=== PATIENT | male | born 1940 | race Caucasian/White ===

== ENCOUNTER 2017-02-18 09:12 | Inpatient (IN) | payer MEDICARE ==
[2017-02-18 10:00] LABS: #Basophils 0.1 thou/uL (0.0-0.2); #Eosinphils 0.1 thou/uL (0.0-0.7); #Lymphocytes 1.9 thou/uL (1.20-3.40); #Monocytes 0.7 thou/uL (0.11-0.59); #Neutrophils 6.1 thou/uL (1.40-6.50); %Eosinophils 1.6 % (0.0-10.0); %Lymphocytes 21.7 % (21.0-51.0); Hematocrit 37.9 % (42.0-52.0); Red Blood Cell (RBC) Count 3.95 mill/uL (4.70-6.10); White Blood Cell (WBC) Count 8.9 thou/uL (4.8-10.8)
[2017-02-18 10:16] LABS: Troponin I 0.012 ng/mL (< 0.028)
[2017-02-18 10:20] LABS: ALT (SGPT) 11 U/L (8-55); AST (SGOT) 19 U/L (5-34); Alkaline Phosphatase 63 U/L (40-150); Anion Gap 12 mmol/L (10-20); BUN (Urea Nitrogen) 23 mg/dL (8.4-25.7); CK (CPK) 96 U/L (30-200); Calc. Creatinine Clearance 0 mL/min (70-130); Calcium 10.1 mg/dL (7.8-10.44); Carbon Dioxide 26 mmol/L (23-31); Chloride 103 mmol/L (98-107); Estimated GFR-MDRD 43; Globulin 3.2 g/dL (2.4-3.5); Lipase 11 U/L (8-78)
[2017-02-18 10:22] LABS: Lactic Acid - Sepsis 4.9 mmol/L (0.5-2.2)
--- NOTE | 2017-02-18 10:44 | RAD ---
CHEST 1 VIEW: HISTORY: Chest pain. COMPARISON: 11/22/14. FINDINGS: Cardiac silhouette is magnified by projection. Pulmonary vasculature is unremarkable. Mediastinum is midline with aortic calcification, postoperative changes, and a multilead left subclavian cardiac electronic device. Subtle opaque disk projects over the left upper chest at the entry site of the electronic device wire lead and is favored to represent extrinsic artifact. There is mild parenchymal scarring at the lung bases. air sampling and monitoring leads overlie the chest. IMPRESSION: Chronic-type findings, as detailed above. POS: [facility]
[2017-02-18 11:07] LABS: Prothrombin Time 15.7 SEC (12.0-14.7)
--- NOTE | 2017-02-18 11:14 | PDOC.EVN ---
Event Note - Event Note Event Note: pt seen and exmained . h & p dictated #[id number]
[2017-02-18] MEDS ORDERED: Ondansetron HCl/PF 4 MG/2 ML Vial IVP PRN (12:54)
[2017-02-18] MEDS ORDERED: Ondansetron ODT 4 MG TAB SL PRN (12:54)
[2017-02-18] MEDS ORDERED: Sodium Chloride 0.9% 1,000 ML IV SCH (12:54)
[2017-02-18] MEDS ORDERED: Aspirin 325 MG TAB PO SCH (13:00)
[2017-02-18 13:34] LABS: Troponin I Less than 0.010 ng/mL (< 0.028)
--- NOTE | 2017-02-18 14:43 | HP ---
DATE OF ADMISSION: 02/18/2017 CHIEF COMPLAINT: Low blood pressure and chest pain. HISTORY OF PRESENT ILLNESS: The patient is a 77-year-old male with past medical history significant for coronary artery disease, status post CABG x3; CA; hypertension; type 2 diabetes mellitus; dysli pidemia; and status post AICD placement. Patient woke up this morning and became dizzy and lighthea ded. He also had substernal chest pain, radiating to his back. He checked his blood pressure and i t was on the lower side, so he called the EMS. His blood pressure was at that time noted to be 103/ 52, earlier it was 80. The patient denies any vomiting. He had no fever; however, he came to the E [facility] to be checked out. Over here, his blood pressure is noted to be normal. Patient says his cardiol ogist has been cutting down on his blood pressure medication because his blood pressure has been gallo pping. Patient has some dizzy spells and he attributes it to low blood pressure. Last time, he saw his styrene dehydration reactor operator, this was about 8 months ago. Currently, he is feeling better. Chest pain has re solved. PAST MEDICAL HISTORY: 1. Coronary artery disease. 2. Status post coronary artery bypass surgery. 3. Hypertension. 4. Type 2 diabetes mellitus. 5. History of asbestosis. 6. Ischemic cardiomyopathy. 7. Status post AICD placement. 8. Hyperlipidemia. PAST SURGICAL HISTORY: He has had bypass surgery and appendectomy. ALLERGIES: No known drug allergies. MEDICATIONS: Patient is currently on Coreg 3.125 mg p.o. b.i.d., this dose was recently adjusted be cause of low blood pressure by his styrene dehydration reactor operator. The patient is also taking atorvastatin, aspirin, and metformin. FAMILY HISTORY: Strongly positive for heart disease. SOCIAL HISTORY: The patient is retired. He lives with his family. He has a remote history of smok ing, currently denies any tobacco abuse. No history of alcohol or substance abuse. REVIEW OF SYSTEMS: Constitutional: No history of fever, weight loss, weight gain, night sweats, ch sina in appetite. HEENT: No visual disturbances, hearing problems, or headache. He has dizziness as mentioned above. Cardiac: As per history of present illness. Respiratory: No history of cough , wheezing, asthma, or hemoptysis. Gastrointestinal: Transient nausea as mentioned in the HPI. No abdominal pain, constipation, diarrhea, black stools, or blood in stools. Genitourinary: No de león e in urinary frequency, dysuria, or hematuria. Hematological: No easy bruising or bleeding. No hi story of cancer. Neurological: No history of tingling, numbness, paresthesias, or gait problems. PHYSICAL EXAMINATION: GENERAL: This is an elderly male, in no apparent distress. VITAL SIGNS: His blood pressure currently in the emergency room is 140/75, pulse rate 68, respirati ons 16, temperature 97.5. HEENT: Atraumatic, normocephalic. Pupils are reactive to light and accommodation. No pallor or ic terus. Oral cavity shows tongue is central. No central cyanosis or pallor. NECK: Supple. No thyromegaly, no JVD, no bruit. CHEST: On inspection, there is a midline sternotomy scar. AICD is in place in the left subclavian site. Chest is otherwise clear to auscultation. No rhonchi, no wheezing, no pleural rub. No inter costal retraction. The patient is not tachypneic. CARDIOVASCULAR: S1, S2 normal. No S3, S4, or murmur. ABDOMEN: Soft, nontender. Bowel sounds active. No guarding or rebound. No free fluid. No masses . EXTREMITIES: No clubbing or cyanosis. There is trace pitting pedal edema. Peripheral pulses are 2 + and equal. NEUROLOGIC: He is awake, alert, and oriented x3. No focal neurological deficit is noted. LABORATORY AND DIAGNOSTIC DATA: His white count is 8.9, hemoglobin 13, hematocrit 37.9, platelets o f 127. His sodium is 136, potassium 4.8, chloride 130, CO2 of 26, anion gap 12, BUN 23, creatinine 1.55, glucose 140. Lactic acid is 4.9, calcium 10.1, total bilirubin 1, AST 19, ALT 11, alkaline ph osphatase is 63, CK 96, troponin 0.012. BNP 276, total protein 7, albumin 3.8, globulin 3.2, lipase is 11. Chest x-ray is within normal limits. ASSESSMENT AND PLAN: 1. Transient hypertension, now resolved, likely secondary to medications. 2. Chest pain, doubt acute coronary syndrome, likely secondary to hypotension. 3. Resolved nausea secondary to hypotension. 4. Lactic acidosis likely secondary to metformin. No evidence of sepsis. 5. Coronary artery disease. 6. Ischemic cardiomyopathy. 7. Status post coronary artery bypass graft. 8. Type 2 diabetes mellitus. 9. Hypertension, controlled. 10. Hyperlipidemia. 11. Thrombocytopenia secondary to aspirin. 12. End-stage renal disease, chronic kidney disease, overall stable. 13. History of automatic implantable cardioverter defibrillator placement. DISCUSSION: At this time, the patient is medically stable. We will follow up on serial cardiac iso enzymes. We will hold the Coreg. We will get cardiology consultation. We will continue with other medications. We will put him on SCD for DVT prophylaxis. We will monitor the platelet count. We will add Protonix for stress ulcer prophylaxis. We will put him on sliding scale insulin coverage. Hold metformin due to the lactic acidosis and monitor sugars. Monitor creatinine. Further recomme ndations will be made depending on course of clinical events.
[2017-02-18 15:38] LABS: Troponin I 0.018 ng/mL (< 0.028)
[2017-02-18 16:39] VITALS: BMI 24.0
[2017-02-18] MEDS ORDERED: FLU VACC TS2017-18 (>65YR) 0.5 ML SYRINGE IM ONE (17:15)
[2017-02-18] MEDS: Atorvastatin Calcium 40 MG TAB PO SCH (21:12)
--- NOTE | 2017-02-18 23:06 | ULT ---
BILATERAL CAROTID DUPLEX ULTRASOUND: 02/18/17 HISTORY: Bilateral carotid bruit. TECHNIQUE: An scale ultrasound with color flow and spectral doppler imaging of the extracranial carotid arter y system is performed bilaterally. FINDINGS: There is plaque formation on both sides. The peak systolic velocity in the right ICA measures 70 cm/ s with an end diastolic velocity of 22 cm/s and systolic ratio of 0.97. The peak systolic velocity in the left ICA measures 127 cm/s with an end diastolic velocity of 33 cm /s and systolic ratio of 1.84. Flow in both vertebral arteries remains antegrade. IMPRESSION: Moderate (50-69%) stenosis involving the left ICA. POS: [facility]
--- NOTE | 2017-02-18 23:51 | CON ---
DATE OF CONSULTATION: 02/18/2017 INDICATION FOR CONSULTATION: This is a 77-year-old patient with a history of coronary artery diseas e, cardiomyopathy, and dizziness as well as lightheaded and hypertension. HISTORY OF PRESENT ILLNESS: This unfortunate 77-year-old gentleman has a significant past medical h istory, which includes coronary artery disease, myocardial infarction, bypass surgery in 2006 with a DURAN to the left anterior descending, reverse saphenous vein graft to the first and second obtuse m arginal branches of the left circumflex and a totally occluded RCA. At the time of the cardiac cath eterization, he was noted to have a distal disease in the obtuse marginal branch of about 30%, and t he saphenous vein graft to the second obtuse marginal branch was occluded. The DURAN was still paten t, but he did have some disease noted in the distal left anterior descending artery. Ejection fract ion at that time, I believe, was 25% to 30% when his cardiac catheterization, which was performed, I believe, in 2010. His bypass surgery was in 2006. He also has a history of type 2 diabetes, hyper tension in addition to ischemic cardiomyopathy. He has undergone an AICD implant due to history of ventricular tachycardia. He does have occasional atrial pacing noted when he has been seen by the e lectrophysiologist. He has been having some issues at home with being lightheaded and has occasiona l falls. He has had an episode today where he got up around 5:00 to 5:30 this morning, which is not unusual for him. He takes medications and shortly within the hour after that he became dizzy and l ightheaded. He took his blood pressure, it was found to be low. He then called his son, who came i n and also had difficulties in taking his blood pressure. They went [facility]. A repeat blood pressure was still in the 100s, and he presented here to the emergen cy room. By the time he is now here, his blood pressures in the 160s, it is quite possible his bloo d pressure was decreased due to taking the medications. They have been decreasing his medications r ecently due to hypotension and episodes of lightheadedness, but he also can tell the symptoms if blo od pressure is elevated and then he developed headaches. At this time, he appears to be stable. He denied any chest pain. He has had no episodes of syncope. He was uncertain as to whether or not clarisa carr may received the shock from the AICD a couple weeks ago. He said he woke up at night and felt lik e he had something made him jerk upwards, but he was uncertain whether or not he had been shocked. He has not had any calls from the paint roller winder. He does have a bedside monitor, making him t hink that perhaps he just had a dream, it was not necessarily shocked by the defibrillator. He did have a history of ventricular tachycardia in the past, for which he underwent the AICD implant as we ll as due to his cardiomyopathy. At this time, he denies any chest pain. He is feeling better, and dizziness also has improved. He at this time does have some mild headache, however. His cardiac e nzymes are unremarkable. His EKG is unremarkable for any acute episodes or any acute ischemic de león es. He has atrial pacing and ventricular sensing, and he has had no arrhythmias since being on the monitor on the telemetry floor, and his BNP is only 270. His laboratory data will be discussed late r, but there are no significant acute changes, and cardiac enzymes are negative. PAST MEDICAL HISTORY: Significant for the coronary artery disease as noted above with myocardial in farction and bypass surgery. He has hypertension, type 2 diabetes, history of ischemic cardiomyopat hy. He has AICD implanted due to history of ventricular tachycardia, hyperlipidemia, he also had a history of asbestosis. He has also had an appendectomy. ALLERGIES: None. MEDICATIONS PRIOR TO ADMISSION: Included Coreg, atorvastatin, aspirin, and metformin. FAMILY HISTORY: Positive for coronary artery disease. SOCIAL HISTORY: He is a . He denies any smoking at this time. He has no significant alcoho l use. He continues to live with his family. REVIEW OF SYSTEMS: He has dyspnea on exertion. He had occasional chest discomfort this morning; ho wever, it radiated to the back area and then resolved. He has not had any events since his bypass s urgery. He has some history of occasional nausea with headaches. He has had some right eye visual problems. 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 He has had so me lower extremity edema. Otherwise, 12-point review of systems is unremarkable except what was not ed in the history of present illness. PHYSICAL EXAMINATION: GENERAL: Reveals an elderly gentleman, who is in no acute distress at this time. VITAL SIGNS: The blood pressure elevated at 160/77, heart rate 61 and regular. He has atrial pacin g and ventricular sensing. Respiratory rate is 18. He is afebrile. HEENT: Shows head to be normocephalic and atraumatic. Carotid pulses are present. He does have bi lateral carotid bruits. CHEST: Clear to auscultation without rales, rhonchi, or wheezing. CARDIOVASCULAR: Exam reveals a regular rate and rhythm. He does have a very soft systolic murmur n oted at the apex and also at the upper sternal border, but otherwise no significant abnormalities we re noted. He has a well-healed surgical incision underneath the left infraclavicular area due to th e AICD implant. ABDOMEN: Soft, nontender, without any palpable masses. EXTREMITIES: Showed no clubbing or cyanosis. He had very mild trace edema noticed in the lower leg s and the ankle area. Pedal pulses are present. NEUROLOGIC: He appears to be intact with normal strength and tone for someone of his age. SKIN: Warm and dry at this time. RADIOGRAPHIC DATA: His EKG shows atrial pacing with ventricular sensing and no acute changes otherw ise, and no arrhythmias noted. LABORATORY DATA: Shows a creatinine of 1.55 with a BUN of 23. Hemoglobin is 13. BNP was 270. Car diac enzymes are unremarkable. They are negative for myocardial infarction. His INR is 1.2. IMPRESSION: 1. Episode of dizziness in a 77-year-old gentleman with hypotension; however, here the blood pressu re has been elevated. This may have been due to taking his medications this morning. We will sandy nue to adjust the medications. He is on a very low dose of medications at this time. 2. Bilateral carotid bruits. We will need to obtain a carotid Doppler to determine the severity of his severe carotid artery stenosis. This may be causing some of his dizziness and lightheadedness. 3. Type 2 diabetes, which will be dealt with by the primary service. 4. History of ischemic cardiomyopathy. This appears to be relatively stable, but we will need to d etermine whether or not he has been having some ventricular tachycardia again as this may also be ca using some hypotension, but he did not realize any shocks except for one possible episode a couple w eeks ago. We will determine this by evaluation of the automatic implantable cardioverter defibrilla tor. 5. Hyperlipidemia. We will continue his medications. At this time, he appears to be stable, and i f necessary, we may need to resume some of his home medications. At this time, these are being held due to his hypotension, and we will continue to follow him very carefully.
[2017-02-19] MEDS ORDERED: ISOVUE-370 76%-LOCM 1 ML ONE (04:08)
[2017-02-19] MEDS: Aspirin 325 mg Enteric Coated Tablet PO SCH (09:24)
[2017-02-19] MEDS ORDERED: Insulin Regular 300 UNITS/3 ML VIAL SC PRN (09:40)
[2017-02-19] MEDS ORDERED: Dextrose 50% Abboject 50 ML SYRINGE SLOW IVP PRN (09:40)
[2017-02-19] MEDS ORDERED: Dextrose 5% in Water 1,000 ML IV PRN (09:40)
--- NOTE | 2017-02-19 10:58 | PDOC.PN ---
- Subjective Encounter Start Date: 02/19/17 Encounter Start Time: 11:20 Subjective: Pt still with occasional dizziness. no CP. BP on higher side -: cardio input appreciated. pt had possible shocks at home -: for AICD interrogation. carotid doppler results noted - Objective Vital Signs & Weight: Vital Signs (12 hours) Temp Pulse Resp BP BP BP BP 02/19/17 07:40 97.5 F L 60 18 156/72 H 02/19/17 04:00 97.6 F 72 16 135/75 117/55 L 181/79 H 02/19/17 00:00 97.6 F 78 16 152/70 H Pulse Ox 02/19/17 07:40 99 02/19/17 04:00 99 02/19/17 00:00 97 Weight Weight 175 lb 14.4 oz I&O: 02/18/17 02/19/17 02/20/17 06:59 06:59 06:59 Intake Total 560 Output Total 1445 Balance -885 Result Diagrams: 02/18/17 09:33 02/18/17 09:33 Additional Labs: Accuchecks 02/19/17 02/18/17 06:00 21:04 POC Glucose 111 H 114 H Phys Exam - Physical Examination HEENT: PERRLA, moist MMs Neck: no nodes, no JVD Respiratory: no wheezing, no rales, no rhonchi, clear to auscultation bilateral Cardiovascular: RRR, no significant murmur Gastrointestinal: soft, non-tender, no distention Neurological: non-focal Psychiatric: A&O x 3 Skin: no rash Dx/Plan (1) Low BP Status: Acute (2) Chest pain Code(s): R07.9 - CHEST PAIN, UNSPECIFIED Status: Acute (3) CAD (coronary artery disease) Code(s): I25.10 - ATHSCL HEART DISEASE OF [place] CORONARY ARTERY W/O ANG PCTRS Status: Acute (4) Hx of CABG Status: Acute (5) Ischemic cardiomyopathy Code(s): I25.5 - ISCHEMIC CARDIOMYOPATHY Status: Acute (6) AICD (automatic cardioverter/defibrillator) present Code(s): Z95.810 - PRESENCE OF AUTOMATIC (IMPLANTABLE) CARDIAC DEFIBRILLATOR Status: Acute - Plan will cont current care . f/u on AICD interrogation results -: ? resume BP meds at night. pt has nocturia d/t BPH. ? doxazosin -: SSIC * .
--- NOTE | 2017-02-19 16:51 | PDOC.CTH ---
Cardiology Progress Note - Subjective Pt. seen and evaluated. No new complaints. No events overnight. Pacing. AICD interrogated. No events found. No indication the he received a shock. Normal function of the device.carotid eval. by doppler indicates 50-69% left internal carotid stenosis. This may be contributing to his balance problems but not necessarily. - Objective Vital Signs Temp Pulse Resp BP Pulse Ox 02/19/17 11:05 97.6 F 65 20 158/78 H 100 02/19/17 08:00 97.5 F L 60 18 99 02/19/17 07:40 97.5 F L 60 18 156/72 H 99 Weight 175 lb 14.4 oz 02/18/17 02/19/17 02/20/17 06:59 06:59 06:59 Intake Total 560 Output Total 1445 Balance -885 - Physical Examination General/Neuro: alert & oriented x3 Neck: other: (left carotid bruit) Lungs: CTA Heart: RRR Abdomen: no HSM - Telemetry Telemetry Rhythm: pacing - Labs Result Diagrams: 02/18/17 09:33 02/18/17 09:33 Troponin/CKMB CK-MB (CK-2) 3.2 ng/mL (0-6.6) 02/18/17 09:33 Troponin I 0.018 ng/mL (< 0.028) 02/18/17 15:04 - Assessment/Plan 1. CMY- stable. AICD checked. No events noted. 2. CAD - stable 3. left carotid artery stenosis. Plan for CTA. Review of Systems - Review of Systems Constitutional: denies: no symptoms reported, see HPI, chills, diaphoresis, fever, malaise, weakness, other Respiratory: denies: no symptoms reported, see HPI, cough, orthopnea, shortness of breath, SOB with excertion, SOB at rest, stridor, wheezing, other Cardiac (ROS): denies: no symptoms reported, see HPI, chest pain, edema, irregular heart rate, lightheadedness, palpitations, syncope, other ABD/GI: denies: no symptoms reported, see HPI, abdomen distended, abdominal pain , blood streaked bowels, constipated, diarrhea, difficulty swallowing, nausea, poor appetite, poor fluid intake, rectal bleeding, vomiting, other Musculoskeletal: denies: no symptoms reported, see HPI, back pain, gout, joint pain, joint swelling, muscle pain, muscle stiffness, neck pain, other Neurological: reports: other (unsteady gait and balance )
--- NOTE | 2017-02-19 21:03 | CT ---
CTA NECK WITH 3D VOLUME RENDERING: Clinical history: Carotid stenosis. Comparison: Carotid ultrasound, previous day. FINDINGS: 3D volume rendering performed of the carotid arteries. Calcified and ulcerative plaque is seen within the imaged aortic arch. The great vessel origins whic h emanate from the aortic arch reveal no high grade focal stenosis or occlusion. There is mild regio nal calcification. There is multifocal mild calcification of the right subclavian artery without hig h grade focal stenosis. The left subclavian artery is patent. Evaluation of each common carotid artery reveals mild scattered vascular calcification without high grade focal stenosis. There is eccentrically located prominent plaque at the right carotic bulb with out high grade focal stenosis of the right ICA. Moderate focal stenosis is present at the origin of the cervical left ICA related to calcified and noncalcified plaque. Calcification seen at each visua lized distal, intracranial carotid artery. Relatively co-dominant bilateral vertebral arteries are p resent with scattered vascular calcification although no high grade focal stenosis of the visualized vertebral arteries. Prominent narrowing of the left external carotid artery origin is present. IMPRESSION: Scattered atherosclerotic vascular disease. This does result in moderate focal stenosis at the origi n of the cervical left ICA. POS: [facility]
[2017-02-19] MEDS: Atorvastatin Calcium 40 MG TAB PO SCH (21:45)
[2017-02-20] MEDS: Aspirin 325 mg Enteric Coated Tablet PO SCH (08:56)
--- NOTE | 2017-02-20 11:27 | PDOC.PN ---
- Subjective Encounter Start Date: 02/20/17 Encounter Start Time: 11:25 Patient seen at bedside. Still feeling dizzy, was orthostatic this morning. - Objective Vital Signs & Weight: Vital Signs (12 hours) Temp Pulse Resp BP BP BP BP 02/20/17 08:00 97.8 F 69 18 02/20/17 07:24 97.8 F 69 18 165/80 H 02/20/17 05:23 97.9 F 67 18 102/59 L 83/52 L 147/71 H Pulse Ox 02/20/17 08:00 97 02/20/17 07:24 97 02/20/17 05:23 97 Weight Weight 173 lb I&O: 02/19/17 02/20/17 02/21/17 06:59 06:59 06:59 Intake Total 560 940 Output Total 1445 1450 Balance -885 -510 Result Diagrams: 02/18/17 09:33 02/18/17 09:33 Additional Labs: Accuchecks 02/20/17 02/19/17 02/19/17 06:22 20:50 17:17 POC Glucose 115 H 125 H 90 02/19/17 13:11 POC Glucose 114 H Phys Exam - Physical Examination HEENT: moist MMs Neck: no JVD Respiratory: no wheezing, clear to auscultation bilateral Cardiovascular: RRR Gastrointestinal: soft Musculoskeletal: pulses present Neurological: moves all 4 limbs Psychiatric: normal affect, A&O x 3 Dx/Plan (1) Dizziness Code(s): R42 - DIZZINESS AND GIDDINESS Status: Acute (2) AICD (automatic cardioverter/defibrillator) present Code(s): Z95.810 - PRESENCE OF AUTOMATIC (IMPLANTABLE) CARDIAC DEFIBRILLATOR Status: Chronic (3) CAD (coronary artery disease) Code(s): I25.10 - ATHSCL HEART DISEASE OF [place] CORONARY ARTERY W/O ANG PCTRS Status: Chronic (4) Chest pain Code(s): R07.9 - CHEST PAIN, UNSPECIFIED Status: Resolved - Plan cont current plan of care, plan discussed w/ family, PT/OT, social sciences professor, DVT proph w/SCDs * All BP Meds held. * Check random cortisol * Appreciate Cardiology input. The patient has noted carotid artery stenosis. It is unclear if this is the cause of his dizziness vs a cardiac issue. * Possible catherization if renal function improves or stabilizes * Will follow up further cardiac recommendations.
[2017-02-20 12:27] LABS: Anion Gap 9 mmol/L (10-20); BUN (Urea Nitrogen) 18 mg/dL (8.4-25.7); Calc. Creatinine Clearance 56 mL/min (70-130); Calcium 9.5 mg/dL (7.8-10.44); Carbon Dioxide 27 mmol/L (23-31); Chloride 103 mmol/L (98-107); Estimated GFR-MDRD 60
[2017-02-20] MEDS ORDERED: Communication Order-Pharmacy FS SCH (13:30)
[2017-02-20] MEDS: Atorvastatin Calcium 40 MG TAB PO SCH (21:59)
[2017-02-21] MEDS: Aspirin 325 mg Enteric Coated Tablet PO SCH (05:05)
--- NOTE | 2017-02-21 06:41 | EKG ---
Test Reason : CHESTPAIN Blood Pressure : / mmHG Vent. Rate : 063 BPM Atrial Rate : 062 BPM P-R Int : 000 ms QRS Dur : 090 ms QT Int : 412 ms P-R-T Axes : 000 022 -30 degrees QTc Int : 421 ms Electronic atrial pacemaker Possible Inferior infarct , age undetermined Abnormal ECG Confirmed by BRADY ABRAHAM, FRANCES ([id number]), movie editor CHRISTIE MANUEL ([id number]) on 02/21/2017 6:41:08 AM Referred By: Confirmed By:FRANCES ABREU MD
[2017-02-21] MEDS ORDERED: Sodium Chloride 0.65% Nasal 44 ML BOT EA NARE PRN (07:57)
[2017-02-21] MEDS ORDERED: Ondansetron ODT 4 MG TAB PO PRN (07:57)
[2017-02-21] MEDS ORDERED: HYDROcodone/Acetaminophen 5/325 mg Tablet PO PRN (07:57)
[2017-02-21] MEDS ORDERED: Acetaminophen 325 MG TAB PO PRN (07:57)
[2017-02-21] MEDS ORDERED: Nitroglycerin 0.4 MG TAB (25 Tab Bottle) SL PRN ×2 (07:57→08:38)
[2017-02-21] MEDS ORDERED: Zolpidem Tartrate 5 MG TAB PO PRN (07:57)
[2017-02-21] MEDS ORDERED: Eucerin (Mineral Oil/Petrolatum,White) 30 gm Jar TOP PRN (07:57)
[2017-02-21] MEDS ORDERED: Milk Of Magnesia 30 ML UDCUP PO PRN (07:57)
[2017-02-21] MEDS ORDERED: Loratadine 10 MG TAB PO PRN (07:57)
[2017-02-21] MEDS ORDERED: Senokot 8.6 MG TAB PO PRN (07:57)
[2017-02-21] MEDS ORDERED: Mag-Al 1200 mg/1200 mg/30 ML UDCUP PO PRN (07:57)
[2017-02-21] MEDS ORDERED: Diabetic Tussin 200 MG/10 ML UDCUP PO PRN (07:57)
[2017-02-21] MEDS ORDERED: Loperamide HCl 2 MG CAP PO PRN (07:57)
[2017-02-21] MEDS ORDERED: Artificial Tears 18 DROP/0.9 ML EA EYE PRN (07:57)
[2017-02-21] MEDS ORDERED: Ondansetron HCl/PF 4 MG/2 ML Vial IVP PRN (07:57)
[2017-02-21] MEDS ORDERED: Acetaminophen/Codeine 30-300mg Tablet PO PRN ×2 (08:38)
[2017-02-21] MEDS ORDERED: traMADol HCl 50 MG TAB PO PRN (08:38)
[2017-02-21] MEDS ORDERED: Sodium Chloride 0.9% 200 ML IV SCH (08:45)
[2017-02-21] MEDS: Famotidine 20 MG TAB PO SCH ×2 (09:30→21:11)
--- NOTE | 2017-02-21 10:10 | PDOC.PN ---
- Subjective Encounter Start Date: 02/21/17 Encounter Start Time: 09:00 -: old records requested/rev Patient seen and examined. No new complaints. No overnight events, s/p cardiac cath - Objective MAR Reviewed: Yes Vital Signs & Weight: Vital Signs (12 hours) Temp Pulse Resp BP Pulse Ox 02/21/17 04:00 97.2 F L 70 18 169/78 H 97 Weight Weight 169 lb 6 oz I&O: 02/20/17 02/21/17 02/22/17 06:59 06:59 06:59 Intake Total 940 75 Output Total 1450 975 Balance -510 -900 Result Diagrams: 02/18/17 09:33 02/20/17 11:59 Additional Labs: Accuchecks 02/21/17 02/20/17 02/20/17 06:32 21:34 17:21 POC Glucose 105 115 H 149 H 02/20/17 11:47 POC Glucose 145 H Radiology Reviewed by me: Yes EKG Reviewed by me: Yes Phys Exam - Physical Examination Constitutional: NAD HEENT: PERRLA, moist MMs, sclera anicteric Neck: no JVD, supple Respiratory: no wheezing, no rales, no rhonchi Cardiovascular: RRR, no significant murmur, no rub Gastrointestinal: soft, non-tender, no distention, positive bowel sounds Musculoskeletal: no edema, pulses present Neurological: non-focal, normal sensation, moves all 4 limbs Psychiatric: normal affect, A&O x 3 Skin: no rash, normal turgor Dx/Plan (1) Acute kidney failure Status: Resolved (2) Dizziness Code(s): R42 - DIZZINESS AND GIDDINESS Status: Acute (3) Lactic acidosis Code(s): E87.2 - ACIDOSIS Status: Resolved (4) Low BP Status: Resolved (5) AICD (automatic cardioverter/defibrillator) present Code(s): Z95.810 - PRESENCE OF AUTOMATIC (IMPLANTABLE) CARDIAC DEFIBRILLATOR Status: Chronic (6) CAD (coronary artery disease) Code(s): I25.10 - ATHSCL HEART DISEASE OF [place] CORONARY ARTERY W/O ANG PCTRS Status: Chronic (7) Carotid stenosis, left Code(s): I65.22 - OCCLUSION AND STENOSIS OF LEFT CAROTID ARTERY Status: Chronic (8) Hx of CABG Status: Chronic (9) Ischemic cardiomyopathy Code(s): I25.5 - ISCHEMIC CARDIOMYOPATHY Status: Chronic (10) Chest pain Code(s): R07.9 - CHEST PAIN, UNSPECIFIED Status: Resolved - Plan cont current plan of care * s/p cardiac cath, showed diffuse disease * spoke with cardiology, will add ranexa * cardiovascular consulted for carotid stenosis * will monitor today * medication reviewed as below * symptomatic treatment. Review of Systems - Review of Systems ENT: negative: Ear Pain, Ear Discharge, Nose Pain, Nose Discharge, Nose Congestion, Mouth Pain, Mouth Swelling, Throat Pain, Throat Swelling, Other Respiratory: negative: Cough, Dry, Shortness of Breath, Hemoptysis, SOB with Excertion, Pleuritic Pain, Sputum, Wheezing Cardiovascular: negative: Chest Pain, Palpitations, Orthopnea, Paroxysmal Noc. Dyspnea, Edema, Light Headedness, Other Gastrointestinal: negative: Nausea, Vomiting, Abdominal Pain, Diarrhea, Constipation, Melena, Hematochezia, Other Genitourinary: negative: Dysuria, Frequency, Incontinence, Hematuria, Retention , Other Musculoskeletal: negative: Neck Pain, Shoulder Pain, Arm Pain, Back Pain, Hand Pain, Leg Pain, Foot Pain, Other - Medications/Allergies Allergies/Adverse Reactions: Allergies Allergy/AdvReac Type Severity Reaction Status Date / Time No Known Drug Allergies Allergy Verified 11/22/14 18:53 Medications: Current Medications Acetaminophen (Tylenol) 650 mg PO Q4H PRN PRN Reason: Headache/Fever or Mild Pain Acetaminophen/Codeine Phosphate (Tylenol #3) 1 tab PO Q4H PRN PRN Reason: Mild Pain (1-3) Acetaminophen/Codeine Phosphate (Tylenol #3) 2 tab PO Q4H PRN PRN Reason: Moderate Pain (4-6) Hydrocodone Bitart/Acetaminophen ([place] 5/325) 1 tab PO Q4H PRN PRN Reason: Moderate Pain (4-6) Al Hydroxide/Mg Hydroxide (Maalox) 15 ml PO Q4H PRN PRN Reason: Heartburn or Indigestion Artificial Tears (Tears Naturale) 0 drop EA EYE PRN PRN PRN Reason: Dry Eyes Aspirin (Ecotrin) 325 mg PO DAILY [facility] Last Admin: 02/21/17 05:05 Dose: 325 mg Atorvastatin Calcium (Lipitor) 80 mg PO HS [facility] Last Admin: 02/20/17 21:59 Dose: 80 mg Dextrose/Water (Dextrose 50%) 25 gm SLOW IVP PRN PRN PRN Reason: Hypoglycemia Famotidine (Pepcid) 20 mg PO BID DEISI Glucagon (Glucagon) 1 mg IM PRN PRN PRN Reason: Hypoglycemia Guaifenesin (Robitussin Sf) 200 mg PO Q4H PRN PRN Reason: Cough Hydralazine HCl (Apresoline) 10 mg SLOW IVP Q4H PRN PRN Reason: Systolic BP > 180 Dextrose/Water (D5w) 1,000 mls @ 0 mls/hr IV .Q0M PRN; As Directed PRN Reason: Hypoglycemia Insulin Human Regular (Humulin R) 0 units SC .MILD SLIDING SCALE PRN PRN Reason: Mild Correctional Scale Loperamide HCl (Imodium) 2 mg PO PRN PRN PRN Reason: Diarrhea/Loose Stools Loratadine (Claritin) 10 mg PO DAILYPRN PRN PRN Reason: Sinus Symptoms Magnesium Hydroxide (Milk Of Magnesium) 30 ml PO DAILYPRN PRN PRN Reason: Constipation Mineral Oil/White Petrolatum (Eucerin Cream) 0 gm TOP BIDPRN PRN PRN Reason: Dry Skin Nitroglycerin (Nitrostat) 0.4 mg SL Q5MIN PRN PRN Reason: Chest Pain Nitroglycerin (Nitrostat) 0.4 mg SL Q5MIN PRN PRN Reason: Chest Pain Ondansetron HCl (Zofran Odt) 4 mg PO Q6H PRN PRN Reason: Nausea/Vomiting Ondansetron HCl (Zofran) 4 mg IVP Q6H PRN PRN Reason: Nausea/Vomiting Ranolazine (Ranexa) 500 mg PO BID DEISI Senna (Senokot) 2 tab PO HSPRN PRN PRN Reason: Constipation Sodium Chloride (Flush - Normal Saline) 10 ml IVF PRN PRN PRN Reason: Saline Flush Sodium Chloride ([place] Nasal Hasty 0.65%) 0 ml EA NARE QIDPRN PRN PRN Reason: Nasal Congestion Tramadol HCl (Ultram) 50 mg PO Q6H PRN PRN Reason: Moderate Pain (4-6) Zolpidem Tartrate (Ambien) 5 mg PO HSPRN PRN PRN Reason: Insomnia
[2017-02-21] MEDS ORDERED: Iopamidol 370 76% 50 ML VIAL FS ONE (12:35)
[2017-02-21] MEDS ORDERED: Iopamidol 370 76% 100 ML VIAL ONE (12:35)
--- NOTE | 2017-02-21 13:32 | CON ---
DATE OF CONSULTATION: 02/21/2017 HISTORY OF PRESENT ILLNESS: Mr. Beebe is a 77-year-old gentleman, who was admitted with hypoten julio, dizziness, and lightheadedness. He has a history of coronary artery disease, status post dominga nary bypass grafting x3. He also has a defibrillator. He has undergone cardiac catheterization, wh ich shows diffuse non-bypassable disease. While he has been here, he has had a carotid ultrasound performed, which shows on the left internal carotid artery peak systolic velocity of 127. The ratio is 1.84. On the right, the peak systolic v elocity is 70 with a ratio of 0.97. This was followed up with a CT angiogram, which shows a moderat e degree of stenosis in his left internal carotid artery origin. The patient has had no other neurologic symptoms that can be attributed to his cerebral circulation. PAST MEDICAL HISTORY: 1. Coronary artery disease. 2. Left carotid stenosis. 3. Hypertension. 4. Diabetes mellitus. 5. History of asbestosis. 6. Ischemic cardiomyopathy, status post ICD placement. 7. Hyperlipidemia. PAST SURGICAL HISTORY: 1. Coronary artery bypass grafting x3. 2. Appendectomy. CURRENT MEDICATIONS: Noted. ALLERGIES: None. SOCIAL HISTORY: He is retired and lives at home. He does not use tobacco, alcohol or other substan rajendra. REVIEW OF SYSTEMS: Ten point review of systems is performed and is negative except as above. PHYSICAL EXAMINATION: GENERAL: Well-developed, well-nourished man in no acute distress. VITAL SIGNS: Height is 6 feet, weight 169 pounds, BSA is 1.98. Temperature is 97.4, pulse is 63 an d regular, blood pressure 169/78. NECK: Supple. He has no carotid bruits. LUNGS: Chest is clear bilaterally. HEART: Rhythm is regular. Sternum has healed nicely. ABDOMEN: Soft and nontender. EXTREMITIES: No edema. VASCULAR: He has equal motor function bilaterally. He has no facial droop. Vision has had no srivastava ges. ASSESSMENT AND PLAN: Asymptomatic left carotid stenosis of less than 70%. I will see him back in 6 months and repeat his ultrasound and follow him on a chronic basis. The patient is already on a st atin and aspirin. Thank you for consult.
[2017-02-21] MEDS: Atorvastatin Calcium 40 MG TAB PO SCH (21:10)
[2017-02-22] MEDS: Aspirin 325 mg Enteric Coated Tablet PO SCH (09:46)
[2017-02-22] MEDS: Famotidine 20 MG TAB PO SCH (09:47)
--- NOTE | 2017-02-22 10:43 | DIS ---
PRIMARY CARE PHYSICIAN: Dr. Karl Feliciano DATE OF ADMISSION: 02/18/2017 DATE OF DISCHARGE: 02/22/2017 DISCHARGE DISPOSITION: Home. PRIMARY DISCHARGE DIAGNOSES: 1. Acute kidney failure, improved. 2. Lactic acidosis, resolved. 3. Hypotension, resolved. 4. Chest pain, ruled out acute coronary syndrome. 5. Dizziness, likely due to hypotension, resolved. 6. Status post cardiac catheterization. 7. Left carotid stenosis. SECONDARY DISCHARGE DIAGNOSES: Ischemic cardiomyopathy with AICD, coronary artery disease, history of coronary artery bypass grafting. PRIMARY PROCEDURE/OPERATION: Cardiac catheterization was performed by Dr. Ochoa and the patient was not a surgical candidate. RADIOLOGICAL INVESTIGATION: Chest x-ray was normal. Carotid Doppler showed carotid stenosis on the left side. CT angiography showed carotid stenosis on the left side. SIGNIFICANT LABS: WBC 8.9, hemoglobin 13.0, platelets 127, INR 1.0, D-dimer 0.35, sodium 135, creatinine 1.18, calcium 9.5. Cortisol 6.50. LFTs normal. Cardiac enzymes negative x3. Lactic acid improved to 1.5. BNP 270, blood culture negative. DISCHARGE MEDICATIONS: Aspirin 325 mg p.o. daily, Lipitor 80 mg p.o. at bedtime , Coreg 3.125 mg p.o. b.i.d., Pepcid 20 mg p.o. b.i.d., Ranexa 500 mg p.o. b.i.d., metformin 500 mg p.o. daily. CONTRAINDICATIONS: None. CODE STATUS: FULL CODE. INPATIENT CONSULTANTS: Dr. Ochoa and Dr. Montejo was consulted while in hospital. Dr. Librado Mueller was consulted while in hospital. TEST RESULTS PENDING ON DISCHARGE: None. ALLERGIES: No known drug allergy. DISCHARGE PLAN: Post hospital, the patient will follow up with Dr. Karl Feliciano in 1 week. The patient is advised to make appointment with Dr. Librado Muellre and Dr. Ochoa as directed. HOSPITAL COURSE: A 77-year-old male with above mentioned medical problems who was admitted by Dr. Garcia on 02/18/2017. On admission, the patient was having low blood pressure, had dizziness and chest pain. Routine blood tests showed elevated creatinine and the patient was found with acute kidney failure. The patient was given IV fluid and after that his renal function improved. His dizziness resolved and we did serial cardiac enzymes to rule out acute coronary syndrome and that was also negative. The patient had acute kidney failure and that is why metformin was kept on hold. His lactic acidosis improved with hydration. We did a carotid ultrasound that also showed some carotid stenosis. After that we did a CT angiography which also showed carotid stenosis on the left side. Dr. Librado Mueller was consulted and he recommended to follow up with him on an outpatient basis. While in hospital, Dr. Forrest Ochoa and Dr. Montejo was following and they did a cardiac catheterization and the patient was found with diffuse disease and that is why they started on Ranexa therapy. At this point, the patient is hemodynamically stable. He is back to his normal. He wants to go home. Cardiology cleared him for discharge. The patient is seen and examined at bedside today. VITAL SIGNS: Currently, temperature 97.6, pulse 69, respiratory rate 16, saturation 98%, blood pressure 139/69, weight 170 pounds. GENERAL: The patient is currently alert, awake, no acute distress. HEAD: Normocephalic, atraumatic. EYES: Pupils round, reactive to light. Extraocular muscles intact. ENT: Oropharynx within normal limits. LUNGS: Clear to auscultation without any rhonchi or rales. CARDIAC: S1, S2 regular without any murmur. ABDOMEN: Soft and benign. EXTREMITIES: No edema. NEUROLOGIC: Nonfocal examination. The patient is medically stable for discharge today. All new medication prescriptions given to him. Total time spent on discharge day more than 30 minutes MTDD
[2017-02-22 19:50] VITALS: TEMP 97.4
[2017-02-22 20:05] VITALS: BP 112/54
== END 2017-02-22 13:15 | disposition home or self-care (01) | DRG 683 ==
LOC: ERS 09:12 → 2NO 12:20
PROVIDERS: ADMIT Internal Medicine; ATTEND Internal Medicine
PROC: B2181ZZ Fluoroscopy of Left Internal Mammary Bypass Graft using Low Osmolar Contrast (ICD-10-PCS; principal; 2017-02-18)
PROC: 4A023N7 Measurement of Cardiac Sampling and Pressure, Left Heart, Percutaneous Approach (ICD-10-PCS; 2017-02-18)
PROC: B2131ZZ Fluoroscopy of Multiple Coronary Artery Bypass Grafts using Low Osmolar Contrast (ICD-10-PCS; 2017-02-18)
PROC: B2111ZZ Fluoroscopy of Multiple Coronary Arteries using Low Osmolar Contrast (ICD-10-PCS; 2017-02-18)
PROC: B2151ZZ Fluoroscopy of Left Heart using Low Osmolar Contrast (ICD-10-PCS; 2017-02-18)
DX: N17.9 Acute kidney failure, unspecified (principal); E87.2 Acidosis; I12.0 Hypertensive chronic kidney disease with stage 5 chronic kidney disease or end stage renal disease; E11.22 Type 2 diabetes mellitus with diabetic chronic kidney disease; D69.59 Other secondary thrombocytopenia; I95.9 Hypotension, unspecified; I65.22 Occlusion and stenosis of left carotid artery; I25.10 Atherosclerotic heart disease of native coronary artery without angina pectoris; Z95.1 Presence of aortocoronary bypass graft; I25.2 Old myocardial infarction; I25.5 Ischemic cardiomyopathy; Z95.810 Presence of automatic (implantable) cardiac defibrillator; E78.5 Hyperlipidemia, unspecified; N18.6 End stage renal disease; Z79.84 Long term (current) use of oral hypoglycemic drugs; Z87.891 Personal history of nicotine dependence; T39.015A Adverse effect of aspirin, initial encounter; Z79.82 Long term (current) use of aspirin; R07.9 Chest pain, unspecified
CPT/HCPCS: 36415; 36416; 70498; 71010; 80048; 80053; 82533; 82553; 83605; 83690; 83880; 84484; 85025; 85379; 85610; 85730; 87040; 90471; 90682; 93005; 93455; 93880; 96360; 96361; C1769; G0008; J1644; Q2036

== ENCOUNTER 2017-04-28 16:02 | Emergency (ER) | payer MEDICARE ==
[2017-04-28 16:42] LABS: #Eosinphils 0.2 thou/uL (0.0-0.7); #Lymphocytes 1.8 thou/uL (1.20-3.40); #Monocytes 0.7 thou/uL (0.11-0.59); #Neutrophils 5.9 thou/uL (1.40-6.50); %Basophils 0.3 % (0.0-1.0); %Eosinophils 2.1 % (0.0-10.0); %Lymphocytes 21.1 % (21.0-51.0); %Monocytes 7.8 % (0.0-10.0); Hematocrit 31.9 % (42.0-52.0); Mean Platelet Volume 7.9 fL (7.4-10.4); White Blood Cell (WBC) Count 8.6 thou/uL (4.8-10.8)
[2017-04-28 17:03] LABS: ALT (SGPT) 13 U/L (8-55); AST (SGOT) 22 U/L (5-34); Alkaline Phosphatase 61 U/L (40-150); Anion Gap 9 mmol/L (10-20); BUN (Urea Nitrogen) 22 mg/dL (8.4-25.7); Bilirubin, Total 0.8 mg/dL (0.2-1.2); Calc. Creatinine Clearance 0 mL/min (70-130); Carbon Dioxide 26 mmol/L (23-31); Chloride 106 mmol/L (98-107); Estimated GFR-MDRD 56; Globulin 2.9 g/dL (2.4-3.5); Protein, Total 6.3 g/dL (5.8-8.1)
== END 2017-04-28 19:45 | disposition home or self-care (01) ==
LOC: ERS 16:02
DX: K40.90 Unilateral inguinal hernia, without obstruction or gangrene, not specified as recurrent (principal); I25.10 Atherosclerotic heart disease of native coronary artery without angina pectoris; I25.2 Old myocardial infarction; E11.9 Type 2 diabetes mellitus without complications; E78.5 Hyperlipidemia, unspecified; I10 Essential (primary) hypertension; Z87.891 Personal history of nicotine dependence; Z79.84 Long term (current) use of oral hypoglycemic drugs; Z79.82 Long term (current) use of aspirin; Z79.899 Other long term (current) drug therapy
CPT/HCPCS: 36415; 80053; 85025; 93005

== ENCOUNTER 2017-05-01 15:23 | Outpatient (CLI) | payer MEDICARE | END 2017-05-01 15:24 | disposition home or self-care (01) | LOC: SDC 15:23 | PROVIDERS: ATTEND Specialist | DX: Z01.818 Encounter for other preprocedural examination (principal); K40.90 Unilateral inguinal hernia, without obstruction or gangrene, not specified as recurrent ==

== ENCOUNTER 2017-05-02 09:59 | Day surgery (SDC) | payer MEDICARE ==
[2017-05-01 15:38] VITALS: BMI 23.7
--- NOTE | 2017-05-01 19:13 | HP ---
HISTORY OF PRESENT ILLNESS: Antonio Beebe is a 77-year-old male patient who presents with left ing uinal hernia. He is followed by Dr. Karl Feliciano. I saw Mr. Beebe in November last year for left i nguinal hernia and wishes to repair that with mesh. The patient saw Dr. Ochoa. The patient was c leared for surgery after negative cardiac stress test as he was asymptomatic. He has a defibrillator . He has had previous coronary artery bypass grafting, but he is asymptomatic. Today, I talked to Isabel Ochoa again and Dr. Ochoa states the patient is cleared for surgery as the patient is not bush ving any angina. The patient had an echocardiogram in 2014, 50% EF. Cardiac stress test 11/10/2015, large inferior scar, no evidence of ischemia. The patient was felt to be appropriate risk without f urther intervention. He has automatic implantable defibrillator present. The plan is left inguinal hernia repair with mesh. Risk of infection, bleeding, reoperation, recurrence of hernia explained an d he consents. MEDICATIONS: Carvedilol 3.125 mg a day, metformin daily, atorvastatin once a day, Ellen aspirin 325 mg a day. PAST MEDICAL HISTORY: Diabetes mellitus, coronary artery disease, stable and hypertension. PAST SURGICAL HISTORY: Appendectomy as a child, coronary artery bypass grafting in 2006, cardiac str ess test 2015, defibrillator 2010. TOBACCO: None. ALCOHOL: None. ALLERGIES: None. REVIEW OF SYSTEMS: Ten point, noncontributory. PHYSICAL EXAMINATION: VITAL SIGNS: 125/70, 72, 99 degrees, 177 pounds, 6 foot tall, 24 BMI. HEAD, EYES, EARS, NOSE, AND THROAT: Unremarkable. LUNGS: Clear to auscultation. CARDIAC: Regular rate and rhythm without murmur or gallop. Left chest defibrillator in place. ABDOMEN: Soft, nontender. Testicles are normal. Right groin without hernia on standing. Left groi n inguinal hernia, enlarges on Valsalva. ASSESSMENT AND PLAN: 1. Left inguinal hernia. Plan, repair using mesh. He understands the risks of infection, bleeding, reoperation, recurrence of hernia and consents. He has been in the emergency room on two different occasions in the last week, one in , and one in [facility]. He wants this repaired . 2. The patient has BPH symptoms, nocturia, frequency, decreased force of stream, has started on Flom ax 0.4 mg a day. He is at risk for urinary retention. We will make an appointment to see the urolog ist.
[2017-05-02] MEDS ORDERED: Lidocaine 2% w/Epinephrine 1:200K 20 ML VIAL ONE (11:07)
[2017-05-02] MEDS ORDERED: Bupivacaine 0.25% HCL 30 ML VIAL ONE (11:07)
[2017-05-02] MEDS ORDERED: CEFAZOLIN/Water 2 GM/20 ML SYRINGE ONE (11:08)
[2017-05-02] MEDS ORDERED: Ketorolac Tromethamine 30 MG/ML VIAL ONE (11:08)
[2017-05-02] MEDS ORDERED: Lidocaine 1% PF 5 ML VIAL ONE (11:10)
[2017-05-02] MEDS ORDERED: Propofol 200 MG/20 ML VIAL ONE (11:10)
[2017-05-02] MEDS ORDERED: PHENYLEPHRINE-NS 100 MCG/ML 10 ML SYRINGE ONE (11:10)
[2017-05-02] MEDS ORDERED: Ondansetron HCl/PF 4 MG/2 ML Vial ONE (11:10)
[2017-05-02] MEDS ORDERED: Dextrose 50% Abboject 50 ML SYRINGE ONE (11:49)
[2017-05-02] MEDS ORDERED: Fentanyl 100 MCG/2 ML VIAL ONE ×2 (13:09→15:05)
[2017-05-02] MEDS ORDERED: Lidocaine 2% PF 5 ML VIAL ONE (13:18)
[2017-05-02] MEDS ORDERED: Bupivacaine/Epinephrine 0.25% 30 ML VIAL ONE (13:18)
[2017-05-02 14:42] LABS: Bilirubin Negative (Negative); Blood, Urine Moderate (Negative); Glucose, Urine (Dipstick) Negative (Negative); Ketone, Urine Negative (Negative); Nitrite Negative (Negative); Protein, Urine (Dipstick) Negative (Neg-Trace)
[2017-05-02 14:50] LABS: Bacteria/HPF None Seen HPF (None Seen); Hyaline Casts/LPF 0-3 HYALINE CAST LPF (0-3 Hyaline); RBC/HPF GREATER THAN 50-TNTC HPF (0-3); Squamous Epithelial None Seen HPF (0-3); WBC/HPF None Seen HPF (0-3)
--- NOTE | 2017-05-02 19:03 | OP ---
DATE OF PROCEDURE: 05/02/2017 PREOPERATIVE DIAGNOSES: Bilateral inguinal hernias, left symptomatic, right asymptomatic, nocturia e very hour frequency, every hour decreased forces of stream, benign prostatic hypertrophy symptoms. POSTOPERATIVE DIAGNOSES: Bilateral inguinal hernias, left symptomatic, right asymptomatic, nocturia every hour frequency, every hour decreased forces of stream, benign prostatic hypertrophy symptoms. PROCEDURE PERFORMED: Left inguinal hernia repair with PHS mesh, indirect hernia. Storm catheter jose yana given the procedure and left in place. Urinalysis culture sent. Patient was started on Flomax. Urology appointment in 48 hours. SURGEON: Dr. Meyers. ANESTHESIA: General. Local 0.25% Marcaine with epinephrine mixed with 1% Xylocaine with epinephrine , 30 mL each total mixture used. Note, patient has appointment with urologist in 48 hours. PROCEDURE IN DETAIL: The patient was taken to the operating room where under general LMA anesthesia, abdomen was clipped of hair, prepared with chloraprep, draped in routine fashion. After Storm ke ter was placed in sterile technique and urine culture submitted, abdomen was prepared and incision wa s made in the left groin and carried down through the skin and subcutaneous tissue after ilioinguinal nerve block and local anesthetic infiltrated into skin and subcutaneous tissue about the operative s ite. External oblique identified and opened to the external ring and cord structures dissected free and surrounded with a Basil drain. Cremasteric fibers taken down with the cautery. Hernia sac jayde ntified, opened under direct visualization, highly ligated with a pursestring suture of 0 Nurolon. H igh excision of hernia sac was performed, to the stump of the hernia sac, PHS mesh underlay portion w as secured with 0 Nurolon, placed in the preperitoneal space. An onlay portion placed in the floor o f canal. A slit was made in the mesh laterally connecting the ring and mesh, brought around the cord structures creating a synthetic internal ring. The mesh was reapproximated laterally to Poupart's l igament. Inferiorly, the mesh secured to Leopoldo's ligament, both with 0 Nurolon. The extended porti on placed high in the inguinal canal beneath the external oblique. Good hemostasis noted. The exter nal oblique was closed with continuous suture of 3-0 Monocryl, Camper's fascia with continuous suture of 3-0 Monocryl, skin with continuous subcuticular suture of 4-0 Monocryl with local anesthetic mixt ure infiltrated in the inguinal canal and space above and below Camper's fascia and the skin and subc utaneous tissue with needle. The patient tolerated the procedure well. Dermabond applied.
== END 2017-05-02 16:45 | disposition home or self-care (01) ==
LOC: SDC 09:59
PROVIDERS: ATTEND Specialist
PROC: 0YU60JZ Supplement Left Inguinal Region with Synthetic Substitute, Open Approach (ICD-10-PCS; principal; 2017-05-02)
PROC: 0T9B30Z Drainage of Bladder with Drainage Device, Percutaneous Approach (ICD-10-PCS; 2017-05-02)
DX: K40.20 Bilateral inguinal hernia, without obstruction or gangrene, not specified as recurrent (principal); R35.1 Nocturia; E11.9 Type 2 diabetes mellitus without complications; I10 Essential (primary) hypertension; I25.10 Atherosclerotic heart disease of native coronary artery without angina pectoris; Z79.84 Long term (current) use of oral hypoglycemic drugs; Z79.82 Long term (current) use of aspirin; Z79.899 Other long term (current) drug therapy; Z95.810 Presence of automatic (implantable) cardiac defibrillator; Z95.1 Presence of aortocoronary bypass graft; Z90.49 Acquired absence of other specified parts of digestive tract; Z98.890 Other specified postprocedural states
CPT/HCPCS: 49505; 51701; 81001; 82962; 87086; C1781; 36416; J0131; J1885; J2001; J2405; J2704; J3010; S0020

== ENCOUNTER → 2018-04-16 | Day surgery (SDC) | payer MEDICARE ==
[2018-04-13 11:05] VITALS: BMI 24.0
[~2018-04-16] MED LIST: CEFAZOLIN 1 GM VIAL ONE; CEFAZOLIN 2 GM/50 ML BAG ONE; Fentanyl 100 MCG/2 ML VIAL ONE; Midazolam HCl 2 mg/2 ml Vial ONE; PROPOFOL 200 MG/20 ML VIAL ONE; PROPOFOL 40 ML ONE
[2018-04-16 11:39] LABS: #Eosinphils 0.1 thou/uL (0.0-0.7); #Lymphocytes 1.5 thou/uL (1.20-3.40); #Monocytes 0.5 thou/uL (0.11-0.59); #Neutrophils 3.9 thou/uL (1.40-6.50); %Basophils 0.3 % (0.0-1.0); %Eosinophils 2.4 % (0.0-10.0); %Lymphocytes 24.5 % (21.0-51.0); %Monocytes 8.2 % (0.0-10.0); %Neutrophils 64.7 % (42.0-75.0); Hemoglobin 11.6 g/dL (14.0-18.0); Mean Corpuscular Volume 94.1 fL (78.0-98.0); Mean Platelet Volume 8.4 fL (7.4-10.4); Platelet Count 125 thou/uL (130-400); RBC Distribution Width 12.2 % (11.5-14.5); Red Blood Cell (RBC) Count 3.74 mill/uL (4.70-6.10); White Blood Cell (WBC) Count 6.1 thou/uL (4.8-10.8)
[2018-04-16 11:41] LABS: INR-International Normal Ratio 1.2; Prothrombin Time 15.4 SEC (12.0-14.7)
[2018-04-16 11:43] LABS: Anion Gap 9 mmol/L (10-20); BUN (Urea Nitrogen) 19 mg/dL (8.4-25.7); Calc. Creatinine Clearance 61 mL/min (70-130); Calcium 9.5 mg/dL (7.8-10.44); Carbon Dioxide 27 mmol/L (23-31); Chloride 107 mmol/L (98-107); Estimated GFR-MDRD 65; Glucose 116 mg/dL (83-110); Potassium 4.1 mmol/L (3.5-5.1); Sodium 139 mmol/L (136-145)
--- NOTE | 2018-04-18 21:45 | EKG ---
Test Reason : PREOP Blood Pressure : / mmHG Vent. Rate : 065 BPM Atrial Rate : 065 BPM P-R Int : 238 ms QRS Dur : 098 ms QT Int : 418 ms P-R-T Axes : 057 019 -24 degrees QTc Int : 434 ms Sinus rhythm with 1st degree A-V block T wave abnormality, consider inferior ischemia Abnormal ECG When compared with ECG of 28-APR-2017 19:40, Sinus rhythm has replaced Junctional rhythm ST no longer elevated in Inferior leads T wave inversion no longer evident in Anterior leads Confirmed by Aden ALEX ([id number]) on 04/18/2018 9:44:50 PM Referred By: [facility] Confirmed By:Aden ALEX
== END ==
LOC: CCL 10:01
PROVIDERS: ATTEND Internal Medicine Cardiovascular Disease
PROC: 0JPT0PZ Removal of Cardiac Rhythm Related Device from Trunk Subcutaneous Tissue and Fascia, Open Approach (ICD-10-PCS; principal; 2018-04-16)
PROC: 0JH608Z Insertion of Defibrillator Generator into Chest Subcutaneous Tissue and Fascia, Open Approach (ICD-10-PCS; 2018-04-16)
DX: Z45.02 Encounter for adjustment and management of automatic implantable cardiac defibrillator (principal); I50.22 Chronic systolic (congestive) heart failure; I25.5 Ischemic cardiomyopathy; I25.2 Old myocardial infarction; E11.9 Type 2 diabetes mellitus without complications; I25.10 Atherosclerotic heart disease of native coronary artery without angina pectoris; Z79.82 Long term (current) use of aspirin; Z79.84 Long term (current) use of oral hypoglycemic drugs; Z79.899 Other long term (current) drug therapy
CPT/HCPCS: 33263; 80048; 85025; 85610; 85730; 93005; 93010; 93641; C1721; J0690; J2250; J2704; J3010; J3490

== ENCOUNTER 2019-03-25 17:26 | Observation (INO) | payer MEDICARE ==
[2019-03-25 18:46] LABS: Troponin I 0.012 ng/mL (< 0.028)
[2019-03-25] MEDS ORDERED: Ondansetron ODT 4 MG TAB PO PRN (19:58)
[2019-03-25] MEDS ORDERED: Ondansetron PF 4 MG/2 ML Vial IVP PRN (19:58)
[2019-03-25] MEDS ORDERED: HumaLOG 300 UNITS/3 ML VIAL SC PRN ×2 (20:05)
[2019-03-25] MEDS ORDERED: Dextrose 5% in Water 1,000 ML IV PRN (20:05)
[2019-03-25] MEDS ORDERED: Dextrose 50% Abboject 50 ML SYRINGE SLOW IVP PRN (20:05)
--- NOTE | 2019-03-25 21:29 | ULT ---
ULTRASOUND DOPPLER DUPLEX VENOUS BILATERAL LOWER EXTREMITIES: DATE: 03/25/2019 HISTORY: Bilateral lower extremity edema in 79-year-old male TECHNIQUE: Grayscale, color-flow, and spectral analysis, of major veins of bilateral lower extremities. FINDINGS: There is demonstration of blood flow with normal compressibility, of the bilateral common femoral, pr ofunda femoral, greater saphenous, femoral, popliteal, and posterior tibial, veins. IMPRESSION: Negative. No deep venous thrombosis of bilateral lower extremities.
--- NOTE | 2019-03-25 21:50 | HP ---
PRIMARY CARE PHYSICIAN: Dr. Feliciano. CHIEF COMPLAINT: Chest pain. HISTORY OF PRESENT ILLNESS: Mr. Beebe is an 79-year-old gentleman who presents with complaints of left-sided chest pain that started shortly after he woke up this morning. He states he was still in bed when it happened. He states it started on the left lower side of his abdomen extending upward into the left side of his chest, to his shoulder and down his left arm. He states they remained intermittent until he arrived to the emergency department. It would last 4-5 minutes at a time. He was initially seen at [place] [facility] and then when transferred from there to our emergency department here, he was given morphine by EMS and that is when his pain fully resolved. He states it was stabbing in nature, approximately 8/10 in severity. Denies any associated shortness of breath, though he does report being short of breath with exertion at baseline. Denies having any changes with his chronic cough which is usually dry. Denies any sputum or hemoptysis. Has not had any fevers, chills, or sweats. Reports having a fall on Monday when he woke up in the middle of the night to use the restroom. The patient states he did not have his flashlight with him and he lost a step, but did not sustain any major injuries. He did not sustain any head injury. He was able to get up and go back to bed. He normally walks with a cane, motorized scooter, or walker. The patient reports having chronic swelling of the lower extremities with the more swelling in the right than the left. REVIEW OF SYSTEMS: The patient reports having a good appetite. No issues with nausea or vomiting. No abdominal pain or cramping. Reports having normal bowel movements. Denies having any urinary symptoms. All other review of systems negative. The patient is known to have a history of coronary artery disease. He has an AICD in place and has undergone CABG in the past. He underwent cardiac catheterization by Dr. Ochoa in February 2017 and was deemed to be a poor candidate for surgery, though he was found to have diffuse disease and started on Ranexa. The patient was cleared for discharge and recommended conservative medical management at that time. In the emergency department, he underwent an EKG which showed first-degree AV block, heart rate of 64. He was treated with nitroglycerin, and had also been given aspirin at [place]. He underwent laboratory studies including troponin which was normal. PAST MEDICAL HISTORY: 1. Coronary artery disease. 2. Myocardial infarction x1. 3. Type 2 diabetes mellitus. 4. Hyperlipidemia. 5. Hypertension. 6. History of pulmonary disease, asbestosis. PAST SURGICAL HISTORY: 1. Appendectomy. 2. CABG x3 in 2006. 3. Automatic internal cardiac defibrillator placed. SOCIAL HISTORY: The patient lives with his . He is a former smoker and quit in the 1960s. Denies any alcohol consumption. Mobilizes with the use of a walker or a motorized scooter. ALLERGIES: NO KNOWN DRUG ALLERGIES. CURRENT MEDICATIONS: 1. Aspirin 81 mg p.o. daily. 2. Metformin 500 mg p.o. t.i.d. 3. Atorvastatin 80 mg p.o. daily. 4. Carvedilol 3.125 mg p.o. b.i.d. 5. Nitrostat sublingual 0.4 mg q.15 minutes x3 doses for chest pain as needed. PHYSICAL EXAMINATION: GENERAL: The patient appears thin, well developed, and in no acute distress. He is lying comfortably on the stretcher. VITAL SIGNS: Temperature 97.7, pulse is 63, blood pressure 141/86, respirations 18, O2 saturation 100% on room air. HEENT: Normocephalic and atraumatic. Pupils are equal, round, and reactive to light. Sclerae without icterus. Oropharynx is clear. NECK: Supple without lymphadenopathy. LUNGS: Clear to auscultation bilaterally without any wheezes, rales, or rhonchi. CARDIAC: Regular rate and rhythm. AICD in place on the left side of his chest with no swelling, erythema, or tenderness. The patient without any reproducible chest pain on palpation of his chest wall. No deformities. No bruising. No swelling or skin changes. ABDOMEN: Soft, nontender, nondistended. Normoactive bowel sounds present. No guarding or rigidity. No renal angle tenderness. EXTREMITIES: Notable for trace edema in the left lower extremity and +1 pitting edema in the right lower extremity. He reports having this at baseline and the increased swelling on the right side he states is attributed to having a "bad knee." NEUROLOGIC: Alert and oriented x3. No neuro deficits on exam. SKIN: Warm and dry. LABORATORY DATA: White blood count 7.7, hemoglobin 10.9, platelets 113, neutrophils 70%. Sodium 136, potassium 4.3, BUN 27, creatinine 1.50, GFR 45 (appears to be at his baseline). Calcium 8.8. LFTs unremarkable. Troponin negative x2. BNP 225.3. IMAGING DATA: Chest x-ray showed stable atherosclerotic calcification of the aortic arch with mild diffuse, increased linear and interstitial density with pulmonary hyperinflation which appear stable when compared to prior chest x-ray done in February 2017. IMPRESSION AND PLAN: Mr. Beebe is a pleasant 79-year-old gentleman who presents with left-sided chest pain who is being referred for management of the following. 1. Acute coronary syndrome rule out. The patient states the pain has fully resolved since he was given morphine by EMS en route to our ED from [facility]. Given the extensive cardiac history, we will place consultation with Cardiology. Continue to trend troponins. Of note, EKG done in the emergency department showed normal sinus rhythm with no ST changes or T-wave abnormalities. The patient remains asymptomatic at present. We will check lipid panel with morning labs. 2. Hypertension. Monitor blood pressure and resume home medications once verified. 3. Diabetes mellitus. We will hold metformin and cover with insulin sliding scale. Monitor blood glucose. 4. Hyperlipidemia. Resume home medications once verified. 5. Gastrointestinal prophylaxis. Famotidine 20 mg b.i.d. IV. 6. Deep venous thrombosis prophylaxis. We will hold on mechanical SCDs. The patient does have lower extremity swelling. Therefore, we will obtain venous Dopplers. This seems to be chronic per patient. 7. Recurrent mechanical falls. We will place consultation with PT, OT. The patient denies having any associated lightheadedness or dizziness. He states this has happened when he got out of bed and tried to get to the bathroom without a flashlight. We will, however, go ahead and add orthostatic blood pressures, routine vital signs. 8. Code status. The patient states EMS discussed DNAR status and he thought he may have signed a DNAR. We will place a consultation to Palliative Care for further discussion regarding advanced directives. Surrogate decision maker, he states are his daughter, Dr. Zhuothy Rubi and his son, Antonio Beebe, Shay. The patient's case was discussed with Dr. Hi, who agrees upon the care as described above. Job ID: [id number] [facility]
[2019-03-25 21:59] LABS: Troponin I 0.019 ng/mL (< 0.028)
[2019-03-26 00:50] LABS: Troponin I 0.015 ng/mL (< 0.028)
[2019-03-26 03:29] LABS: Hemoglobin 11.5 g/dL (14.0-18.0); Mean Corpuscular HGB CONC 34.1 g/dL (32.0-36.0); Mean Corpuscular Hemoglobin 32.1 pg (27.0-31.0); Mean Corpuscular Volume 94.2 fL (78.0-98.0); Mean Platelet Volume 8.1 fL (7.4-10.4); Platelet Count 103 thou/uL (130-400); Red Blood Cell (RBC) Count 3.58 mill/uL (4.70-6.10); White Blood Cell (WBC) Count 7.8 thou/uL (4.8-10.8)
[2019-03-26 03:45] LABS: #Eosinphils 0.1 thou/uL (0.0-0.7); #Lymphocytes 1.2 thou/uL (1.20-3.40); #Monocytes 0.6 thou/uL (0.11-0.59); #Neutrophils 5.8 thou/uL (1.40-6.50); %Basophils 0.5 % (0.0-1.0); %Eosinophils 0.9 % (0.0-10.0); %Lymphocytes 15.5 % (21.0-51.0); %Monocytes 8.3 % (0.0-10.0); %Neutrophils 74.8 % (42.0-75.0); MDiff Complete? YES; Platelet Morphology Comment Appears Decreased
[2019-03-26 03:56] LABS: Anion Gap 11 mmol/L (10-20); BUN (Urea Nitrogen) 21 mg/dL (8.4-25.7); Calc. Creatinine Clearance 0 mL/min (70-130); Carbon Dioxide 23 mmol/L (23-31); Cardiac Risk 2.8 (Less than 4.5); Chloride 105 mmol/L (98-107); Cholesterol 87 mg/dl (< 200 Desired); Estimated GFR-MDRD 59; Glucose 93 mg/dL (83-110); HDL Cholesterol 31 mg/dL (>60 Neg Risk); LDL Cholesterol, Calculated 46 mg/dL; Potassium 4.2 mmol/L (3.5-5.1); Sodium 135 mmol/L (136-145); Triglycerides 50 mg/dL (Less than 150)
[2019-03-26 05:16] VITALS: BMI 23.3
[2019-03-26] MEDS: Famotidine/PF 20 mg/2ml Vial SLOW IVP SCH ×3 (05:18→19:41)
[2019-03-26] MEDS ORDERED: Midodrine HCl 5 MG TAB PO SCH (09:15)
[2019-03-26] MEDS ORDERED: Ketorolac Tromethamine 30 MG/ML VIAL IVP SCH (10:45)
[2019-03-26] MEDS ORDERED: Aspirin 81 mg Enteric Coated Tablet PO SCH (10:45)
--- NOTE | 2019-03-26 11:31 | CON ---
DATE OF CONSULTATION: HISTORY OF PRESENT ILLNESS: The patient is an 79-year-old gentleman with a history of ischemic cardiomyopathy, who presented after having a fall and developed left-sided chest discomfort. The patient has a long history of ischemic cardiomyopathy. In 2006, he underwent cardiac catheterization and found to have a severe decrease in left ventricular systolic function. He was found to have severe coronary artery disease. He subsequently underwent coronary artery bypass surgery, with a DURAN placed to LAD, saphenous vein graft to first and second obtuse marginal branch. The patient has continued on medical therapy. He has had placement of automatic implantable cardiac defibrillator. The patient underwent a repeat catheterization in 2018. He was found to have a small atretic left internal mammary artery graft, a patent OM graft, and 1 occluded graft. The patient has been on medical therapy. He was in his usual state of health when he had a fall, he tripped. He did not lose consciousness. The patient subsequently developed left-sided abdominal pain that radiated into his chest. This has been intermittent for the past several days. He states it has clearly made worse with movement and taking a deep breathe. PAST MEDICAL HISTORY: 1. Coronary artery disease. 2. History of cardiomyopathy. 3. Hypertension. 4. Dyslipidemia. 5. Diabetes mellitus. PAST SURGICAL HISTORY: 1. Appendectomy. 2. Hernia surgery. 3. Coronary artery bypass graft surgery. SOCIAL HISTORY: Nonsmoker. FAMILY HISTORY: Positive family history of coronary artery disease. ALLERGIES: NO KNOWN DRUG ALLERGIES. MEDICATIONS: On admission include; 1. Lipitor 80 at bedtime. 2. Aspirin 81 daily. 3. Coreg 3.125 b.i.d. REVIEW OF SYSTEMS: Ten-point system otherwise unremarkable. PHYSICAL EXAMINATION: GENERAL: Well-developed gentleman, in no acute distress with a blood pressure of 170/79. NECK: No jugular venous distention. LUNGS: Clear to auscultation. HEART: Regular rate and rhythm. Normal S1, S2 with a 1/6 systolic murmur. ABDOMEN: Distended. EXTREMITIES: Showed no edema. VASCULAR: Radial pulses are 2+. LABORATORY RESULTS: Sodium 135, potassium 4.2, chloride 105, bicarbonate 23, BUN 21, creatinine 1.1, glucose 59. White blood cell count 7.8, hemoglobin 11.5, hematocrit 33.7, platelets 103. His EKG revealed normal sinus rhythm, nonspecific T-wave abnormality. IMPRESSION AND PLAN: 1. Musculoskeletal discomfort. 2. Status post fall. 3. History of coronary artery bypass graft surgery. 4. History of ischemic cardiomyopathy. 5. History of AICD placement. This gentleman presents after a fall. He has probable musculoskeletal discomfort. We would recommend treating the patient with Toradol. From a cardiac standpoint, II will also add Motrin. We will follow this patient with you throughout his hospitalization. Job ID: [id number] [facility]
--- NOTE | 2019-03-26 12:51 | PDOC.HOSPP ---
- Subjective Encounter Date: 03/26/19 Encounter Time: 08:47 Subjective: 79 y/o male with CAD s/p CABG, DM, HTN, and others admitted with left sided chest pain. patient reported a recent fall which he attributed to missing his steps in the dark though he admitted to orthostatic dizziness and recurrent falls. Had an episode of orthostatic dizziness associated with diaphoresis earlier. Orthostatic vitals very positive with bp dropping from 160 lying down to 90 on standing. - Objective Vital Signs & Weight: Vital Signs (12 hours) Temp Pulse Pulse Pulse Pulse Pulse Resp 03/26/19 11:24 03/26/19 10:50 03/26/19 08:49 65 70 70 80 03/26/19 07:47 97.5 F L 86 16 03/26/19 05:34 71 03/26/19 04:58 97.6 F 63 18 BP BP BP BP BP BP BP 03/26/19 11:24 121/58 L 90/53 L 03/26/19 10:50 128/65 100/59 L 03/26/19 08:49 164/77 H 134/65 95/54 L 167/78 H 03/26/19 07:47 137/70 03/26/19 05:34 118/59 L 128/60 03/26/19 04:58 BP Pulse Ox 03/26/19 11:24 169/74 H 03/26/19 10:50 142/86 H 03/26/19 08:49 03/26/19 07:47 96 03/26/19 05:34 165/74 H 03/26/19 04:58 170/79 H 100 Weight Weight 172 lb 1.6 oz Result Diagrams: 03/26/19 03:12 03/26/19 03:12 Additional Labs: Accuchecks 03/26/19 03/26/19 10:41 05:06 POC Glucose 84 89 Hospitalist ROS - Medication Medications: Active Medications Generic Name Dose Route Start Last Admin Trade Name Freq PRN Reason Stop Dose Admin Famotidine 20 mg 03/25/19 21:00 03/26/19 08:17 Pepcid SLOW IVP 20 mg Q12HR DEISI Administration - Exam General Appearance: awake alert Eye: anicteric sclera ENT: normocephalic atraumatic Neck: supple, no JVD Heart: RRR Respiratory: no wheezes, no ronchi, normal chest expansion, no tachypnea Respiratory - other findings: Mild bilateral anterior chest tenderness. Gastrointestinal: soft, non-tender, non-distended, normal bowel sounds Extremities: 1+ LE edema Neurological: cranial nerve grossly intact Psychiatric: A&O x 3 Hosp A/P (1) Atypical chest pain Code(s): R07.89 - OTHER CHEST PAIN Status: Acute (2) AICD (automatic cardioverter/defibrillator) present Code(s): Z95.810 - PRESENCE OF AUTOMATIC (IMPLANTABLE) CARDIAC DEFIBRILLATOR Status: Chronic (3) Ischemic cardiomyopathy Code(s): I25.5 - ISCHEMIC CARDIOMYOPATHY Status: Chronic (4) Acute kidney failure Status: Resolved (5) Orthostatic hypotension Code(s): I95.1 - ORTHOSTATIC HYPOTENSION Status: Acute (6) Recurrent falls Code(s): R29.6 - REPEATED FALLS Status: Acute - Plan Start midodrine 5 mg tid. Analgesic as needed. Hold antihypertensives Pt/Ot eval and treat. monitor orthostatic vitals. slinding scale insulin.
[2019-03-26] MEDS ORDERED: Nitroglycerin 0.4 MG TAB (25 Tab Bottle) SL PRN (12:59)
[2019-03-26] MEDS ORDERED: Acetaminophen 325 MG TAB PO PRN (13:02)
[2019-03-26] MEDS: Midodrine HCl 5 MG TAB PO SCH ×2 (14:28→19:41)
[2019-03-26] MEDS: Ibuprofen 600 MG TAB PO SCH ×2 (14:28→19:41)
[2019-03-26] MEDS ORDERED: Carvedilol 3.125 MG TAB PO SCH (21:00)
[2019-03-26] MEDS ORDERED: Atorvastatin Calcium 40 MG TAB PO SCH ×2 (21:00)
[2019-03-27 05:44] LABS: Anion Gap 9 mmol/L (10-20); BUN (Urea Nitrogen) 24 mg/dL (8.4-25.7); Calc. Creatinine Clearance 56 mL/min (70-130); Calcium 8.9 mg/dL (7.8-10.44); Carbon Dioxide 25 mmol/L (23-31); Chloride 104 mmol/L (98-107); Estimated GFR-MDRD 62; Glucose 107 mg/dL (83-110); Sodium 134 mmol/L (136-145)
[2019-03-27 08:26] VITALS: BP 124/62
[2019-03-27 08:27] VITALS: TEMP 97.5
[2019-03-27] MEDS ORDERED: Aspirin 81 mg Enteric Coated Tablet PO SCH ×3 (09:00)
[2019-03-27] MEDS ORDERED: Midodrine HCl 5 MG TAB PO SCH (09:00)
[2019-03-27] MEDS: Ibuprofen 600 MG TAB PO SCH (09:10)
[2019-03-27] MEDS: Midodrine HCl 5 MG TAB PO SCH (09:10)
[2019-03-27] MEDS: Famotidine/PF 20 mg/2ml Vial SLOW IVP SCH (09:10)
--- NOTE | 2019-03-27 13:35 | DIS ---
DATE OF ADMISSION: 03/25/2019 DATE OF DISCHARGE: 03/27/2019 PRIMARY CARE PHYSICIAN: Karl Feliciano MD DISCHARGE DIAGNOSES: 1. Atypical chest pain. 2. Musculoskeletal chest pain. 3. Ischemic cardiomyopathy. 4. Acute kidney injury. 5. Orthostatic hypotension. 6. Recurrent falls. 7. History of hypertension. CONSULTS: Cardiology. HOSPITAL COURSE: An 79-year-old male patient with known history of coronary artery disease, status post CABG; diabetes; hypertension; and others; admitted with left-sided chest pain. The patient reportedly had a recent fall which he attributed to missing his steps in the deck, though he admitted orthostatic dizziness and recurrent falls. While in the hospital, the patient had an episode of orthostatic dizziness associated with diaphoresis. Orthostatic vitals were positive with blood pressure dropping from 160 systolic on lying down to 90 on standing. The patient was started on midodrine, while antihypertensive carvedilol was discontinued and midodrine was optimized to 10 mg p.o. t.i.d. at discharge. Cardiology saw the patient and given reproducible tenderness on the left side associated with a history of pain, he was felt to have musculoskeletal chest pain. However, acute myocardial infarction was ruled out with serial troponin. The patient was treated with physical therapy and analgesic with improvement and was subsequently discharged home. Of note, the patient, on presentation, had elevated creatinine of 1.5 and following treatment with IV fluid, it trended down to 1.1 on discharge. PHYSICAL EXAMINATION: VITAL SIGNS: Temperature 97.5, pulse 75, respiratory rate 14, SpO2 of 98% on room air, blood pressure 112 sitting, 93/50 standing, and 124/62 lying down. Of note, there was no orthostatic dizziness. GENERAL: Elderly male, in no distress. Afebrile. Anicteric. Acyanotic. HEENT: Normocephalic, atraumatic. Oral mucosa is moist. CARDIOVASCULAR: Regular rhythm and rate with normal heart sounds 1 and 2. RESPIRATORY: Fair air entry bilaterally with no obvious crackle, rhonchi, or use of accessory muscles. Mild left-sided chest tenderness noted. GI: Full, soft, nontender, nondistended with normal bowel sounds. EXTREMITIES: Trace bilateral leg edema noted. NEUROLOGIC: Conscious, alert, oriented x3 with appropriate mental status. DISCHARGE DISPOSITION: Home. DISCHARGE CONDITION: Improved. DISCHARGE MEDICATIONS: 1. Sublingual nitroglycerin 0.4 mg p.r.n. for chest pain. 2. Aspirin 81 mg p.o. daily. 3. Lipitor 80 mg p.o. daily at bedtime. 4. Metformin 500 mg p.o. daily. 5. Acetaminophen 650 mg q.6 p.r.n. for pain. 6. Midodrine 10 mg p.o. t.i.d. DISCHARGE FOLLOWUP: 1. With PCP in [address] Ochoa in 3 to 4 weeks. Job ID: [id number]
[2019-03-27] MEDS ORDERED: Atorvastatin Calcium 40 MG TAB PO SCH (21:00)
== END 2019-03-27 11:10 | disposition home or self-care (01) ==
LOC: ERS 17:26 → 2SW 18:39
PROVIDERS: ADMIT Internal Medicine; ATTEND Internal Medicine
DX: R07.89 Other chest pain (principal); I25.5 Ischemic cardiomyopathy; N17.9 Acute kidney failure, unspecified; I95.1 Orthostatic hypotension; R29.6 Repeated falls; I10 Essential (primary) hypertension; I25.10 Atherosclerotic heart disease of native coronary artery without angina pectoris; I25.2 Old myocardial infarction; E78.5 Hyperlipidemia, unspecified; E11.9 Type 2 diabetes mellitus without complications; M79.89 Other specified soft tissue disorders; Z66 Do not resuscitate; Z79.82 Long term (current) use of aspirin; Z79.84 Long term (current) use of oral hypoglycemic drugs; Z79.899 Other long term (current) drug therapy; Z95.1 Presence of aortocoronary bypass graft; Z95.810 Presence of automatic (implantable) cardiac defibrillator
CPT/HCPCS: 80048 ×2; 80061; 82962; 83735; 84443; 84484 ×2; 85025; 93005; 93970; 96374; 96375; 96376 ×2; 97139 ×3; 97530; 99285; 99406; G0378 ×4; 36415; 36416; J1885; S0028

== ENCOUNTER 2019-07-08 23:52 | Emergency (ER) | payer MEDICARE | END 2019-07-09 01:49 | disposition home or self-care (01) | LOC: ERS 23:52 | DX: R07.9 Chest pain, unspecified (principal); G89.29 Other chronic pain; R04.0 Epistaxis; I25.10 Atherosclerotic heart disease of native coronary artery without angina pectoris; I25.2 Old myocardial infarction; E11.9 Type 2 diabetes mellitus without complications; E78.5 Hyperlipidemia, unspecified; E78.00 Pure hypercholesterolemia, unspecified; Z87.891 Personal history of nicotine dependence; Z79.84 Long term (current) use of oral hypoglycemic drugs; Z79.82 Long term (current) use of aspirin; Z79.899 Other long term (current) drug therapy | CPT/HCPCS: 36415; 84484; 93005 ==

== ENCOUNTER 2019-11-05 20:41 | Emergency (ER) | payer MEDICARE ==
[2019-11-05] MEDS ORDERED: traMADol HCl 50 MG TAB ONE (21:47)
[2019-11-05] MEDS ORDERED: Ondansetron ODT 4 MG TAB ONE (21:47)
--- NOTE | 2019-11-06 07:03 | ULT ---
RIGHT LOWER EXTREMITY VENOUS DUPLEX EXAM: HISTORY: Right leg pain and swelling. FINDINGS: Real-time color Doppler evaluation of the right lower extremity was performed from groin to calf. Th is includes evaluation of common femoral, superficial and profunda femoral, saphenous, popliteal, and posterior tibial veins. This shows a patent deep venous system. There is normal compressibility an d augmentation. There is no evidence of DVT. There is considerable edema change seen within the edgar f and ankle region. There is a complex cystic collection adjacent to the medial side of the knee whi ch may represent a Raymundo's cyst. The exact location of this is difficult to determine. IMPRESSION: No evidence of deep vein thrombosis of the right lower extremity. POS: [facility]
== END 2019-11-06 00:54 | disposition home or self-care (01) ==
LOC: ERS 20:41
DX: R60.0 Localized edema (principal); I25.10 Atherosclerotic heart disease of native coronary artery without angina pectoris; I25.2 Old myocardial infarction; E11.9 Type 2 diabetes mellitus without complications; E78.5 Hyperlipidemia, unspecified; I10 Essential (primary) hypertension; Z87.891 Personal history of nicotine dependence; Z79.82 Long term (current) use of aspirin; Z79.84 Long term (current) use of oral hypoglycemic drugs; Z79.899 Other long term (current) drug therapy
CPT/HCPCS: Q0162

== ENCOUNTER 2019-11-09 07:32 | Emergency (ER) | payer MEDICARE ==
[2019-11-09 08:31] LABS: Hemoglobin 13.6 g/dL (14.0-18.0); Mean Corpuscular HGB CONC 34.5 g/dL (32.0-36.0); Mean Corpuscular Hemoglobin 32.7 pg (27.0-31.0); Mean Corpuscular Volume 94.9 fL (78.0-98.0); Mean Platelet Volume 9.3 fL (7.4-10.4); Platelet Count 105 thou/uL (130-400); RBC Distribution Width 12.3 % (11.5-14.5); Red Blood Cell (RBC) Count 4.17 mill/uL (4.70-6.10); White Blood Cell (WBC) Count 6.9 thou/uL (4.8-10.8)
[2019-11-09 08:37] LABS: ALT (SGPT) 15 U/L (8-55); AST (SGOT) 22 U/L (5-34); Alkaline Phosphatase 88 U/L (40-110); Anion Gap 12 mmol/L (10-20); BUN (Urea Nitrogen) 14 mg/dL (8.4-25.7); Bilirubin, Total 1.1 mg/dL (0.2-1.2); Calc. Creatinine Clearance 0 mL/min (70-130); Calcium 9.8 mg/dL (7.8-10.44); Carbon Dioxide 26 mmol/L (23-31); Chloride 104 mmol/L (98-107); Estimated GFR-MDRD 57; Globulin 3.4 g/dL (2.4-3.5); Glucose 103 mg/dL (83-110); Protein, Total 7.4 g/dL (5.8-8.1); Sodium 138 mmol/L (136-145)
[2019-11-09 08:38] LABS: #Basophils 0.1 thou/uL (0.0-0.2); #Eosinphils 0.1 thou/uL (0.0-0.7); #Lymphocytes 1.4 thou/uL (1.20-3.40); #Monocytes 0.6 thou/uL (0.11-0.59); #Neutrophils 4.9 thou/uL (1.40-6.50); %Basophils 0.8 % (0.0-1.0); %Eosinophils 1.2 % (0.0-10.0); %Lymphocytes 19.9 % (21.0-51.0); %Neutrophils 70.1 % (42.0-75.0); Burr Cells SLIGHT = 2-5 cells (100X) (0-1/hpf); MDiff Complete? YES; Platelet Morphology Comment Appears Decreased
[2019-11-09] MEDS ORDERED: Ketorolac Tromethamine 30 MG/ML VIAL ONE (08:39)
[2019-11-09] MEDS ORDERED: Diazepam 10 MG/2 ML SYRINGE ONE (08:41)
[2019-11-09] MEDS ORDERED: Fentanyl 100 MCG/2 ML VIAL ONE (08:41)
[2019-11-09 08:56] LABS: Bilirubin Negative (Negative); Blood, Urine Negative (Negative); Clarity Clear (Clear); Glucose, Urine (Dipstick) Normal (Negative); Leukocyte Negative Leu/uL (Negative); Nitrite Negative (Negative); Protein, Urine (Dipstick) Negative (Neg-Trace); Urobilinogen Normal mg/dL (Less than 2)
--- NOTE | 2019-11-09 09:46 | CT ---
CT ABDOMEN AND PELVIS WITHOUT IV CONTRAST CT LOWER THORACIC AND LUMBAR SPINE WITH REFORMATS: INDICATION: Abdominal pain. Back pain with difficulty walking. COMPARISON: Comparison is made to a prior CT of the abdomen and pelvis from 2016. FINDINGS: Images through the lung bases show hazy atelectasis in the lung bases. There is evidence of mild vas cular congestion and cardiomegaly. There is bilateral calcified plaquing over both diaphragms and po sterior lung bases. This would suggest prior asbestos exposure. Images through the upper abdomen show a distended gallbladder. No significant pericholecystic edema. No evidence of biliary duct dilatation. Gallbladder may not be apparent on CT. The liver, spleen, and pancreas appear unremarkable. Stomach unremarkable. Adrenal gland is normal. Kidneys show mild perinephric stranding which his similar to 2016. There i s no hydronephrosis. There are tiny nonobstructing calculi in the upper collecting structures of bot h kidneys. Ureters are normal. Small bowel loops are normal caliber. Appendix is not identified; however, there is no evidence of a ppendicitis. The colon is unremarkable. Aorta is calcified without evidence of aneurysm. Atherosclerotic calcifications involve both proxima l renal arteries and this may produce renal artery stenosis. Images through the pelvis show prostatic hypertrophy which impinges on the floor of the bladder. The urinary bladder is mildly distended and appears unremarkable. IMPRESSION: 1. Distended gallbladder without biliary duct dilatation. Recommend gallbladder ultrasound. 2. Tiny nonobstructing calculi in the upper collecting structures of both kidneys. 3. Prostatic hypertrophy. 4. No acute intraabdominal process. CT LOWER THORACIC AND LUMBAR SPINE WITH SAGITTAL AND CORONAL RECONSTRUCTION: The visualized thoracic and lumbar vertebrae maintain normal height and alignment. Degenerative disk changes are seen at multiple levels. Vacuum phenomenon noted at the L1-2 and L2-3 levels. Mild dis k bulge at L1-2 and L2-3 is seen resulting in mild central canal stenosis. Disk bulge at L3-4 result s in mild to moderate central canal stenosis. Disk bulge at L4-5 with facet hypertrophy results in moderate central canal stenosis. No significant central canal stenosis at L5-S1. IMPRESSION: Degenerative disk changes. Disk bulges at all levels of the lumbar spine resulting in moderate centr al canal stenosis as described. POS: [facility]
--- NOTE | 2019-11-09 11:11 | ULT ---
GALLBLADDER ULTRASOUND: INDICATION: Exam performed as followup to CT which revealed a distended gallbladder. There is abdominal pain. FINDINGS: The gallbladder is distended and the gallbladder wall is upper normal thickness. There is no evidenc e of gallstones identified. The common bile duct is normal caliber. The visualized liver and right kidney appear unremarkable. The pancreas is obscured. The technologist describes a mildly positive Anne's sign. IMPRESSION: Distended gallbladder with gallbladder wall upper normal thickness. No evidence of gallstones. Acal culus cholecystitis is a consideration. An elective hepatobiliary scan could be performed to assess gallbladder function. POS: [facility]
--- NOTE | 2019-11-10 10:34 | EKG ---
Test Reason : Blood Pressure : / mmHG Vent. Rate : 072 BPM Atrial Rate : 072 BPM P-R Int : 212 ms QRS Dur : 090 ms QT Int : 388 ms P-R-T Axes : 012 020 263 degrees QTc Int : 424 ms Sinus rhythm with sinus arrhythmia with 1st degree A-V block Abnormal ECG Similar to 07/09/2019 Confirmed by KIANA GUERRA DO ([id number]), television news video editor CHRISTIE MANUEL ([id number]) on 11/10/2019 10:34:04 AM Referred By: Confirmed By:KIANA GUERRA DO
== END 2019-11-09 11:40 | disposition home or self-care (01) ==
LOC: ERS 07:32
DX: M54.16 Radiculopathy, lumbar region (principal); M79.89 Other specified soft tissue disorders; R60.0 Localized edema; E11.9 Type 2 diabetes mellitus without complications; I25.10 Atherosclerotic heart disease of native coronary artery without angina pectoris; I25.2 Old myocardial infarction; E78.00 Pure hypercholesterolemia, unspecified; E78.5 Hyperlipidemia, unspecified; I10 Essential (primary) hypertension; Z87.891 Personal history of nicotine dependence; Z79.82 Long term (current) use of aspirin; Z79.84 Long term (current) use of oral hypoglycemic drugs; Z79.899 Other long term (current) drug therapy
CPT/HCPCS: 74176; 76705; 80053; 81003; 85025; 93005; 96374; 96375; J1885; J3010; J3360

== ENCOUNTER 2019-11-10 23:15 | Emergency (ER) | payer MEDICARE ==
[2019-11-10] MEDS ORDERED: Diazepam 10 MG/2 ML SYRINGE ONE (23:55)
[2019-11-10] MEDS ORDERED: Ketorolac Tromethamine 30 MG/ML VIAL ONE (23:55)
[2019-11-10] MEDS ORDERED: Fentanyl 100 MCG/2 ML VIAL ONE (23:55)
== END 2019-11-11 01:07 | disposition home or self-care (01) ==
LOC: ERS 23:15
DX: G62.9 Polyneuropathy, unspecified (principal); I25.2 Old myocardial infarction; E11.9 Type 2 diabetes mellitus without complications; E78.5 Hyperlipidemia, unspecified; Z87.891 Personal history of nicotine dependence; Z79.899 Other long term (current) drug therapy; Z79.84 Long term (current) use of oral hypoglycemic drugs
CPT/HCPCS: 96372; 99283; J1885; J3010; J3360

== ENCOUNTER 2019-11-20 05:15 | Observation (INO) | payer MEDICARE ==
[2019-11-20] MEDS ORDERED: Fentanyl 100 MCG/2 ML VIAL ONE (05:55)
[2019-11-20 06:42] LABS: #Eosinphils 0.2 thou/uL (0.0-0.7); #Lymphocytes 1.3 thou/uL (1.20-3.40); #Monocytes 0.8 thou/uL (0.11-0.59); #Neutrophils 6.9 thou/uL (1.40-6.50); %Basophils 0.2 % (0.0-1.0); %Eosinophils 2.3 % (0.0-10.0); %Lymphocytes 14.1 % (21.0-51.0); %Neutrophils 74.5 % (42.0-75.0); Hemoglobin 14.5 g/dL (14.0-18.0); Mean Corpuscular HGB CONC 34.1 g/dL (32.0-36.0); Mean Corpuscular Hemoglobin 32.8 pg (27.0-31.0); Mean Platelet Volume 9.5 fL (7.4-10.4); Platelet Count 88 thou/uL (130-400); RBC Distribution Width 12.4 % (11.5-14.5); Red Blood Cell (RBC) Count 4.42 mill/uL (4.70-6.10); White Blood Cell (WBC) Count 9.2 thou/uL (4.8-10.8)
[2019-11-20] MEDS ORDERED: Aspirin Chewable 81 MG TAB ONE (06:54)
[2019-11-20] MEDS ORDERED: Aspirin 325 MG TAB ONE (06:56)
--- NOTE | 2019-11-20 07:40 | CT ---
Exam: CTA chest with 3-D rendering: CTA abdomen with 3-D rendering: HISTORY: Coronary disease. Chest pain. COMPARISON: None TECHNIQUE: CT angiogram of the thoracic and abdominal aorta performed in the axial plane. Three-dimen sional reformatted images are submitted for interpretation. FINDINGS: Chest CT: Mediastinum: No mass, lymphadenopathy or hematoma Heart: Normal heart size. No significant pericardial fluid. Coronary arteries: There is atherosclerosis Trachea and central bronchi: Patent Pleural spaces: No pleural effusion. Calcified plaques along the pleural margin. Correlate for previo us asbestos exposure Right lung: Chronic changes due to scar and atelectasis in the right lower lobe. No masses or consoli dation. 0.4 cm right subpleural lymph node along the major fissure Left lung: Chronic changes suggesting scar and atelectasis in the left lower lobe. No masses or conso lidation. Pneumothorax: None Abdomen CT: Gallbladder: Mild wall enhancement. Portal vein: Patent Solid organs: Appropriate arterial phase enhancement of the liver, spleen, pancreas and adrenal gland s Kidneys: Symmetric enhancement. No obstructive uropathy. Nonobstructing calculus in the right renal p denys. Mesentery: No mass, lymphadenopathy, free air or free fluid Alimentary canal: Limited evaluation by the lack of oral contrast. No evidence of a bowel obstruction . Normal ileocecal junction. Osseous structures: No lytic or blastic lesions. There is diffuse bone demineralization. CT ANGIOGRAM: Aorta: The root of the aorta, ascending thoracic aorta, aortic arch, descending thoracic aorta and ab dominal aorta do not demonstrate any aneurysm or dissection. There is scattered calcified and noncalcified plaque. Celiac artery: Appropriate enhancement and luminal diameter Superior mesenteric artery: Appropriate enhancement and luminal diameter Renal arteries: Solitary left and right renal arteries with appropriate enhancement and luminal diame ter Inferior mesenteric artery: Appropriate enhancement and luminal diameter Aortic bifurcation: Appropriate enhancement and luminal diameter. Iliac arteries have appropriate enh ancement and luminal diameter Central pulmonary arteries: Appropriate enhancement and luminal diameter. IMPRESSION: 1. No CT evidence of aortic aneurysm or dissection 2. Mild enhancement of the gallbladder wall. Patient did have recent gallbladder ultrasound which dem onstrated gallbladder wall thickening. If there is concern for acalculous cholecystitis, consider HIDA scan. 3. Calcification of the pleural margin. Correlate for previous asbestos exposure.
[2019-11-20 07:44] LABS: ALT (SGPT) 21 U/L (8-55); AST (SGOT) 24 U/L (5-34); Albumin 3.3 g/dL (3.4-4.8); Alkaline Phosphatase 80 U/L (40-110); Anion Gap 15 mmol/L (10-20); BUN (Urea Nitrogen) 18 mg/dL (8.4-25.7); Bilirubin, Total 0.8 mg/dL (0.2-1.2); Calc. Creatinine Clearance 0 mL/min (70-130); Calcium 9.1 mg/dL (7.8-10.44); Carbon Dioxide 19 mmol/L (23-31); Chloride 107 mmol/L (98-107); Estimated GFR-MDRD 78; Globulin 3.3 g/dL (2.4-3.5); Glucose 152 mg/dL (83-110); Potassium 5.8 mmol/L (3.5-5.1); Protein, Total 6.6 g/dL (5.8-8.1); Sodium 135 mmol/L (136-145)
--- NOTE | 2019-11-20 08:12 | RAD ---
Exam: Chest one view HISTORY:Chest pain Comparison: 07/08/2019 FINDINGS: Pacing device: Stable left-sided defibrillator. Cardiac silhouette:Normal cardiac silhouette. Stable sternotomy wires. Aorta: Atherosclerosis Pulmonary vessels: Normal Costophrenic angles: Clear LUNGS: No masses or consolidation. Pneumothorax: None Osseous abnormalities: None IMPRESSION: No acute cardiopulmonary process.
[2019-11-20] MEDS ORDERED: Iopamidol 370 76% 100 ML VIAL ONE (09:42)
[2019-11-20] MEDS ORDERED: Acetaminophen 325 MG TAB PO PRN (10:10)
[2019-11-20] MEDS ORDERED: Ondansetron PF 4 MG/2 ML Vial IVP PRN ×2 (10:10→11:52)
[2019-11-20] MEDS ORDERED: Ondansetron ODT 4 MG TAB PO PRN ×2 (10:10→11:52)
[2019-11-20 10:42] VITALS: BMI 23.6
[2019-11-20 10:55] LABS: Troponin I 0.014 ng/mL (< 0.028)
[2019-11-20] MEDS ORDERED: Dextrose 50% Abboject 50 ML SYRINGE SLOW IVP PRN (11:52)
[2019-11-20] MEDS ORDERED: hydrALAZINE 20 MG/ML VIAL SLOW IVP PRN (11:52)
[2019-11-20] MEDS ORDERED: HumaLOG 300 UNITS/3 ML VIAL SC PRN ×2 (11:52)
[2019-11-20] MEDS ORDERED: Nitroglycerin 0.4 MG TAB (25 Tab Bottle) PO PRN (11:52)
[2019-11-20] MEDS ORDERED: Dextrose 5% in Water 1,000 ML IV PRN (11:52)
[2019-11-20] MEDS: Gabapentin 100 MG CAP PO SCH ×2 (13:24→20:02)
[2019-11-20] MEDS: Acetaminophen 500 MG TAB PO PRN (13:24)
[2019-11-20 14:32] LABS: Troponin I 0.021 ng/mL (< 0.028)
[2019-11-20 14:40] LABS: Anion Gap 15 mmol/L (10-20); BUN (Urea Nitrogen) 17 mg/dL (8.4-25.7); Calc. Creatinine Clearance 75 mL/min (70-130); Calcium 9.1 mg/dL (7.8-10.44); Carbon Dioxide 21 mmol/L (23-31); Chloride 102 mmol/L (98-107); Estimated GFR-MDRD 85; Glucose 159 mg/dL (83-110); Potassium 4.7 mmol/L (3.5-5.1); Sodium 133 mmol/L (136-145)
--- NOTE | 2019-11-20 14:58 | HP ---
PRIMARY CARE PROVIDER: Karl Feliciano MD PRIMARY TEMPER MILL ROLLER: Chuck Ochoa MD CHIEF COMPLAINT: Left-sided chest pain. HISTORY OF PRESENT ILLNESS: This is an 79-year-old male, who presents to [facility] Emergency Department complaining of left upper chest pain, which began after waking up in the morning. The patient states the pain lasted approximately 45 minutes with sharp in nature just under his pacemaker device. The patient denied any associated shortness of breath, nausea, vomiting, or diarrhea. The patient does admit that he fell within the last 3 to 4 days in his bedroom, striking his left wrist in attempts to reach his dog. The patient denied any fever, chills, or recent travel history. The patient states positional changes had mild improvement in his symptoms and he denies taking any home nitroglycerin even though he does have a prescription for the medication. The patient does admit to history of coronary artery disease, status post coronary artery bypass grafting in 2017. The patient states he has been compliant with his chronic medication regimen, but is unclear of the last time he had any type of stress testing or echocardiogram. The patient states he underwent cardiac catheterization in 2017 and was initiated on Ranexa after this procedure. The patient also complains of right lower extremity pain of his entire lower extremity. The patient does admit to associated lower back pain with some radiation of the pain to his foot. The patient denied any discoloration or deformity of the foot or leg. The patient states he has been given a referral to the outpatient [facility] for further evaluation. The patient states he also underwent CT imaging of his lumbar spine showing diffuse degenerative changes as well as moderate disk bulges in addition to moderate central canal stenosis. In the emergency room, the patient underwent general evaluation including cardiac biomarkers, which were negative x2. The patient received aspirin 325 mg in addition to fentanyl 50 mcg IV push x1. PAST MEDICAL HISTORY: 1. Coronary artery disease. 2. Ischemic cardiomyopathy, status post AICD placement. 3. History of ventricular tachycardia. 4. Myocardial infarction. 5. Diabetes mellitus type 2. 6. Hyperlipidemia. 7. Hypertension. 8. History of asbestos exposure. 9. Degenerative joint disease with myelopathy. PAST SURGICAL HISTORY: 1. Status post appendectomy. 2. Status post coronary artery bypass grafting x3 vessels in 2006. 3. Status post automatic internal cardioverter-defibrillator placement with generator change in 2018. 4. Status post cardiac catheterization. CURRENT MEDICATIONS: 1. Enteric-coated aspirin 81 mg p.o. daily. 2. Lipitor 80 mg p.o. at bedtime. 3. Gabapentin 200 mg p.o. t.i.d. 4. Metformin 500 mg p.o. daily. 5. Nitroglycerin 0.4 mg sublingually q.5 minutes p.r.n. chest pain. ALLERGIES: TO MORPHINE SULFATE. FAMILY HISTORY: Positive for coronary artery disease. SOCIAL HISTORY: History of remote tobacco use and quitting in the 1960s. No current alcohol or illicit drug use. Uses a rolling walker or motorized scooter for ambulation and mobilization. REVIEW OF SYSTEMS: CONSTITUTIONAL: Negative for weight loss or gain, ability to conduct usual activities. SKIN: Negative for rash, itching. EYES: Negative for double vision, pain. ENT/MOUTH: Negative for nose bleeding, neck stiffness, pain, tenderness. CARDIOVASCULAR: Negative for palpitations, dyspnea on exertion, orthopnea. RESPIRATORY: Negative for shortness of breath, wheezing, cough, hemoptysis, fever or night sweats. GASTROINTESTINAL: Negative for poor appetite, abdominal pain, heartburn, nausea, vomiting, constipation, or diarrhea. GENITOURINARY: Negative for urgency, frequency, dysuria, nocturia. MUSCULOSKELETAL: Negative for pain, swelling. NEUROLOGIC/PSYCHIATRIC: Negative for anxiety, depression. ALLERGY/IMMUNOLOGIC: Negative for skin rash, bleeding tendency. Otherwise, negative except as stated per HPI. PHYSICAL EXAMINATION: VITAL SIGNS: Blood pressure 186/86, pulse 82, respiratory rate 18, temperature 97.9 degrees Fahrenheit, O2 saturation 100% on room air. GENERAL APPEARANCE: This is an 79-year-old male, alert and oriented x3, pleasant, responsive, in no acute distress. HEENT: Pupils are equal, round, reactive to light and accommodation. Extraocular muscles are intact. No scleral icterus. No conjunctival injection. Nares patent. OP is clear. Teeth in fair repair. NECK: Supple. No cervical adenopathy. No thyromegaly. No carotid bruits. No JVD appreciated. Cervical spine with full active and passive range of motion. No meningeal signs noted. CHEST: Lungs are clear to auscultation bilaterally. CARDIOVASCULAR: S1 and S2 without noted murmur, rub, or gallop. Left upper chest wall with AICD/pacemaker device in place with tenderness to palpation in the intercostal spaces of the left upper chest wall. ABDOMEN: Flat, soft, nontender, nondistended. Bowel sounds are positive in all 4 quadrants. There is no hepatosplenomegaly. No abdominal bruits. No rebound or guarding appreciated. EXTREMITIES: Warm and dry with fair turgor. Pulses are palpable distally at the dorsalis pedis, posterior tibial, and popliteal arteries bilaterally. Capillary refill less than 2 seconds. NEUROLOGIC: Cranial nerves 2 through 12 are grossly intact. Straight leg raise positive at approximately 30 degrees. Diminished range of motion in the right hip in internal and external rotation. Not observed ambulatory during this exam. PERTINENT LABORATORY AND X-RAY FINDINGS: Sodium 135, potassium 5.8, chloride 107, CO2 of 19, BUN 18, creatinine 0.93, estimated GFR 78, glucose 152, calcium 9.1. LFTs within normal limits. Troponin I negative x2. CBC showed a white blood cell count of 9.2, hemoglobin 14.5, hematocrit 42 platelet count 88,000 with 75% neutrophils. Portable chest x-ray dated 11/20/2019, showed no acute cardiopulmonary process. CT of the chest with aortic dissection protocol dated 11/20/2019, showed no evidence for aortic aneurysm or dissection. EKG dated 11/20/2019 by my interpretation shows sinus mechanism with heart rates in the 60s to 70s. Normal R wave progression noted in the precordial leads. Normal axis. First-degree AV block noted. Intermittent atrial pacing. ASSESSMENT AND PLAN: 1. Chest pain. The patient will be observed on the telemetry unit. We will continue serial cardiac biomarkers x3. Check 2D transthoracic echocardiogram. Cardiolite stress testing to further rule out underlying ischemia. Consult Cardiology Service for any further recommendations. Continue aspirin. 2. Hyperkalemia. Suspect potential lab error. Repeat potassium level and monitor serial potassium. 3. Ischemic cardiomyopathy. Status post automatic implantable cardioverter-defibrillator with pacemaker placement. Repeat 2D transthoracic echocardiogram for accurate assessment of ejection fraction. 4. Degenerative joint disease with myelopathy. Supportive and symptomatic management. Outpatient followup with Pain Management Clinic. Pain control as clinically indicated. 5. Hypertension. Resume home blood pressure regimen and monitor clinical response. 6. Diabetes mellitus type 2. Insulin sliding scale for reflexive coverage. ADA diet. Serial Accu-Cheks before meals and at bedtime. 7. Prophylaxis. SCDs while in bed. Pepcid 20 mg p.o. b.i.d. 8. Code status is full. Surrogate medical decision maker is the patient's son. Job ID: [id number]
--- NOTE | 2019-11-20 18:08 | CON ---
DATE OF CONSULTATION: 11/20/2019 REASON FOR CONSULTATION: Chest pain. PRIMARY JOINT TERMINAL ATTACK CONTROLLER: Dr. Chuck Ochoa. HISTORY OF PRESENT ILLNESS: Mr. Beebe is a pleasant 79-year-old white gentleman who comes to the hospital for chest pain. He states it happened this morning after he had a walk. It lasted about 45 minutes on his pacemaker device. He denied any fever or chills. On my evaluation, he tells me that the main reason he was here was because of leg pain. His right leg is hurting. He thinks he has some problem with his lower back. He is already being evaluated for pain management and will probably be having some pain shot soon. Mr. Beebe does have a significant history of coronary artery disease. He has had bypass in the past. The last time he had a heart catheterization was in late 2017. He had a patent DURAN to the LAD, but the LAD was diffusely diseased, had a vein graft to an OM, which was patent and the RCA was occluded with collaterals from the LAD. Medical treatment was opted at that time. He has actually had angina since then and he tells me that his chronic stable angina is actually a little bit more controlled than what it usually is. PAST MEDICAL HISTORY: 1. Coronary artery disease. 2. Ischemic cardiomyopathy. 3. AICD placement. 4. History of VT in the past. 5. Type 2 diabetes. 6. Hyperlipidemia. 7. Hypertension. 8. Asbestos exposure. 9. Degenerative joint disease with myelopathy. SURGICAL HISTORY: 1. Appendectomy. 2. CABG x3 in 2006. 3. AICD in 2018. 4. Cardiac catheterization last in 02/2017. OUTPATIENT MEDICATIONS: 1. Aspirin 81 a day. 2. Lipitor 80 mg nightly. 3. Gabapentin 200 mg t.i.d. 4. Metformin 500 mg a day. 5. Nitroglycerin sublingual p.r.n. ALLERGIES: MORPHINE. FAMILY HISTORY: Early coronary artery disease. SOCIAL HISTORY: Remote tobacco use, quit in the 60s. No alcohol or drug use. REVIEW OF SYSTEMS: A 12-point review of systems was done and was found to be negative other than stated in the history of present illness. PHYSICAL EXAMINATION: VITAL SIGNS: Temperature 97.9, pulse 72, respiratory rate 18, saturating 99% on room air, and blood pressure 176/84. GENERAL: Awake, alert, and oriented x3, in no distress. HEENT: Normocephalic and atraumatic. NECK: Supple. LUNGS: Clear. CARDIOVASCULAR: S1 and S2. No S3 or S4. No murmurs. ABDOMEN: Soft. Positive bowel sounds. EXTREMITIES: No edema. SKIN: Warm and dry. LABORATORY DATA: Laboratory work was reviewed. White count of 9, hemoglobin of 14, hematocrit 42, and platelet count of 88. Chemistries were unremarkable except for potassium of 5.8, it is better now at 4.7. BUN and creatinine are normal. GFR was 85. Troponin is completely normal x3 at 0.02, 0.01, and 0.02. Albumin of 3.3. ASSESSMENT AND PLAN: 1. Chronic stable angina. 2. Coronary artery disease. No acute coronary syndrome. 3. 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 Per primary team. PLAN: 1. Agree with repeat echocardiogram. 2. I would not do a stress test at this point as we know that his coronary anatomy looks like there is diffuse disease distally and this is a good source of his angina. We would treat angina with medications first unless his troponins are positive. I would not repeat a heart catheterization at this time. His troponin is being completely normal. More than likely, it suggests chronic stable angina. 3. We will add Imdur 30 mg a day to his regimen. His blood pressure is not well controlled and this will probably also help. We will place on a very low-dose beta-gregg as well. 4. Further recommendations per results of echocardiogram. 5. Dr. Ochoa will follow up in the morning. Thank you for letting us to participate in the care of this patient. Job ID: [id number]
[2019-11-20] MEDS: Atorvastatin Calcium 40 MG TAB PO SCH (20:02)
[2019-11-21] MEDS ORDERED: Ketorolac Tromethamine 30 MG/ML VIAL IVP SCH (03:45)
[2019-11-21 05:29] LABS: Anion Gap 11 mmol/L (10-20); BUN (Urea Nitrogen) 17 mg/dL (8.4-25.7); Calc. Creatinine Clearance 72 mL/min (70-130); Calcium 9.2 mg/dL (7.8-10.44); Carbon Dioxide 23 mmol/L (23-31); Cardiac Risk 2.8 (Less than 4.5); Chloride 103 mmol/L (98-107); Cholesterol 111 mg/dl (< 200 Desired); Estimated GFR-MDRD 81; Glucose 146 mg/dL (83-110); HDL Cholesterol 39 mg/dL (>60 Neg Risk); Potassium 4.2 mmol/L (3.5-5.1); Sodium 133 mmol/L (136-145)
[2019-11-21 05:40] LABS: LDL Cholesterol, Calculated 54 mg/dL
[2019-11-21 05:59] LABS: Band 10 % (5-11); Eosinophils 2 % (0-10); Hemoglobin 13.9 g/dL (14.0-18.0); Lymphocytes 26 % (21-51); MDiff Complete? YES; Mean Corpuscular HGB CONC 32.6 g/dL (32.0-36.0); Mean Corpuscular Hemoglobin 30.7 pg (27.0-31.0); Mean Corpuscular Volume 94.2 fL (78.0-98.0); Mean Platelet Volume 9.4 fL (7.4-10.4); Monocytes 5 % (0-10); Neutrophil 56 % (42-75); Platelet Count 131 thou/uL (130-400); RBC Distribution Width 12.5 % (11.5-14.5); Red Blood Cell (RBC) Count 4.53 mill/uL (4.70-6.10); White Blood Cell (WBC) Count 8.8 thou/uL (4.8-10.8)
[2019-11-21 06:14] LABS: Triglycerides 71 mg/dL (Less than 150)
[2019-11-21] MEDS: Aspirin 81 mg Enteric Coated Tablet PO SCH (10:10)
[2019-11-21] MEDS: Gabapentin 100 MG CAP PO SCH ×3 (10:10→20:08)
[2019-11-21] MEDS: Carvedilol 3.125 MG TAB PO SCH ×2 (10:11→17:16)
[2019-11-21] MEDS: Acetaminophen 500 MG TAB PO PRN ×2 (12:42→20:46)
--- NOTE | 2019-11-21 19:15 | PDOC.HOSPP ---
- Subjective Encounter Date: 11/21/19 Encounter Time: 10:10 Subjective: f/u for CP likely muskuloskeletal and RLE pain likely sciatica. No new complaints but states he RLE feels a little better overall. - Objective Vital Signs & Weight: Vital Signs (12 hours) Temp Pulse Resp BP Pulse Ox 11/21/19 16:00 98.6 F 60 16 110/63 96 11/21/19 12:00 97.6 F 61 16 100/63 96 11/21/19 08:00 97.8 F 62 18 169/87 H 96 Weight Weight 174 lb I&O: 11/20/19 11/21/19 11/22/19 06:59 06:59 06:59 Intake Total 720 600 Output Total 1000 Balance -280 600 Result Diagrams: 11/21/19 03:28 11/21/19 03:28 Additional Labs: Accuchecks 11/21/19 11/21/19 11/21/19 17:05 11:09 06:29 POC Glucose 134 H 165 H 186 H Laboratory Tests 11/22/14 02/18/17 03/25/19 16:38 09:33 13:48 Plt Count Potassium B-Natriuretic Peptide 128.9 H 270.1 H 225.3 H Triglycerides Cholesterol LDL Cholesterol, Calc HDL Cholesterol 11/20/19 11/20/19 11/21/19 06:33 07:18 03:28 Plt Count 88 L Potassium 5.8 H B-Natriuretic Peptide Triglycerides 71 Cholesterol 111 LDL Cholesterol, Calc 54 HDL Cholesterol 39 11/21/19 03:28 Plt Count Potassium B-Natriuretic Peptide 125.2 H Triglycerides Cholesterol LDL Cholesterol, Calc HDL Cholesterol Radiology Reviewed by me: Yes (2D echo - EF 45-50%, inf wall hypokinesis) EKG Reviewed by me: Yes (Tele - Paced) Hospitalist ROS - Medication Medications: Active Medications Generic Name Dose Route Start Last Admin Trade Name Freq PRN Reason Stop Dose Admin Acetaminophen 1,000 mg 11/20/19 11:52 11/21/19 12:42 Tylenol PO 1,000 mg Q6H PRN Administration Mild Pain (1-3) Aspirin 81 mg 11/21/19 09:00 11/21/19 10:10 Ecotrin PO 81 mg DAILY DEISI Administration Atorvastatin Calcium 80 mg 11/20/19 21:00 11/20/19 20:02 Lipitor PO 80 mg HS DEISI Administration Carvedilol 3.125 mg 11/21/19 08:00 11/21/19 17:16 Coreg PO 3.125 mg BID-WM DEISI Administration Gabapentin 200 mg 11/20/19 15:00 11/21/19 17:16 Neurontin PO 200 mg TID DEISI Administration Insulin Human Lispro 0 units 11/20/19 11:52 11/21/19 12:41 Humalog SC 2 unit .MODERATE SLIDING SC PRN Administration Moderate Correctional Scale Isosorbide Mononitrate 30 mg 11/21/19 09:00 11/21/19 10:12 Imdur Er PO 30 mg DAILY DEISI Administration Pantoprazole Sodium 40 mg 11/21/19 09:00 11/21/19 10:11 Protonix PO 40 mg DAILY DEISI Administration - Exam General Appearance: NAD, awake alert Eye: PERRL, anicteric sclera ENT: normocephalic atraumatic, no oropharyngeal lesions Neck: supple, symmetric, no JVD, no thyromegaly, no lymphadenopathy Heart: RRR, no gallops, no rubs, normal peripheral pulses Heart - other findings: S1, S2 Respiratory: CTAB, no wheezes, no rales, no ronchi, normal chest expansion Gastrointestinal: soft, non-tender, non-distended, normal bowel sounds, no palpable masses Extremities: no cyanosis, no clubbing, no edema Skin: normal turgor Neurological: cranial nerve grossly intact, no new deficit Musculoskeletal: normal tone, generalized weakness Psychiatric: oriented to person, oriented to place Hosp A/P (1) Hyperkalemia Code(s): E87.5 - HYPERKALEMIA Status: Acute Plan: Repeat K+ normal, likely lab error, serial K+ (2) Atypical chest pain Code(s): R07.89 - OTHER CHEST PAIN Status: Acute Plan: Likely not cardiac, supportive mgmt (3) DJD (degenerative joint disease), lumbar Code(s): M47.816 - SPONDYLOSIS W/O MYELOPATHY OR RADICULOPATHY, LUMBAR REGION Status: Chronic Qualifiers: Spinal osteoarthritis complication: with radiculopathy Qualified Code(s): M47.26 - Other spondylosis with radiculopathy, lumbar region Plan: Consult Neurosurgery for any further recs, likely outpt follow up for monitoring (4) Ischemic cardiomyopathy Code(s): I25.5 - ISCHEMIC CARDIOMYOPATHY Status: Chronic Plan: Continue med mgmt, EF preserved and improving, continue ASA/Lipitor/Coreg/Imdur - Plan PT/OT, social media intern, speech therapy, respiratory therapy, out of bed/ambulate , DVT proph w/SCDs Stable currently Await Neurosurgery evaluation Pain control with Toradol Appreciate Cardiology assistance Likely home in am
[2019-11-21] MEDS: Atorvastatin Calcium 40 MG TAB PO SCH (20:08)
[2019-11-21] MEDS ORDERED: Sodium Chloride 0.9% 250 ML IV SCH (20:45)
[2019-11-22 04:48] LABS: Anion Gap 11 mmol/L (10-20); BUN (Urea Nitrogen) 33 mg/dL (8.4-25.7); Calc. Creatinine Clearance 57 mL/min (70-130); Calcium 8.6 mg/dL (7.8-10.44); Carbon Dioxide 22 mmol/L (23-31); Chloride 104 mmol/L (98-107); Estimated GFR-MDRD 62; Glucose 118 mg/dL (83-110); Potassium 3.7 mmol/L (3.5-5.1); Sodium 133 mmol/L (136-145)
[2019-11-22] MEDS: Gabapentin 100 MG CAP PO SCH ×2 (08:34→15:56)
[2019-11-22] MEDS: Carvedilol 3.125 MG TAB PO SCH ×2 (08:35→15:57)
[2019-11-22] MEDS: Aspirin 81 mg Enteric Coated Tablet PO SCH (08:35)
[2019-11-22] MEDS: Acetaminophen 500 MG TAB PO PRN (08:38)
[2019-11-22] MEDS ORDERED: predniSONE 20 MG TAB PO SCH (11:00)
[2019-11-22] MEDS ORDERED: Lidocaine 5% Patch TD SCH (11:00)
[2019-11-22 11:37] VITALS: TEMP 98.2
[2019-11-22] MEDS ORDERED: methylPREDNISolone Sod Succ/PF 125 MG/2 ML VIAL IVP SCH (12:30)
--- NOTE | 2019-11-22 13:42 | CON ---
DATE OF CONSULTATION: 11/22/2019 HISTORY OF PRESENT ILLNESS: Mr. Beebe has done well from a CV standpoint. No chest pain or pressure noted. His main complaint is leg pain from sciatica. This is being managed by hospitalist and Pain Management. PHYSICAL EXAMINATION: VITAL SIGNS: Blood pressure 154/84, pulse 60, temperature 98.2. LUNGS: Clear to auscultation. HEART: Regular rate and rhythm. ABDOMEN: Soft, nontender, nondistended. EXTREMITIES: No edema. IMPRESSION: 1. Atypical chest pain. 2. Coronary artery disease. 3. Status post ICD. RECOMMENDATIONS: Mr. Beebe from a CV standpoint appears stable. He has no current symptoms suggesting angina. His sciatica is being addressed by the primary team. Otherwise, I have no further recommendations. Plan is to follow up with Dr. Ochoa as an outpatient. Job ID: [id number]
[2019-11-22 15:55] VITALS: BP 111/55
[2019-11-22] MEDS ORDERED: Lidocaine Patch Removal 1 EACH TOP SCH (23:00)
--- NOTE | 2019-11-23 01:33 | DIS ---
DATE OF ADMISSION: 11/20/2019 DATE OF DISCHARGE: 11/22/2019 DISCHARGE DIAGNOSES: 1. Atypical chest pain, noncardiac. 2. Hyperkalemia, lab error resolved. 3. Right lower extremity radiculopathy/myelopathy. 4. Ischemic cardiomyopathy with ejection fraction of 45% to 50%. CONSULTATIONS: 1. Chuck Ochoa MD and Romel Vilchis MD with Cardiology Service. 2. Charline Romano MD with Pain Management Service. PERTINENT LABORATORY AND X-RAY FINDINGS: Sodium ranged between 133 to 135 and creatinine ranged between 0.86 to 1.14. BNP 125. Total cholesterol 111, triglyceride 71, HDL 39, and LDL 54. Portable chest x-ray dated 11/20/2019, showed no acute cardiopulmonary process. CT of the chest and abdomen with aortic dissection protocol showed no evidence for aortic dissection or aneurysm. 2D transthoracic echocardiogram dated 11/20/2019, showed ejection fraction of 45% to 50%. Inferior wall hypokinesis. HOSPITAL COURSE: The patient was observed on the telemetry unit after initially presenting with left-sided chest pain in the context of known coronary artery disease and ischemic cardiomyopathy. The patient underwent serial cardiac biomarkers, which were negative x3 as well as 2D transthoracic echocardiogram showing overall improved ejection fraction 45% to 50%. Cardiology consultation was obtained; however, no specific acute intervention was recommended and the patient was initiated on Coreg and Imdur. Interrogation of the patient's pacemaker device showed normal functioning device without evidence of dysfunction. The patient was also evaluated for right lower extremity pain with radiculopathy/myelopathy by the Pain Management Service with recommendations for outpatient followup and likely MRI imaging of the lower lumbar spine. The patient was unable to obtain the MRI imaging due to pacemaker placement. Overall, the patient did remain clinically stable during the hospital course tolerating regular oral intake with stable vital signs. I have examined the patient at the time of discharge and discussed followup instructions. The patient verbalized understanding and in agreement, ready for discharge on 11/22/2019. DISCHARGE MEDICATIONS: 1. Enteric-coated aspirin 81 mg p.o. daily. 2. Lipitor 80 mg p.o. at bedtime. 3. Glucophage 500 mg p.o. daily. 4. Nitroglycerin 0.4 mg sublingually q.5 minutes p.r.n. chest pain. 5. Coreg 3.125 mg p.o. b.i.d. 6. Gabapentin 300 mg p.o. t.i.d. 7. Imdur extended release 30 mg p.o. daily. 8. Lidocaine patch 5% one patch transdermally daily, then remove. FOLLOWUP: The patient may follow up with Dr. Karl Feliciano. The patient will follow up with Dr. Chuck Ochoa, with [facility]. The patient will follow up with Dr. Charline Romano, on 11/25/2019. ACTIVITY: Ad-tien. DIET: ADA and heart healthy. CODE STATUS: Full. DISPOSITION: Home on 11/22/2019. Job ID: [id number]
== END 2019-11-22 17:50 | disposition home or self-care (01) ==
LOC: ERS 05:15 → 2NO 06:57
PROVIDERS: ADMIT Internal Medicine; ATTEND Internal Medicine
DX: R07.89 Other chest pain (principal); E87.5 Hyperkalemia; M47.16 Other spondylosis with myelopathy, lumbar region; M47.26 Other spondylosis with radiculopathy, lumbar region; I25.5 Ischemic cardiomyopathy; I25.10 Atherosclerotic heart disease of native coronary artery without angina pectoris; I25.2 Old myocardial infarction; I10 Essential (primary) hypertension; E11.9 Type 2 diabetes mellitus without complications; Z77.090 Contact with and (suspected) exposure to asbestos; Z87.891 Personal history of nicotine dependence; Z79.82 Long term (current) use of aspirin; Z79.84 Long term (current) use of oral hypoglycemic drugs; Z79.899 Other long term (current) drug therapy; Z88.5 Allergy status to narcotic agent; Z95.1 Presence of aortocoronary bypass graft; Z95.810 Presence of automatic (implantable) cardiac defibrillator
CPT/HCPCS: 36415; 36416; 71045; 71275; 72191; 74175; 80048; 80053; 80061; 83880; 84484; 85007; 85025; 85027; 93005; 93306; 94760; 96374; 96375; G0378; J1885; J2930; J3010; J7512; Q9967

== ENCOUNTER 2019-11-25 10:46 | Outpatient (CLI) | payer MEDICARE ==
--- NOTE | 2019-11-25 11:59 | CT ---
Exam: CT lumbar spine without contrast HISTORY: Right foot pain, radiating down the right leg and hip. Low back pain. COMPARISON: None. CORRELATION: CT abdomen pelvis without contrast 11/09/2019. CT dissection protocol 11/20/2019. FINDINGS: Stable attenuation of the visualized solid organs and paraspinal muscles. Stable atherosclerosis of a nonaneurysmal aorta. No paraspinal or retroperitoneal mass, lymphadenopathy or hematoma. Mass effect upon the urinary bladder due to enlarged prostate gland. Presacral fat is preserved. Straightening of lumbar lordosis. Lumbar spine vertebral body heights are maintained. There is no fra cture. No spondylolisthesis or spondylolysis. Severe degenerative change with loss of disc space height and osteophyte formation and endplate scler osis at L5-S1. Visualized bony pelvis and sacrum are intact. Limited evaluation of the contents of the central spinal canal and neural foramina due to technique. T12-L1, L1-L2: No significant central canal stenosis or significant neural foraminal narrowing. L1-L2: Vacuum disc phenomenon. Severe loss of disc space height. Broad-based disc bulge, ligamentum f lavum thickening and facet hypertrophy result in mild central canal stenosis. Patent right neural foramen. Moderate left neural foraminal narrowing. L2-L3: Moderate loss of disc space height. Broad-based disc bulge, ligamentum flavum thickening and f acet hypertrophy result in mild central canal stenosis. There is at least partial obscuration of the traversing left L3 nerve root secondary to narrowing of the left subarticular zone. Patent right neural foramen. Moderate left neural foraminal narrowing. L3-L4:: Mild to moderate loss of disc space height. Broad-based disc bulge, ligamentum flavum thicken ing and facet hypertrophy result in mild to moderate central canal stenosis. Right neural foramen is patent. Moderate left neural foraminal narrowing predominantly due to disc material. L4-L5: Mild loss of disc space height. Broad-based disc bulge, ligamentum flavum thickening and facet hypertrophy. Mild to moderate central canal stenosis. Moderate to severe right foraminal narrowing due to disc material. Mild left foraminal narrowing due to disc material. L5-S1: Severe loss of disc space height. Broad-based disc bulge abuts the thecal sac. Disc material e ncroaches upon bilateral subarticular zone. Partial obscuration of bilateral traversing S1 nerve roots. Moderate bilateral neural foraminal narrowing. IMPRESSION: 1. No fracture. 2. Varying degrees of central canal stenosis and neural foraminal narrowing as detailed above. Transcribed Date/Time: 11/25/2019 1:01 PM
== END 2019-11-25 10:47 | disposition home or self-care (01) ==
LOC: SCSCT 10:46
PROVIDERS: ATTEND Family Medicine
DX: M54.16 Radiculopathy, lumbar region (principal); M48.061 Spinal stenosis, lumbar region without neurogenic claudication; M48.07 Spinal stenosis, lumbosacral region
CPT/HCPCS: 72131

== ENCOUNTER 2020-03-31 12:40 | Outpatient (CLI) | payer MEDICARE ==
--- NOTE | 2020-03-31 13:09 | ULT ---
EXAM: Right lower extremity venous ultrasound HISTORY: Right lower extremity pain and edema COMPARISON: None TECHNIQUE: Multiplanar grayscale and color Doppler images were obtained in a right lower extremity ve nous ultrasound. Spectral analysis of the Doppler waveforms were performed. FINDINGS: The common femoral vein, profunda femoral vein, superficial femoral vein, and popliteal vei n are normal in appearance without visible thrombus. These vessels demonstrate normal compression, flow, and augmentation. The posterior tibial vein and greater saphenous vein are patent without evidence of thrombus. IMPRESSION: No evidence of DVT.
== END 2020-03-31 12:41 | disposition home or self-care (01) ==
LOC: ULT 12:40
PROVIDERS: ATTEND Family Medicine
DX: M79.661 Pain in right lower leg (principal)

== ENCOUNTER 2020-04-14 09:05 | Emergency (ER) | payer MEDICARE ==
[2020-04-14] MEDS ORDERED: Ketorolac Tromethamine 30 MG/ML VIAL ONE (09:36)
[2020-04-14 10:18] LABS: #Eosinphils 0.1 thou/uL (0.0-0.7); #Lymphocytes 1.3 thou/uL (1.20-3.40); #Monocytes 0.7 thou/uL (0.11-0.59); #Neutrophils 9.3 thou/uL (1.40-6.50); %Basophils 0.1 % (0.0-1.0); %Eosinophils 1.3 % (0.0-10.0); %Lymphocytes 11.1 % (21.0-51.0); %Monocytes 6.3 % (0.0-10.0); %Neutrophils 81.3 % (42.0-75.0); Hemoglobin 14.4 g/dL (14.0-18.0); Mean Corpuscular HGB CONC 33.7 g/dL (32.0-36.0); Mean Corpuscular Hemoglobin 33.2 pg (27.0-31.0); Mean Corpuscular Volume 98.5 fL (78.0-98.0); Mean Platelet Volume 10.3 fL (7.4-10.4); Platelet Count 91 thou/uL (130-400); RBC Distribution Width 11.6 % (11.5-14.5); Red Blood Cell (RBC) Count 4.34 mill/uL (4.70-6.10); White Blood Cell (WBC) Count 11.4 thou/uL (4.8-10.8)
[2020-04-14 10:44] LABS: Bilirubin Negative (Negative); Blood, Urine Negative (Negative); Clarity Clear (Clear); Glucose, Urine (Dipstick) Greater than 1000 mg/dL (Negative); Ketone, Urine Negative (Negative); Leukocyte Negative Leu/uL (Negative); Nitrite Negative (Negative); Protein, Urine (Dipstick) Negative (Neg-Trace); Specific Gravity, Urine 1.015 (1.002-1.036); pH, Urine 7.5 (5.0-9.0)
[2020-04-14 10:44] LABS: ALT (SGPT) 24 U/L (8-55); AST (SGOT) 16 U/L (5-34); Albumin 3.2 g/dL (3.4-4.8); Alkaline Phosphatase 87 U/L (40-110); Anion Gap 13 mmol/L (10-20); BUN (Urea Nitrogen) 24 mg/dL (8.4-25.7); Bilirubin, Total 0.9 mg/dL (0.2-1.2); Calc. Creatinine Clearance 0 mL/min (70-130); Calcium 8.6 mg/dL (7.8-10.44); Carbon Dioxide 27 mmol/L (23-31); Chloride 100 mmol/L (98-107); Estimated GFR-MDRD 59; Globulin 2.6 g/dL (2.4-3.5); Glucose 316 mg/dL (83-110); Potassium 4.4 mmol/L (3.5-5.1); Protein, Total 5.8 g/dL (5.8-8.1); Sodium 136 mmol/L (136-145)
== END 2020-04-14 11:30 | disposition home or self-care (01) ==
LOC: ERS 09:05
DX: M54.41 Lumbago with sciatica, right side (principal); I25.10 Atherosclerotic heart disease of native coronary artery without angina pectoris; E11.9 Type 2 diabetes mellitus without complications; E78.5 Hyperlipidemia, unspecified; E78.00 Pure hypercholesterolemia, unspecified; I10 Essential (primary) hypertension; Z87.891 Personal history of nicotine dependence
CPT/HCPCS: 36415; 80053; 81003; 85025; 96374; J1885

== ENCOUNTER 2020-04-22 07:07 | Day surgery (SDC) | payer MEDICARE ==
[2020-04-21 10:11] VITALS: BMI 24.5
[2020-04-22 08:07] VITALS: BP 116/65; TEMP 97.2
[2020-04-22] MEDS ORDERED: FLU VACC QS2020-21(65YR UP)/PF 240 MCG/0.7 ML SYRINGE IM ONE (10:30)
--- NOTE | 2020-04-22 14:01 | CT ---
CT myelogram of the lumbar spine: 04/22/2020 COMPARISON: None HISTORY: Spinal stenosis, sciatica TECHNIQUE: Axial CT imaging at 2.5 mm intervals obtained through the lumbar spine with coronal and sa gittal reformatted imaging. Intrathecal contrast media is present, injected by Dr. Henderson. FINDINGS: Extensive atherosclerotic calcification of the abdominal aorta and its branches noted. Ther e is soft tissue density in the region of the urinary bladder which appears to represent an enlarged prostate gland herniating into the urinary bladder when correlated with CT abdomen pelvis pe rformed 01/16/2020. T12-L1: Bilateral mild facet hypertrophy and hypertrophy of the ligamentum flavum. No significant jakob tral canal or neural foraminal stenosis. 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 L1-2: There is anterior osteophyte formation and vacuum disc formation with bilateral mild facet hype rtrophy and hypertrophy of the ligamentum flavum. There is left lateral osteophyte formation. No significant central canal or neural foraminal stenosis. L2-3: Bilateral facet hypertrophy and hypertrophy of the ligamentum flavum noted. There is mild disc space narrowing and mild disc bulge. Lateral vacuum disc formation noted on the left with lateral left-sided osteophyte formation. Mild left neural foraminal stenosis. No significant central canal or right neural foraminal stenosis. L3-4: There is disc space narrowing and disc bulge with bilateral facet hypertrophy and hypertrophy o f the ligamentum flavum. There is mild central canal stenosis and moderate left lateral recess stenosis. Mild bilateral neural foraminal stenosis, left greater than right. L4-5: Bilateral facet hypertrophy is noted. There is mild disc bulge with mild central canal stenosis . No significant left neural foraminal stenosis. There is right moderate/severe neural foraminal stenosis on the basis of osteophyte formation and disc extension. L5-S1: There is disc space narrowing with bilateral facet hypertrophy. Osteophyte encroachment on yousif ateral neural foramina present with mild left and moderate right neural foraminal stenosis. No significant central canal stenosis. No worrisome lytic or blastic bone lesion. No acute osseous abnormality. IMPRESSION: Multilevel lumbar spine degenerative change as detailed above.
--- NOTE | 2020-04-22 18:50 | RAD ---
Lumbar myelogram HISTORY: Low back pain. Spinal stenosis. FINDINGS: After explaining the procedure and answering all questions, the lower back was prepped and draped in usual sterile fashion. Sterile technique, buffered local anesthesia, fluoroscopic guidance, and a left posterior L2-approach were used to carefully advance the tip of a 22-gauge spinal needle to the thecal sac. A total volume of 10 cc of Isovue-200 M contrast was carefully instilled into the thecal sac and fluoroscopic control and needle removed. Spot images obtained. Patient tolerated the procedure well and was eventually dismissed in good condition. Fluoroscopy time 0.8 minutes. IMPRESSION : Technically successful lumbar myelogram. CT with contrast performed and reported separately.
== END 2020-04-22 09:45 | disposition home or self-care (01) ==
LOC: RAD 07:07
PROVIDERS: ATTEND Surgery
PROC: B02B1ZZ Computerized Tomography (CT Scan) of Spinal Cord using Low Osmolar Contrast (ICD-10-PCS; principal; 2020-04-22)
DX: M48.062 Spinal stenosis, lumbar region with neurogenic claudication (principal); M54.30 Sciatica, unspecified side; M48.07 Spinal stenosis, lumbosacral region; I70.0 Atherosclerosis of aorta; J44.9 Chronic obstructive pulmonary disease, unspecified; I12.9 Hypertensive chronic kidney disease with stage 1 through stage 4 chronic kidney disease, or unspecified chronic kidney disease; E11.22 Type 2 diabetes mellitus with diabetic chronic kidney disease; N18.9 Chronic kidney disease, unspecified; I50.9 Heart failure, unspecified; I25.10 Atherosclerotic heart disease of native coronary artery without angina pectoris; I25.2 Old myocardial infarction; N40.0 Benign prostatic hyperplasia without lower urinary tract symptoms; Z87.891 Personal history of nicotine dependence; Z79.82 Long term (current) use of aspirin; Z79.84 Long term (current) use of oral hypoglycemic drugs; Z79.899 Other long term (current) drug therapy; Z88.5 Allergy status to narcotic agent; Z95.0 Presence of cardiac pacemaker; Z95.1 Presence of aortocoronary bypass graft; Z23 Encounter for immunization
CPT/HCPCS: 62304; 72132; 90662; G0008; 90471

== ENCOUNTER 2021-03-07 17:40 | Inpatient (IN) | payer MEDICARE ==
[2021-03-07 23:37] VITALS: BMI 22.6
[2021-03-08] MEDS ORDERED: Ondansetron PF 4 MG/2 ML Vial IVP PRN (00:43)
[2021-03-08] MEDS ORDERED: Acetaminophen 325 MG TAB PO PRN (00:43)
[2021-03-08] MEDS ORDERED: Nitroglycerin 0.4 MG TAB (25 Tab Bottle) SL PRN (00:46)
[2021-03-08 01:54] LABS: Troponin I 0.019 ng/mL (< 0.028)
[2021-03-08 01:56] LABS: #Eosinphils 0.1 thou/uL (0.0-0.7); #Lymphocytes 1.6 thou/uL (1.20-3.40); #Monocytes 0.5 thou/uL (0.11-0.59); #Neutrophils 3.6 thou/uL (1.40-6.50); %Basophils 0.5 % (0.0-1.0); %Eosinophils 2.4 % (0.0-10.0); %Lymphocytes 27.2 % (21.0-51.0); %Monocytes 8.3 % (0.0-10.0); %Neutrophils 61.7 % (42.0-75.0); Mean Corpuscular Hemoglobin 33.2 pg (27.0-31.0); Mean Corpuscular Volume 97.8 fL (78.0-98.0); Mean Platelet Volume 9.4 fL (7.4-10.4); Platelet Count 94 thou/uL (130-400); White Blood Cell (WBC) Count 5.8 thou/uL (4.8-10.8)
[2021-03-08 02:36] LABS: Anion Gap 11 mmol/L (10-20); BUN (Urea Nitrogen) 14 mg/dL (8.4-25.7); Calc. Creatinine Clearance 54 mL/min (70-130); Calcium 9.6 mg/dL (7.8-10.44); Carbon Dioxide 26 mmol/L (23-31); Chloride 104 mmol/L (98-107); Glucose 132 mg/dL (83-110); Potassium 4.1 mmol/L (3.5-5.1); Sodium 137 mmol/L (136-145)
[2021-03-08 05:43] LABS: Troponin I 0.015 ng/mL (< 0.028)
[2021-03-08] MEDS ORDERED: Labetalol HCl 100 MG/20 ML VIAL SLOW IVP PRN (08:43)
[2021-03-08] MEDS ORDERED: Electrolyte Replacement Protocol 1 EACH FS SCH (08:45)
[2021-03-08] MEDS ORDERED: Icosapent Ethyl 1 GM CAPSULE PO SCH ×2 (09:00→09:45)
[2021-03-08] MEDS ORDERED: FLU VACC QS2021-22(65YR UP)/PF 240 MCG/0.7 ML SYRINGE IM ONE (09:00)
[2021-03-08] MEDS ORDERED: Non-Formulary Item 1 EACH (Icosapent Ethyl 1 GM Capsule) PO SCH (09:00)
[2021-03-08] MEDS ORDERED: Clopidogrel Bisulfate 300 MG TAB PO SCH (09:45)
[2021-03-08] MEDS: Aspirin 81 mg Enteric Coated Tablet PO SCH (10:40)
[2021-03-08] MEDS: Gabapentin 100 MG CAP PO SCH ×2 (10:41→20:35)
[2021-03-08 12:13] LABS: Magnesium 1.7 mg/dL (1.6-2.6)
[2021-03-08] MEDS ORDERED: Insulin Regular 300 UNITS/3 ML VIAL SC PRN ×2 (12:22)
[2021-03-08] MEDS ORDERED: Dextrose 50% Abboject 50 ML SYRINGE SLOW IVP PRN (12:22)
[2021-03-08] MEDS ORDERED: Dextrose 5% in Water 1,000 ML IV PRN (12:22)
[2021-03-08] MEDS ORDERED: Magnesium 2 GM/50 ML 2 GM in Premix Bag 1 BAG IVPB SCH (14:00)
[2021-03-08] MEDS ORDERED: Sodium Chloride 0.9% 250 ML IV SCH (17:30)
[2021-03-08] MEDS: Carvedilol 3.125 MG TAB PO SCH (17:59)
[2021-03-08] MEDS: Atorvastatin Calcium 40 MG TAB PO SCH (20:34)
[2021-03-08] MEDS: Icosapent Ethyl 1 GM CAPSULE PO SCH (20:36)
[2021-03-09 05:43] LABS: #Eosinphils 0.1 thou/uL (0.0-0.7); #Lymphocytes 1.2 thou/uL (1.20-3.40); #Monocytes 0.5 thou/uL (0.11-0.59); #Neutrophils 3.9 thou/uL (1.40-6.50); %Basophils 0.4 % (0.0-1.0); %Lymphocytes 21.3 % (21.0-51.0); %Neutrophils 67.2 % (42.0-75.0); Hemoglobin 11.9 g/dL (14.0-18.0); Mean Corpuscular HGB CONC 33.7 g/dL (32.0-36.0); Mean Corpuscular Hemoglobin 33.1 pg (27.0-31.0); Mean Corpuscular Volume 98.2 fL (78.0-98.0); Mean Platelet Volume 9.2 fL (7.4-10.4); Platelet Count 91 thou/uL (130-400); White Blood Cell (WBC) Count 5.8 thou/uL (4.8-10.8)
[2021-03-09 05:53] LABS: Anion Gap 11 mmol/L (10-20); BUN (Urea Nitrogen) 18 mg/dL (8.4-25.7); Calc. Creatinine Clearance 48 mL/min (70-130); Calcium 9.1 mg/dL (7.8-10.44); Carbon Dioxide 25 mmol/L (23-31); Chloride 105 mmol/L (98-107); Glucose 130 mg/dL (83-110); Potassium 4.4 mmol/L (3.5-5.1); Sodium 137 mmol/L (136-145)
[2021-03-09 08:11] LABS: Magnesium 2.2 mg/dL (1.6-2.6)
[2021-03-09] MEDS: Icosapent Ethyl 1 GM CAPSULE PO SCH ×2 (09:32→20:20)
[2021-03-09] MEDS: Gabapentin 100 MG CAP PO SCH ×2 (09:33→20:20)
[2021-03-09] MEDS: Aspirin 81 mg Enteric Coated Tablet PO SCH (09:33)
[2021-03-09] MEDS: Clopidogrel Bisulfate 75 MG TAB PO SCH (09:33)
[2021-03-09] MEDS ORDERED: Sodium Chloride 0.9% 250 ML IV SCH (10:45)
[2021-03-09] MEDS: Carvedilol 3.125 MG TAB PO SCH (11:01)
[2021-03-09] MEDS: Atorvastatin Calcium 40 MG TAB PO SCH (20:20)
[2021-03-10 05:49] LABS: #Eosinphils 0.1 thou/uL (0.0-0.7); #Lymphocytes 1.4 thou/uL (1.20-3.40); #Monocytes 0.5 thou/uL (0.11-0.59); #Neutrophils 3.3 thou/uL (1.40-6.50); %Basophils 0.2 % (0.0-1.0); %Eosinophils 1.9 % (0.0-10.0); %Lymphocytes 26.8 % (21.0-51.0); %Monocytes 9.4 % (0.0-10.0); %Neutrophils 61.8 % (42.0-75.0); Hemoglobin 12.5 g/dL (14.0-18.0); Mean Corpuscular HGB CONC 33.7 g/dL (32.0-36.0); Mean Corpuscular Hemoglobin 33.1 pg (27.0-31.0); Mean Corpuscular Volume 98.2 fL (78.0-98.0); Mean Platelet Volume 9.8 fL (7.4-10.4); Platelet Count 87 thou/uL (130-400); Red Blood Cell (RBC) Count 3.78 mill/uL (4.70-6.10); White Blood Cell (WBC) Count 5.3 thou/uL (4.8-10.8)
[2021-03-10 06:02] LABS: Anion Gap 13 mmol/L (10-20); BUN (Urea Nitrogen) 17 mg/dL (8.4-25.7); Calc. Creatinine Clearance 48 mL/min (70-130); Calcium 8.5 mg/dL (7.8-10.44); Carbon Dioxide 22 mmol/L (23-31); Chloride 105 mmol/L (98-107); Glucose 120 mg/dL (83-110); Potassium 4.3 mmol/L (3.5-5.1); Sodium 136 mmol/L (136-145)
[2021-03-10] MEDS: Gabapentin 100 MG CAP PO SCH ×2 (09:07→20:36)
[2021-03-10] MEDS: Aspirin 81 mg Enteric Coated Tablet PO SCH (09:07)
[2021-03-10] MEDS: Icosapent Ethyl 1 GM CAPSULE PO SCH ×2 (09:07→20:36)
[2021-03-10] MEDS: Clopidogrel Bisulfate 75 MG TAB PO SCH (09:08)
[2021-03-10] MEDS ORDERED: Sodium Chloride 0.9% 500 ML IV SCH (15:45)
[2021-03-10] MEDS ORDERED: Fludrocortisone Acetate 0.1 MG TAB PO SCH (15:45)
[2021-03-10] MEDS: Atorvastatin Calcium 40 MG TAB PO SCH (20:36)
[2021-03-11] MEDS: Fludrocortisone Acetate 0.1 MG TAB PO SCH (09:16)
[2021-03-11] MEDS: Clopidogrel Bisulfate 75 MG TAB PO SCH (09:16)
[2021-03-11] MEDS: Icosapent Ethyl 1 GM CAPSULE PO SCH ×2 (09:16→20:42)
[2021-03-11] MEDS: Gabapentin 100 MG CAP PO SCH ×2 (09:16→20:42)
[2021-03-11] MEDS: metFORMIN 500 MG TAB PO SCH (09:16)
[2021-03-11] MEDS: Aspirin 81 mg Enteric Coated Tablet PO SCH (09:16)
[2021-03-11] MEDS ORDERED: Polyethylene Glycol 3350 17 GM Packet PO SCH (10:30)
[2021-03-11] MEDS ORDERED: Senokot S 8.6-50 MG TAB PO SCH (10:30)
[2021-03-11] MEDS: Atorvastatin Calcium 40 MG TAB PO SCH (20:42)
[2021-03-11] MEDS: Senokot S 8.6-50 MG TAB PO SCH (20:51)
[2021-03-12 08:14] VITALS: TEMP 97.5
[2021-03-12] MEDS: Clopidogrel Bisulfate 75 MG TAB PO SCH (08:44)
[2021-03-12] MEDS: Icosapent Ethyl 1 GM CAPSULE PO SCH (08:44)
[2021-03-12] MEDS: metFORMIN 500 MG TAB PO SCH (08:44)
[2021-03-12] MEDS: Aspirin 81 mg Enteric Coated Tablet PO SCH (08:44)
[2021-03-12] MEDS: Gabapentin 100 MG CAP PO SCH (08:44)
[2021-03-12] MEDS: Fludrocortisone Acetate 0.1 MG TAB PO SCH (08:45)
[2021-03-12] MEDS: Senokot S 8.6-50 MG TAB PO SCH (08:45)
[2021-03-12] MEDS ORDERED: Polyethylene Glycol 3350 17 GM Packet PO SCH (09:00)
[2021-03-12 12:00] VITALS: BP 137/71
== END 2021-03-12 13:15 | disposition home or self-care (01) | DRG 303 ==
LOC: 2NO 17:40 → OBSVTOIN 21:14
PROVIDERS: ADMIT Family Medicine; ATTEND Internal Medicine
DX: I25.110 Atherosclerotic heart disease of native coronary artery with unstable angina pectoris (principal); I10 Essential (primary) hypertension; E11.9 Type 2 diabetes mellitus without complications; E78.5 Hyperlipidemia, unspecified; Z77.090 Contact with and (suspected) exposure to asbestos; I16.0 Hypertensive urgency; N18.2 Chronic kidney disease, stage 2 (mild); D50.9 Iron deficiency anemia, unspecified; D69.6 Thrombocytopenia, unspecified; I95.1 Orthostatic hypotension; E83.42 Hypomagnesemia; Z88.5 Allergy status to narcotic agent; Z95.1 Presence of aortocoronary bypass graft; I25.2 Old myocardial infarction; Z95.810 Presence of automatic (implantable) cardiac defibrillator; Z87.891 Personal history of nicotine dependence
CPT/HCPCS: 36415; 36416; 71045; 71275; 80048; 80053; 82550; 83690; 83735; 84484; 85025; 85379; 93005; 93306; J1815; J2405; J3475; J7030

== ENCOUNTER 2021-03-18 09:29 | Emergency (ER) | payer MEDICARE ==
[2021-03-18 10:29] LABS: #Eosinphils 0.1 thou/uL (0.0-0.7); #Lymphocytes 0.6 thou/uL (1.20-3.40); #Monocytes 0.4 thou/uL (0.11-0.59); #Neutrophils 5.1 thou/uL (1.40-6.50); %Basophils 0.1 % (0.0-1.0); %Eosinophils 1.1 % (0.0-10.0); %Lymphocytes 9.8 % (21.0-51.0); Hemoglobin 13.4 g/dL (14.0-18.0); Mean Corpuscular HGB CONC 34.9 g/dL (32.0-36.0); Mean Corpuscular Hemoglobin 33.5 pg (27.0-31.0); Platelet Count 84 thou/uL (130-400); Red Blood Cell (RBC) Count 4.01 mill/uL (4.70-6.10); White Blood Cell (WBC) Count 6.2 thou/uL (4.8-10.8)
[2021-03-18 10:34] LABS: ALT (SGPT) 11 U/L (8-55); AST (SGOT) 19 U/L (5-34); Albumin 3.3 g/dL (3.4-4.8); Alkaline Phosphatase 83 U/L (40-110); Anion Gap 14 mmol/L (10-20); BUN (Urea Nitrogen) 25 mg/dL (8.4-25.7); Bilirubin, Total 1.3 mg/dL (0.2-1.2); Calc. Creatinine Clearance 0 mL/min (70-130); Calcium 8.8 mg/dL (7.8-10.44); Carbon Dioxide 29 mmol/L (23-31); Chloride 100 mmol/L (98-107); Globulin 2.8 g/dL (2.4-3.5); Glucose 105 mg/dL (83-110); Potassium 3.9 mmol/L (3.5-5.1); Protein, Total 6.1 g/dL (5.8-8.1); Sodium 139 mmol/L (136-145)
[2021-03-18 11:41] LABS: SARS-CoV-2 NAA Rapid Test Not Detected (NotDetected)
[2021-03-18] MEDS ORDERED: Ondansetron PF 4 MG/2 ML Vial ONE (12:53)
[2021-03-18 13:24] LABS: Troponin I 0.017 ng/mL (< 0.028)
[2021-03-18 13:33] LABS: Bacteria/HPF None Seen HPF (None Seen); Bilirubin Negative (Negative); Blood, Urine Negative (Negative); Clarity Clear (Clear); Glucose, Urine (Dipstick) Normal (Negative); Ketone, Urine 10 mg/dL (Negative); Leukocyte Negative Leu/uL (Negative); Nitrite Negative (Negative); Protein, Urine (Dipstick) 30 mg/dL (Neg-Trace); RBC/HPF 0-3 HPF (0-3); Squamous Epithelial 0-3 HPF (0-3); WBC/HPF 0-3 HPF (0-3)
== END 2021-03-18 14:45 | disposition home or self-care (01) ==
LOC: ERS 09:29
DX: R11.2 Nausea with vomiting, unspecified (principal); R07.9 Chest pain, unspecified; Z20.822 Contact with and (suspected) exposure to COVID-19; I25.2 Old myocardial infarction; E11.9 Type 2 diabetes mellitus without complications; E78.5 Hyperlipidemia, unspecified; I10 Essential (primary) hypertension; Z87.891 Personal history of nicotine dependence; Z79.899 Other long term (current) drug therapy
CPT/HCPCS: 71045; 74177; 76705; 80053; 83605; 84484 ×2; 85025; 93005; 96374; 99285; U0002; 36415; 81003; 81015; J2405

== ENCOUNTER 2021-07-14 12:49 | Inpatient (IN) | payer MEDICARE ==
[2021-07-14 14:09] LABS: #Eosinphils 0.2 thou/uL (0.0-0.7); #Lymphocytes 0.9 thou/uL (1.20-3.40); #Monocytes 0.4 thou/uL (0.11-0.59); #Neutrophils 3.4 thou/uL (1.40-6.50); %Eosinophils 4.2 % (0.0-10.0); %Lymphocytes 18.1 % (21.0-51.0); %Monocytes 7.5 % (0.0-10.0); %Neutrophils 70.2 % (42.0-75.0); Hemoglobin 12.8 g/dL (14.0-18.0); Mean Corpuscular HGB CONC 34.9 g/dL (32.0-36.0); Mean Corpuscular Hemoglobin 35.1 pg (27.0-31.0); Platelet Count 108 thou/uL (130-400); RBC Distribution Width 11.8 % (11.5-14.5); Red Blood Cell (RBC) Count 3.64 mill/uL (4.70-6.10); White Blood Cell (WBC) Count 4.8 thou/uL (4.8-10.8)
[2021-07-14 14:26] LABS: ALT (SGPT) 18 U/L (8-55); AST (SGOT) 17 U/L (5-34); Albumin 3.2 g/dL (3.4-4.8); Alkaline Phosphatase 105 U/L (40-110); Anion Gap 11 mmol/L (10-20); BUN (Urea Nitrogen) 20 mg/dL (8.4-25.7); Bilirubin, Total 0.8 mg/dL (0.2-1.2); Calc. Creatinine Clearance 0 mL/min (70-130); Calcium 8.9 mg/dL (7.8-10.44); Carbon Dioxide 27 mmol/L (23-31); Chloride 103 mmol/L (98-107); Globulin 2.7 g/dL (2.4-3.5); Glucose 218 mg/dL (83-110); Lipase 15 U/L (8-78); Potassium 4.1 mmol/L (3.5-5.1); Protein, Total 5.9 g/dL (5.8-8.1); Sodium 137 mmol/L (136-145)
[2021-07-14] MEDS ORDERED: Aspirin Chewable 81 MG TAB ONE (17:03)
[2021-07-14] MEDS ORDERED: Nitroglycerin 2% Ointment 1 INCH/1 GM Packet ONE ×2 (17:10→17:16)
[2021-07-14] MEDS ORDERED: HYDROcodone/Acetaminophen 5/325 mg Tablet PO PRN (17:32)
[2021-07-14] MEDS ORDERED: Bisacodyl 10 MG SUPP PR PRN (17:32)
[2021-07-14] MEDS ORDERED: Ondansetron PF 4 MG/2 ML Vial IVP PRN (17:32)
[2021-07-14] MEDS ORDERED: Ondansetron ODT 4 MG TAB PO PRN (17:32)
[2021-07-14] MEDS ORDERED: Bisacodyl 5 MG TAB PO PRN (17:32)
[2021-07-14] MEDS ORDERED: Acetaminophen 325 MG TAB PO PRN (17:32)
[2021-07-14] MEDS ORDERED: Dextrose 5% in Water 1,000 ML IV PRN (17:43)
[2021-07-14] MEDS ORDERED: Dextrose 50% Abboject 50 ML SYRINGE SLOW IVP PRN (17:43)
[2021-07-14] MEDS ORDERED: HumaLOG 300 UNITS/3 ML VIAL SC PRN (17:43)
[2021-07-14] MEDS ORDERED: hydrALAZINE 20 MG/ML VIAL SLOW IVP PRN (17:47)
[2021-07-14] MEDS ORDERED: Nitroglycerin 0.4 MG TAB (25 Tab Bottle) SL PRN (18:30)
[2021-07-14 18:33] LABS: Hemoglobin A1c 6.6 % (4.0-6.0)
[2021-07-14 19:52] VITALS: BMI 23.1
[2021-07-14] MEDS: Senokot S 8.6-50 MG TAB PO SCH (20:16)
[2021-07-14] MEDS ORDERED: Atorvastatin Calcium 40 MG TAB PO SCH (21:00)
[2021-07-14 21:16] LABS: SARS-CoV-2 NAA Rapid Test Not Detected (NotDetected)
[2021-07-15 05:24] LABS: #Eosinphils 0.2 thou/uL (0.0-0.7); #Lymphocytes 1.1 thou/uL (1.20-3.40); #Monocytes 0.5 thou/uL (0.11-0.59); #Neutrophils 3.6 thou/uL (1.40-6.50); %Basophils 0.3 % (0.0-1.0); %Eosinophils 3.7 % (0.0-10.0); %Lymphocytes 20.3 % (21.0-51.0); %Monocytes 8.6 % (0.0-10.0); Hemoglobin 12.7 g/dL (14.0-18.0); Mean Corpuscular HGB CONC 33.8 g/dL (32.0-36.0); Mean Corpuscular Hemoglobin 33.7 pg (27.0-31.0); Mean Corpuscular Volume 99.6 fL (78.0-98.0); Mean Platelet Volume 9.2 fL (7.4-10.4); Platelet Count 119 thou/uL (130-400); RBC Distribution Width 11.9 % (11.5-14.5); Red Blood Cell (RBC) Count 3.77 mill/uL (4.70-6.10); White Blood Cell (WBC) Count 5.4 thou/uL (4.8-10.8)
[2021-07-15 05:33] LABS: Anion Gap 11 mmol/L (10-20); BUN (Urea Nitrogen) 19 mg/dL (8.4-25.7); Calc. Creatinine Clearance 57 mL/min (70-130); Calcium 9.2 mg/dL (7.8-10.44); Carbon Dioxide 23 mmol/L (23-31); Cardiac Risk 2.8 (Less than 4.5); Chloride 106 mmol/L (98-107); Cholesterol 91 mg/dl (< 200 Desired); Glucose 179 mg/dL (83-110); HDL Cholesterol 33 mg/dL (>60 Neg Risk); LDL Cholesterol, Calculated 48 mg/dL; Magnesium 1.8 mg/dL (1.6-2.6); Phosphorus 2.6 mg/dL (2.3-4.7); Potassium 3.8 mmol/L (3.5-5.1); Sodium 136 mmol/L (136-145); Triglycerides 52 mg/dL (Less than 150)
[2021-07-15] MEDS ORDERED: Icosapent Ethyl 1 GM CAPSULE PO SCH (09:00)
[2021-07-15] MEDS ORDERED: Enoxaparin Sodium 40 MG/0.4 ML SYRINGE SC SCH (09:00)
[2021-07-15] MEDS: Aspirin Chewable 81 MG TAB PO SCH (09:22)
[2021-07-15] MEDS: Enoxaparin Sodium 80 MG/0.8 ML SYRINGE SC SCH ×2 (09:22→20:40)
[2021-07-15] MEDS: Senokot S 8.6-50 MG TAB PO SCH ×2 (09:24→20:42)
[2021-07-15] MEDS: HumaLOG 300 UNITS/3 ML VIAL SC PRN (11:43)
[2021-07-15] MEDS: Atorvastatin Calcium 40 MG TAB PO SCH (20:40)
[2021-07-15] MEDS: Gabapentin 100 MG CAP PO SCH (20:41)
[2021-07-15] MEDS: Icosapent Ethyl 1 GM CAPSULE PO SCH (20:42)
[2021-07-16] MEDS ORDERED: Sodium Chloride 0.9% 500 ML IV SCH (01:45)
[2021-07-16 05:20] LABS: #Eosinphils 0.1 thou/uL (0.0-0.7); #Lymphocytes 1.2 thou/uL (1.20-3.40); #Monocytes 0.4 thou/uL (0.11-0.59); #Neutrophils 3.6 thou/uL (1.40-6.50); %Eosinophils 2.2 % (0.0-10.0); %Lymphocytes 22.4 % (21.0-51.0); %Monocytes 6.7 % (0.0-10.0); %Neutrophils 68.7 % (42.0-75.0); Hemoglobin 11.5 g/dL (14.0-18.0); Mean Corpuscular HGB CONC 34.5 g/dL (32.0-36.0); Mean Corpuscular Hemoglobin 34.3 pg (27.0-31.0); Mean Corpuscular Volume 99.3 fL (78.0-98.0); Mean Platelet Volume 8.7 fL (7.4-10.4); Platelet Count 106 thou/uL (130-400); RBC Distribution Width 11.9 % (11.5-14.5); Red Blood Cell (RBC) Count 3.35 mill/uL (4.70-6.10); White Blood Cell (WBC) Count 5.3 thou/uL (4.8-10.8)
[2021-07-16 05:45] LABS: Anion Gap 11 mmol/L (10-20); BUN (Urea Nitrogen) 26 mg/dL (8.4-25.7); Calc. Creatinine Clearance 44 mL/min (70-130); Calcium 8.7 mg/dL (7.8-10.44); Carbon Dioxide 24 mmol/L (23-31); Chloride 105 mmol/L (98-107); Glucose 133 mg/dL (83-110); Magnesium 1.7 mg/dL (1.6-2.6); Phosphorus 3.5 mg/dL (2.3-4.7); Potassium 4.3 mmol/L (3.5-5.1); Sodium 136 mmol/L (136-145)
[2021-07-16] MEDS: Gabapentin 100 MG CAP PO SCH ×2 (08:43→20:44)
[2021-07-16] MEDS: Senokot S 8.6-50 MG TAB PO SCH ×2 (08:44→20:45)
[2021-07-16] MEDS: Enoxaparin Sodium 80 MG/0.8 ML SYRINGE SC SCH ×2 (08:44→20:44)
[2021-07-16] MEDS: Clopidogrel Bisulfate 75 MG TAB PO SCH (08:44)
[2021-07-16] MEDS: Icosapent Ethyl 1 GM CAPSULE PO SCH ×2 (08:44→17:34)
[2021-07-16] MEDS: Aspirin Chewable 81 MG TAB PO SCH (08:44)
[2021-07-16] MEDS: HumaLOG 300 UNITS/3 ML VIAL SC PRN (11:30)
[2021-07-16] MEDS: Atorvastatin Calcium 40 MG TAB PO SCH (20:43)
[2021-07-16] MEDS: Bisacodyl 5 MG TAB PO SCH (20:44)
[2021-07-17 04:39] LABS: #Eosinphils 0.1 thou/uL (0.0-0.7); #Lymphocytes 1.2 thou/uL (1.20-3.40); #Monocytes 0.4 thou/uL (0.11-0.59); #Neutrophils 2.3 thou/uL (1.40-6.50); %Basophils 0.1 % (0.0-1.0); %Eosinophils 2.6 % (0.0-10.0); %Lymphocytes 29.1 % (21.0-51.0); %Monocytes 9.9 % (0.0-10.0); %Neutrophils 58.2 % (42.0-75.0); Hemoglobin 11.1 g/dL (14.0-18.0); Mean Corpuscular HGB CONC 33.9 g/dL (32.0-36.0); Mean Corpuscular Hemoglobin 33.9 pg (27.0-31.0); Mean Corpuscular Volume 99.8 fL (78.0-98.0); Mean Platelet Volume 8.7 fL (7.4-10.4); Platelet Count 107 thou/uL (130-400); RBC Distribution Width 11.7 % (11.5-14.5); Red Blood Cell (RBC) Count 3.29 mill/uL (4.70-6.10)
[2021-07-17 05:04] LABS: Anion Gap 11 mmol/L (10-20); BUN (Urea Nitrogen) 27 mg/dL (8.4-25.7); Calc. Creatinine Clearance 44 mL/min (70-130); Calcium 8.7 mg/dL (7.8-10.44); Carbon Dioxide 24 mmol/L (23-31); Chloride 104 mmol/L (98-107); Glucose 143 mg/dL (83-110); Magnesium 1.8 mg/dL (1.6-2.6); Phosphorus 3.5 mg/dL (2.3-4.7); Potassium 3.8 mmol/L (3.5-5.1); Sodium 135 mmol/L (136-145)
[2021-07-17] MEDS: Enoxaparin Sodium 80 MG/0.8 ML SYRINGE SC SCH ×2 (10:20→21:48)
[2021-07-17] MEDS: Gabapentin 100 MG CAP PO SCH ×2 (10:21→21:47)
[2021-07-17] MEDS: Bisacodyl 5 MG TAB PO SCH ×2 (10:21→21:46)
[2021-07-17] MEDS: Aspirin Chewable 81 MG TAB PO SCH (10:21)
[2021-07-17] MEDS: Senokot S 8.6-50 MG TAB PO SCH ×2 (10:21→21:48)
[2021-07-17] MEDS: Clopidogrel Bisulfate 75 MG TAB PO SCH (10:22)
[2021-07-17] MEDS: Icosapent Ethyl 1 GM CAPSULE PO SCH ×2 (10:33→17:37)
[2021-07-17] MEDS: HumaLOG 300 UNITS/3 ML VIAL SC PRN (12:55)
[2021-07-17] MEDS: Atorvastatin Calcium 40 MG TAB PO SCH (21:47)
[2021-07-18 05:32] LABS: #Eosinphils 0.2 thou/uL (0.0-0.7); #Lymphocytes 1.2 thou/uL (1.20-3.40); #Monocytes 0.5 thou/uL (0.11-0.59); #Neutrophils 3.1 thou/uL (1.40-6.50); %Basophils 0.1 % (0.0-1.0); %Eosinophils 3.1 % (0.0-10.0); %Lymphocytes 25.2 % (21.0-51.0); %Monocytes 9.2 % (0.0-10.0); %Neutrophils 62.4 % (42.0-75.0); Mean Corpuscular HGB CONC 33.6 g/dL (32.0-36.0); Mean Corpuscular Hemoglobin 33.7 pg (27.0-31.0); Mean Platelet Volume 8.6 fL (7.4-10.4); Platelet Count 102 thou/uL (130-400); RBC Distribution Width 11.8 % (11.5-14.5); Red Blood Cell (RBC) Count 3.27 mill/uL (4.70-6.10); White Blood Cell (WBC) Count 4.9 thou/uL (4.8-10.8)
[2021-07-18 05:48] LABS: Anion Gap 10 mmol/L (10-20); BUN (Urea Nitrogen) 23 mg/dL (8.4-25.7); Calc. Creatinine Clearance 52 mL/min (70-130); Calcium 8.6 mg/dL (7.8-10.44); Carbon Dioxide 24 mmol/L (23-31); Chloride 106 mmol/L (98-107); Glucose 141 mg/dL (83-110); Magnesium 1.8 mg/dL (1.6-2.6); Phosphorus 3.2 mg/dL (2.3-4.7); Potassium 3.8 mmol/L (3.5-5.1); Sodium 136 mmol/L (136-145)
[2021-07-18] MEDS: Icosapent Ethyl 1 GM CAPSULE PO SCH (08:18)
[2021-07-18] MEDS: Bisacodyl 5 MG TAB PO SCH (08:19)
[2021-07-18] MEDS: Gabapentin 100 MG CAP PO SCH (08:19)
[2021-07-18] MEDS: Aspirin Chewable 81 MG TAB PO SCH (08:19)
[2021-07-18] MEDS: Clopidogrel Bisulfate 75 MG TAB PO SCH (08:19)
[2021-07-18] MEDS: Senokot S 8.6-50 MG TAB PO SCH (08:20)
[2021-07-18] MEDS: Enoxaparin Sodium 80 MG/0.8 ML SYRINGE SC SCH (11:01)
[2021-07-18 11:58] VITALS: BP 98/56; TEMP 97.5
== END 2021-07-18 13:19 | disposition home or self-care (01) | DRG 303 ==
LOC: ERS 12:49 → SUATTDRO 12:49 → 2SW 17:25 → OBSVTOIN 07-15 16:24
PROVIDERS: ADMIT Family Medicine; ATTEND Internal Medicine
DX: I25.110 Atherosclerotic heart disease of native coronary artery with unstable angina pectoris (principal); E11.9 Type 2 diabetes mellitus without complications; E78.5 Hyperlipidemia, unspecified; Z20.822 Contact with and (suspected) exposure to COVID-19; I95.1 Orthostatic hypotension; I25.5 Ischemic cardiomyopathy; I10 Essential (primary) hypertension; K59.00 Constipation, unspecified; N40.0 Benign prostatic hyperplasia without lower urinary tract symptoms; Z95.810 Presence of automatic (implantable) cardiac defibrillator; Z95.1 Presence of aortocoronary bypass graft; I25.2 Old myocardial infarction; Z88.5 Allergy status to narcotic agent; Z79.82 Long term (current) use of aspirin; Z79.84 Long term (current) use of oral hypoglycemic drugs; Z79.02 Long term (current) use of antithrombotics/antiplatelets; Z87.891 Personal history of nicotine dependence
CPT/HCPCS: 36415; 36416; 71045; 80048; 80053; 80061; 83036; 83690; 83735; 84100; 84443; 84484; 85025; 93005; 93880; 94760; 96372; 96374; G0378; J0360; J1650; J1815; J2405; J7030; U0002

== ENCOUNTER 2021-07-27 11:33 | Inpatient (IN) | payer MEDICARE ==
[2021-07-27 12:33] LABS: #Eosinphils 0.2 thou/uL (0.0-0.7); #Lymphocytes 1.2 thou/uL (1.20-3.40); #Monocytes 0.5 thou/uL (0.11-0.59); #Neutrophils 2.8 thou/uL (1.40-6.50); %Basophils 0.2 % (0.0-1.0); %Eosinophils 3.3 % (0.0-10.0); %Lymphocytes 26.5 % (21.0-51.0); %Monocytes 9.8 % (0.0-10.0); %Neutrophils 60.3 % (42.0-75.0); Hemoglobin 11.5 g/dL (14.0-18.0); Mean Corpuscular HGB CONC 32.7 g/dL (32.0-36.0); Mean Corpuscular Hemoglobin 33.4 pg (27.0-31.0); Mean Platelet Volume 8.6 fL (7.4-10.4); Platelet Count 112 thou/uL (130-400); RBC Distribution Width 12.2 % (11.5-14.5); Red Blood Cell (RBC) Count 3.45 mill/uL (4.70-6.10); White Blood Cell (WBC) Count 4.6 thou/uL (4.8-10.8)
[2021-07-27 12:56] LABS: ALT (SGPT) 22 U/L (8-55); AST (SGOT) 18 U/L (5-34); Albumin 2.9 g/dL (3.4-4.8); Alkaline Phosphatase 81 U/L (40-110); Anion Gap 8 mmol/L (10-20); BUN (Urea Nitrogen) 19 mg/dL (8.4-25.7); Bilirubin, Total 0.7 mg/dL (0.2-1.2); Calc. Creatinine Clearance 0 mL/min (70-130); Calcium 8.8 mg/dL (7.8-10.44); Carbon Dioxide 29 mmol/L (23-31); Chloride 104 mmol/L (98-107); Globulin 2.6 g/dL (2.4-3.5); Glucose 219 mg/dL (83-110); Magnesium 1.9 mg/dL (1.6-2.6); Potassium 4.4 mmol/L (3.5-5.1); Protein, Total 5.5 g/dL (5.8-8.1); Sodium 137 mmol/L (136-145)
[2021-07-27] MEDS ORDERED: Acetaminophen 500 MG TAB ONE (13:10)
[2021-07-27 14:12] LABS: Bilirubin Negative (Negative); Blood, Urine Negative (Negative); Clarity Turbid (Clear); Glucose, Urine (Dipstick) 150 mg/dL (Negative); Ketone, Urine Negative (Negative); Leukocyte Negative Leu/uL (Negative); Nitrite Negative (Negative); Protein, Urine (Dipstick) Negative (Neg-Trace); Urobilinogen 6 mg/dL (Less than 2)
[2021-07-27] MEDS ORDERED: Acetaminophen 325 MG TAB PO PRN (14:22)
[2021-07-27] MEDS ORDERED: Ondansetron PF 4 MG/2 ML Vial IVP PRN (14:22)
[2021-07-27] MEDS ORDERED: hydrALAZINE 20 MG/ML VIAL SLOW IVP PRN (14:26)
[2021-07-27] MEDS ORDERED: Bisacodyl 5 MG TAB PO PRN (14:26)
[2021-07-27] MEDS ORDERED: Dextrose 5% in Water 1,000 ML IV PRN (15:12)
[2021-07-27] MEDS ORDERED: Dextrose 50% Abboject 50 ML SYRINGE SLOW IVP PRN (15:12)
[2021-07-27 16:20] LABS: Troponin I 0.011 ng/mL (< 0.028)
[2021-07-27 19:25] LABS: Troponin I 0.014 ng/mL (< 0.028)
[2021-07-27 19:44] VITALS: BMI 23.4
[2021-07-27] MEDS: Icosapent Ethyl 1 GM CAPSULE PO SCH (22:02)
[2021-07-27] MEDS: Gabapentin 100 MG CAP PO SCH (22:03)
[2021-07-27] MEDS: Senokot S 8.6-50 MG TAB PO SCH (22:04)
[2021-07-27] MEDS: Atorvastatin Calcium 40 MG TAB PO SCH (23:12)
[2021-07-28 00:21] LABS: SARS-CoV-2 PCR by NAA Not Detected (NotDetected)
[2021-07-28 06:13] LABS: #Eosinphils 0.1 thou/uL (0.0-0.7); #Lymphocytes 1.4 thou/uL (1.20-3.40); #Monocytes 0.4 thou/uL (0.11-0.59); #Neutrophils 3.3 thou/uL (1.40-6.50); %Basophils 0.1 % (0.0-1.0); %Eosinophils 2.8 % (0.0-10.0); %Lymphocytes 26.6 % (21.0-51.0); %Monocytes 7.3 % (0.0-10.0); %Neutrophils 63.2 % (42.0-75.0); Hemoglobin 13.1 g/dL (14.0-18.0); Mean Corpuscular HGB CONC 33.9 g/dL (32.0-36.0); Mean Corpuscular Hemoglobin 34.1 pg (27.0-31.0); Mean Platelet Volume 8.7 fL (7.4-10.4); Platelet Count 116 thou/uL (130-400); RBC Distribution Width 12.2 % (11.5-14.5); Red Blood Cell (RBC) Count 3.86 mill/uL (4.70-6.10); White Blood Cell (WBC) Count 5.2 thou/uL (4.8-10.8)
[2021-07-28 06:30] LABS: Anion Gap 11 mmol/L (10-20); BUN (Urea Nitrogen) 15 mg/dL (8.4-25.7); Calc. Creatinine Clearance 53 mL/min (70-130); Calcium 8.9 mg/dL (7.8-10.44); Carbon Dioxide 24 mmol/L (23-31); Chloride 104 mmol/L (98-107); Glucose 179 mg/dL (83-110); Potassium 3.8 mmol/L (3.5-5.1); Sodium 135 mmol/L (136-145)
[2021-07-28] MEDS: Icosapent Ethyl 1 GM CAPSULE PO SCH ×2 (08:25→22:28)
[2021-07-28] MEDS: Gabapentin 100 MG CAP PO SCH ×2 (08:25→22:29)
[2021-07-28] MEDS: Senokot S 8.6-50 MG TAB PO SCH ×2 (08:25→22:29)
[2021-07-28] MEDS: HumaLOG 300 UNITS/3 ML VIAL SC PRN ×2 (08:26→13:14)
[2021-07-28] MEDS: Aspirin 81 mg Enteric Coated Tablet PO SCH (08:26)
[2021-07-28] MEDS: Clopidogrel Bisulfate 75 MG TAB PO SCH (08:26)
[2021-07-28 10:25] LABS: Hemoglobin A1c 6.7 % (4.0-6.0)
[2021-07-28] MEDS: Sodium Chloride 0.9% 500 ML IV SCH ×2 (13:44→23:42)
[2021-07-28] MEDS: Atorvastatin Calcium 40 MG TAB PO SCH (22:28)
[2021-07-28] MEDS ORDERED: Melatonin 3 MG TAB PO PRN (23:44)
[2021-07-28] MEDS: Sodium Chloride 0.9% 1,000 ML IV SCH (23:48)
[2021-07-29] MEDS: HumaLOG 300 UNITS/3 ML VIAL SC PRN ×2 (05:30→13:45)
[2021-07-29] MEDS: Gabapentin 100 MG CAP PO SCH ×2 (09:43→21:09)
[2021-07-29] MEDS: Aspirin 81 mg Enteric Coated Tablet PO SCH (09:43)
[2021-07-29] MEDS: Senokot S 8.6-50 MG TAB PO SCH ×2 (09:43→21:09)
[2021-07-29] MEDS: Clopidogrel Bisulfate 75 MG TAB PO SCH (09:44)
[2021-07-29] MEDS: Icosapent Ethyl 1 GM CAPSULE PO SCH ×2 (09:49→21:09)
[2021-07-29] MEDS ORDERED: NIFEdipine XL 60 MG TAB PO SCH (16:00)
[2021-07-29] MEDS ORDERED: levETIRAcetam 500 MG TAB PO SCH (17:00)
[2021-07-29] MEDS: Sodium Chloride 0.9% 1,000 ML IV SCH (19:50)
[2021-07-29] MEDS: Atorvastatin Calcium 40 MG TAB PO SCH (21:08)
[2021-07-30 05:04] LABS: Reticulocyte Count 1.7 % (0.5-1.5)
[2021-07-30 05:05] LABS: #Basophils 0.1 thou/uL (0.0-0.2); #Eosinphils 0.2 thou/uL (0.0-0.7); #Lymphocytes 1.6 thou/uL (1.20-3.40); #Monocytes 0.5 thou/uL (0.11-0.59); #Neutrophils 3.2 thou/uL (1.40-6.50); %Basophils 1.1 % (0.0-1.0); %Eosinophils 4.2 % (0.0-10.0); %Lymphocytes 28.4 % (21.0-51.0); %Monocytes 8.1 % (0.0-10.0); %Neutrophils 58.3 % (42.0-75.0); Hemoglobin 11.9 g/dL (14.0-18.0); Mean Corpuscular HGB CONC 32.8 g/dL (32.0-36.0); Mean Corpuscular Hemoglobin 33.6 pg (27.0-31.0); Mean Platelet Volume 8.9 fL (7.4-10.4); Platelet Count 114 thou/uL (130-400); RBC Distribution Width 12.2 % (11.5-14.5); Red Blood Cell (RBC) Count 3.54 mill/uL (4.70-6.10); White Blood Cell (WBC) Count 5.5 thou/uL (4.8-10.8)
[2021-07-30 05:26] LABS: Anion Gap 10 mmol/L (10-20); BUN (Urea Nitrogen) 23 mg/dL (8.4-25.7); Calc. Creatinine Clearance 46 mL/min (70-130); Calcium 8.6 mg/dL (7.8-10.44); Carbon Dioxide 22 mmol/L (23-31); Chloride 107 mmol/L (98-107); Glucose 130 mg/dL (83-110); Iron 83 ug/dL (65-175); Iron Binding Capacity, Total 168 mcg/dL (261-462); Potassium 3.9 mmol/L (3.5-5.1); Sodium 135 mmol/L (136-145)
[2021-07-30] MEDS ORDERED: NIFEdipine XL 60 MG TAB PO SCH (09:00)
[2021-07-30] MEDS: Gabapentin 100 MG CAP PO SCH ×2 (09:10→20:22)
[2021-07-30] MEDS: Clopidogrel Bisulfate 75 MG TAB PO SCH (09:15)
[2021-07-30] MEDS: Senokot S 8.6-50 MG TAB PO SCH ×2 (09:15→20:23)
[2021-07-30] MEDS: Aspirin 81 mg Enteric Coated Tablet PO SCH (09:15)
[2021-07-30] MEDS: levETIRAcetam 500 MG TAB PO SCH ×2 (09:15→20:22)
[2021-07-30] MEDS: Icosapent Ethyl 1 GM CAPSULE PO SCH ×2 (09:36→20:22)
[2021-07-30] MEDS: HumaLOG 300 UNITS/3 ML VIAL SC PRN (11:34)
[2021-07-30] MEDS: Atorvastatin Calcium 40 MG TAB PO SCH (20:22)
[2021-07-31] MEDS: Gabapentin 100 MG CAP PO SCH ×2 (09:07→21:07)
[2021-07-31] MEDS: Aspirin 81 mg Enteric Coated Tablet PO SCH (09:10)
[2021-07-31] MEDS: Clopidogrel Bisulfate 75 MG TAB PO SCH (09:11)
[2021-07-31] MEDS: levETIRAcetam 500 MG TAB PO SCH ×2 (09:11→21:08)
[2021-07-31] MEDS: Senokot S 8.6-50 MG TAB PO SCH ×2 (09:11→21:07)
[2021-07-31] MEDS: Icosapent Ethyl 1 GM CAPSULE PO SCH ×2 (09:27→21:08)
[2021-07-31] MEDS: HumaLOG 300 UNITS/3 ML VIAL SC PRN (11:22)
[2021-07-31] MEDS ORDERED: Sodium Chloride 0.9% 1,000 ML IV SCH (12:45)
[2021-07-31] MEDS: Atorvastatin Calcium 40 MG TAB PO SCH (21:08)
[2021-08-01 05:26] LABS: Hemoglobin 12.3 g/dL (14.0-18.0); Mean Corpuscular HGB CONC 34.4 g/dL (32.0-36.0); Mean Corpuscular Hemoglobin 34.5 pg (27.0-31.0); Mean Platelet Volume 9.2 fL (7.4-10.4); Platelet Count 109 thou/uL (130-400); RBC Distribution Width 12.3 % (11.5-14.5); Red Blood Cell (RBC) Count 3.55 mill/uL (4.70-6.10); White Blood Cell (WBC) Count 6.5 thou/uL (4.8-10.8)
[2021-08-01 05:32] LABS: Anion Gap 9 mmol/L (10-20); BUN (Urea Nitrogen) 29 mg/dL (8.4-25.7); Calc. Creatinine Clearance 50 mL/min (70-130); Calcium 8.7 mg/dL (7.8-10.44); Carbon Dioxide 24 mmol/L (23-31); Chloride 107 mmol/L (98-107); Glucose 135 mg/dL (83-110); Sodium 136 mmol/L (136-145)
[2021-08-01] MEDS: Senokot S 8.6-50 MG TAB PO SCH (08:40)
[2021-08-01] MEDS: Gabapentin 100 MG CAP PO SCH (08:41)
[2021-08-01] MEDS: Clopidogrel Bisulfate 75 MG TAB PO SCH (08:42)
[2021-08-01] MEDS: Aspirin 81 mg Enteric Coated Tablet PO SCH (08:42)
[2021-08-01] MEDS: Icosapent Ethyl 1 GM CAPSULE PO SCH (08:42)
[2021-08-01] MEDS: levETIRAcetam 500 MG TAB PO SCH (08:42)
[2021-08-01 12:36] VITALS: BP 141/69; TEMP 97.4
== END 2021-08-01 14:25 | DRG 92 ==
LOC: ERS 11:33 → ERHOLD 13:49 → NEURO 16:42 → OBSVTOIN 07-29 09:57
PROVIDERS: ADMIT Internal Medicine; ATTEND Internal Medicine
DX: G25.1 Drug-induced tremor (principal); I50.32 Chronic diastolic (congestive) heart failure; E87.1 Hypo-osmolality and hyponatremia; I25.110 Atherosclerotic heart disease of native coronary artery with unstable angina pectoris; I95.1 Orthostatic hypotension; Z20.822 Contact with and (suspected) exposure to COVID-19; E11.9 Type 2 diabetes mellitus without complications; E78.5 Hyperlipidemia, unspecified; Z77.090 Contact with and (suspected) exposure to asbestos; I11.0 Hypertensive heart disease with heart failure; E11.65 Type 2 diabetes mellitus with hyperglycemia; N40.0 Benign prostatic hyperplasia without lower urinary tract symptoms; T46.995A Adverse effect of other agents primarily affecting the cardiovascular system, initial encounter; I25.5 Ischemic cardiomyopathy; E78.00 Pure hypercholesterolemia, unspecified; Z88.5 Allergy status to narcotic agent; Z79.82 Long term (current) use of aspirin; Z79.899 Other long term (current) drug therapy; Z95.1 Presence of aortocoronary bypass graft; Z87.891 Personal history of nicotine dependence; Z95.810 Presence of automatic (implantable) cardiac defibrillator
CPT/HCPCS: 36415; 36416; 70450; 70551; 71045; 80048; 80053; 81003; 82085; 82550; 82607; 82728; 82746; 83036; 83540; 83550; 83735; 84443; 84484; 85025; 85027; 85046; 93005; 93306; 93880; 96374; 96375; G0378; J0360; J1815; J2405; J7050; U0003; U0005

== ENCOUNTER 2021-11-06 20:52 | Inpatient (IN) | payer MEDICARE ==
[2021-11-06 23:26] VITALS: BMI 23.0
[2021-11-06] MEDS ORDERED: HYDROcodone/Acetaminophen 5/325 mg Tablet PO PRN (23:46)
[2021-11-06] MEDS ORDERED: Bisacodyl 10 MG SUPP PR PRN (23:46)
[2021-11-06] MEDS ORDERED: Ondansetron ODT 4 MG TAB PO PRN (23:46)
[2021-11-06] MEDS ORDERED: Acetaminophen 325 MG TAB PO PRN (23:46)
[2021-11-06] MEDS ORDERED: Senokot S 8.6-50 MG TAB PO PRN (23:46)
[2021-11-07] MEDS: Sodium Chloride 0.9% 1,000 ML IV SCH ×3 (00:27→12:31)
[2021-11-07 01:33] LABS: SARS-CoV-2 NAA Rapid Test Not Detected (NotDetected)
[2021-11-07] MEDS ORDERED: Dextrose 50% Abboject 50 ML SYRINGE SLOW IVP PRN (05:34)
[2021-11-07] MEDS ORDERED: Dextrose 5% in Water 1,000 ML IV PRN (05:34)
[2021-11-07] MEDS ORDERED: Insulin Glargine 30 UNITS/0.3 ML VIAL SC SCH (05:45)
[2021-11-07] MEDS: HumaLOG 300 UNITS/3 ML VIAL SC PRN ×2 (05:55→13:19)
[2021-11-07 06:09] LABS: #Eosinphils 0.1 thou/uL (0.0-0.7); #Lymphocytes 1.8 thou/uL (1.20-3.40); #Monocytes 0.5 thou/uL (0.11-0.59); #Neutrophils 4.4 thou/uL (1.40-6.50); %Basophils 0.4 % (0.0-1.0); %Eosinophils 1.7 % (0.0-10.0); %Lymphocytes 25.8 % (21.0-51.0); %Monocytes 7.8 % (0.0-10.0); %Neutrophils 64.4 % (42.0-75.0); Hemoglobin 13.6 g/dL (14.0-18.0); Mean Corpuscular Hemoglobin 33.6 pg (27.0-31.0); Mean Corpuscular Volume 98.8 fL (78.0-98.0); Platelet Count 110 thou/uL (130-400); RBC Distribution Width 11.3 % (11.5-14.5); Red Blood Cell (RBC) Count 4.03 mill/uL (4.70-6.10); White Blood Cell (WBC) Count 6.9 thou/uL (4.8-10.8)
[2021-11-07 06:24] LABS: Anion Gap 14 mmol/L (10-20); BUN (Urea Nitrogen) 16 mg/dL (8.4-25.7); Calc. Creatinine Clearance 47 mL/min (70-130); Carbon Dioxide 21 mmol/L (23-31); Chloride 103 mmol/L (98-107); Glucose 292 mg/dL (83-110); Potassium 4.5 mmol/L (3.5-5.1); Sodium 133 mmol/L (136-145)
[2021-11-07] MEDS: Enoxaparin Sodium 40 MG/0.4 ML SYRINGE SC SCH (08:42)
[2021-11-07] MEDS: Clopidogrel Bisulfate 75 MG TAB PO SCH (08:43)
[2021-11-07 11:03] LABS: Hemoglobin A1c 11.8 % (4.0-6.0)
[2021-11-07] MEDS: levETIRAcetam 500 MG TAB PO SCH (21:36)
[2021-11-08] MEDS: Sodium Chloride 0.9% 1,000 ML IV SCH ×3 (03:47→11:49)
[2021-11-08] MEDS: HumaLOG 300 UNITS/3 ML VIAL SC PRN ×2 (05:34→11:48)
[2021-11-08] MEDS: levETIRAcetam 500 MG TAB PO SCH (08:45)
[2021-11-08] MEDS: Clopidogrel Bisulfate 75 MG TAB PO SCH (08:45)
[2021-11-08] MEDS: Enoxaparin Sodium 40 MG/0.4 ML SYRINGE SC SCH (08:45)
[2021-11-08] MEDS ORDERED: Insulin Glargine 30 UNITS/0.3 ML VIAL SC SCH ×2 (09:00)
[2021-11-08] MEDS ORDERED: Aspirin 81 mg Enteric Coated Tablet PO SCH (09:00)
[2021-11-08 12:06] VITALS: BP 150/86; TEMP 97.6
[2021-11-08] MEDS ORDERED: Atorvastatin Calcium 40 MG TAB PO SCH (21:00)
== END 2021-11-08 14:55 | disposition home health service (06) | DRG 638 ==
LOC: SURG A 20:52 → OBSVTOIN 11-07 13:05
PROVIDERS: ADMIT Internal Medicine; ATTEND Internal Medicine
DX: E11.65 Type 2 diabetes mellitus with hyperglycemia (principal); I50.32 Chronic diastolic (congestive) heart failure; Z20.822 Contact with and (suspected) exposure to COVID-19; F03.90 Unspecified dementia, unspecified severity, without behavioral disturbance, psychotic disturbance, mood disturbance, and anxiety; I25.10 Atherosclerotic heart disease of native coronary artery without angina pectoris; E78.5 Hyperlipidemia, unspecified; I11.0 Hypertensive heart disease with heart failure; Z88.5 Allergy status to narcotic agent; Z79.82 Long term (current) use of aspirin; Z79.899 Other long term (current) drug therapy; Z95.1 Presence of aortocoronary bypass graft; Z95.810 Presence of automatic (implantable) cardiac defibrillator
CPT/HCPCS: 36415; 36416; 80048; 83036; 85025; J1650; J1815; J7050; U0002

== ENCOUNTER 2021-11-11 10:16 | Inpatient (IN) | payer MEDICARE ==
[2021-11-11] MEDS ORDERED: Aspirin Chewable 81 MG TAB ONE (10:58)
[2021-11-11] MEDS ORDERED: Nitroglycerin 0.4 MG TAB 1 EACH ONE ×2 (10:59→11:00)
[2021-11-11 12:02] LABS: #Eosinphils 0.1 thou/uL (0.0-0.7); #Lymphocytes 1.9 thou/uL (1.20-3.40); #Monocytes 0.5 thou/uL (0.11-0.59); #Neutrophils 3.7 thou/uL (1.40-6.50); %Basophils 0.4 % (0.0-1.0); %Eosinophils 1.8 % (0.0-10.0); %Lymphocytes 30.3 % (21.0-51.0); %Monocytes 7.5 % (0.0-10.0); Hemoglobin 12.8 g/dL (14.0-18.0); Mean Corpuscular HGB CONC 33.6 g/dL (32.0-36.0); Mean Corpuscular Hemoglobin 33.5 pg (27.0-31.0); Mean Corpuscular Volume 99.7 fL (78.0-98.0); Mean Platelet Volume 8.9 fL (7.4-10.4); Platelet Count 116 thou/uL (130-400); RBC Distribution Width 11.5 % (11.5-14.5); Red Blood Cell (RBC) Count 3.83 mill/uL (4.70-6.10); White Blood Cell (WBC) Count 6.1 thou/uL (4.8-10.8)
[2021-11-11 12:30] LABS: Bilirubin Negative (Negative); Blood, Urine Negative (Negative); Clarity Clear (Clear); Glucose, Urine (Dipstick) Greater than 1000 mg/dL (Negative); Ketone, Urine Negative (Negative); Leukocyte Negative Leu/uL (Negative); Nitrite Negative (Negative); Protein, Urine (Dipstick) Negative (Neg-Trace); Specific Gravity, Urine 1.017 (1.002-1.036); Urobilinogen Normal mg/dL (Less than 2); pH, Urine 6.5 (5.0-9.0)
[2021-11-11 12:33] LABS: ALT (SGPT) 21 U/L (8-55); AST (SGOT) 21 U/L (5-34); Albumin 3.1 g/dL (3.4-4.8); Alkaline Phosphatase 81 U/L (40-110); Anion Gap 11 mmol/L (10-20); BUN (Urea Nitrogen) 21 mg/dL (8.4-25.7); Bilirubin, Total 0.9 mg/dL (0.2-1.2); Calc. Creatinine Clearance 0 mL/min (70-130); Calcium 9.2 mg/dL (7.8-10.44); Carbon Dioxide 25 mmol/L (23-31); Chloride 102 mmol/L (98-107); Estimated GFR 56; Globulin 2.9 g/dL (2.4-3.5); Glucose 345 mg/dL (83-110); Lipase 10 U/L (8-78); Potassium 4.6 mmol/L (3.5-5.1); Sodium 133 mmol/L (136-145)
[2021-11-11] MEDS ORDERED: Dextrose 50% Abboject 50 ML SYRINGE SLOW IVP PRN (14:44)
[2021-11-11] MEDS ORDERED: HumaLOG 300 UNITS/3 ML VIAL SC PRN (14:44)
[2021-11-11] MEDS ORDERED: Dextrose 5% in Water 1,000 ML IV PRN (14:44)
[2021-11-11] MEDS ORDERED: Ondansetron PF 4 MG/2 ML Vial IVP PRN (14:45)
[2021-11-11] MEDS ORDERED: Acetaminophen 325 MG TAB PO PRN (14:45)
[2021-11-11] MEDS ORDERED: Senokot S 8.6-50 MG TAB PO PRN (14:45)
[2021-11-11] MEDS ORDERED: Ondansetron ODT 4 MG TAB PO PRN (14:45)
[2021-11-11] MEDS ORDERED: Nitroglycerin 2% Ointment 1 INCH/1 GM Packet TOP SCH ×3 (14:48→21:00)
[2021-11-11 16:29] LABS: Magnesium 1.9 mg/dL (1.6-2.6)
[2021-11-11 17:31] LABS: Troponin I Less than 0.010 ng/mL (< 0.028)
[2021-11-11 17:47] VITALS: BMI 23.3
[2021-11-11] MEDS: HumaLOG 300 UNITS/3 ML VIAL SC PRN (18:27)
[2021-11-11 18:42] LABS: SARS-CoV-2 NAA Rapid Test Not Detected (NotDetected)
[2021-11-11] MEDS ORDERED: Insulin Glargine 30 UNITS/0.3 ML VIAL SC SCH (20:00)
[2021-11-11 20:36] LABS: Troponin I Less than 0.010 ng/mL (< 0.028)
[2021-11-11] MEDS: Atorvastatin Calcium 40 MG TAB PO SCH (20:45)
[2021-11-11] MEDS: Gabapentin 100 MG CAP PO SCH (20:45)
[2021-11-11] MEDS: Icosapent Ethyl 1 GM CAPSULE PO SCH (20:46)
[2021-11-11] MEDS: levETIRAcetam 500 MG TAB PO SCH (20:46)
[2021-11-11] MEDS: Midodrine HCl 5 MG TAB PO SCH (20:46)
[2021-11-11] MEDS ORDERED: Enoxaparin Sodium 40 MG/0.4 ML SYRINGE SC SCH (21:00)
[2021-11-12 05:39] LABS: #Eosinphils 0.2 thou/uL (0.0-0.7); #Lymphocytes 1.7 thou/uL (1.20-3.40); #Monocytes 0.6 thou/uL (0.11-0.59); #Neutrophils 3.8 thou/uL (1.40-6.50); %Eosinophils 2.9 % (0.0-10.0); %Neutrophils 60.1 % (42.0-75.0); Mean Corpuscular HGB CONC 34.4 g/dL (32.0-36.0); Mean Corpuscular Hemoglobin 34.2 pg (27.0-31.0); Mean Corpuscular Volume 99.5 fL (78.0-98.0); Platelet Count 111 thou/uL (130-400); RBC Distribution Width 11.5 % (11.5-14.5); Red Blood Cell (RBC) Count 3.51 mill/uL (4.70-6.10); White Blood Cell (WBC) Count 6.3 thou/uL (4.8-10.8)
[2021-11-12 05:45] LABS: Anion Gap 9 mmol/L (10-20); BUN (Urea Nitrogen) 22 mg/dL (8.4-25.7); Calc. Creatinine Clearance 49 mL/min (70-130); Calcium 9.1 mg/dL (7.8-10.44); Carbon Dioxide 27 mmol/L (23-31); Chloride 105 mmol/L (98-107); Estimated GFR 55; Glucose 192 mg/dL (83-110); Potassium 4.2 mmol/L (3.5-5.1); Sodium 137 mmol/L (136-145)
[2021-11-12] MEDS: HumaLOG 300 UNITS/3 ML VIAL SC PRN ×3 (06:47→17:06)
[2021-11-12] MEDS: Clopidogrel Bisulfate 75 MG TAB PO SCH (09:05)
[2021-11-12] MEDS: Aspirin 81 mg Enteric Coated Tablet PO SCH (09:05)
[2021-11-12] MEDS: Gabapentin 100 MG CAP PO SCH ×2 (09:05→20:32)
[2021-11-12] MEDS: Enoxaparin Sodium 80 MG/0.8 ML SYRINGE SC SCH ×2 (09:05→20:32)
[2021-11-12] MEDS: Insulin Glargine 30 UNITS/0.3 ML VIAL SC SCH (09:06)
[2021-11-12] MEDS: Icosapent Ethyl 1 GM CAPSULE PO SCH ×2 (09:06→20:40)
[2021-11-12] MEDS: levETIRAcetam 500 MG TAB PO SCH ×2 (09:07→20:33)
[2021-11-12] MEDS: Midodrine HCl 5 MG TAB PO SCH ×2 (09:07→20:33)
[2021-11-12] MEDS: Nitroglycerin 2% Ointment 1 INCH/1 GM Packet TOP SCH ×2 (09:08→20:40)
[2021-11-12] MEDS: Atorvastatin Calcium 40 MG TAB PO SCH (20:32)
[2021-11-13 05:13] LABS: #Eosinphils 0.1 thou/uL (0.0-0.7); #Lymphocytes 1.9 thou/uL (1.20-3.40); #Monocytes 0.6 thou/uL (0.11-0.59); #Neutrophils 3.9 thou/uL (1.40-6.50); %Basophils 0.2 % (0.0-1.0); %Eosinophils 1.9 % (0.0-10.0); %Lymphocytes 29.7 % (21.0-51.0); %Monocytes 8.8 % (0.0-10.0); %Neutrophils 59.4 % (42.0-75.0); Hemoglobin 13.4 g/dL (14.0-18.0); Mean Corpuscular Hemoglobin 33.6 pg (27.0-31.0); Mean Platelet Volume 9.5 fL (7.4-10.4); Platelet Count 101 thou/uL (130-400); RBC Distribution Width 11.8 % (11.5-14.5); White Blood Cell (WBC) Count 6.5 thou/uL (4.8-10.8)
[2021-11-13 05:21] LABS: Anion Gap 15 mmol/L (10-20); BUN (Urea Nitrogen) 25 mg/dL (8.4-25.7); Calc. Creatinine Clearance 43 mL/min (70-130); Calcium 9.3 mg/dL (7.8-10.44); Carbon Dioxide 20 mmol/L (23-31); Chloride 106 mmol/L (98-107); Estimated GFR 46; Glucose 219 mg/dL (83-110); Potassium 5.9 mmol/L (3.5-5.1); Sodium 135 mmol/L (136-145)
[2021-11-13] MEDS: HumaLOG 300 UNITS/3 ML VIAL SC PRN ×2 (06:35→18:24)
[2021-11-13] MEDS: Gabapentin 100 MG CAP PO SCH ×2 (09:26→20:12)
[2021-11-13] MEDS: Aspirin 81 mg Enteric Coated Tablet PO SCH (09:27)
[2021-11-13] MEDS: Clopidogrel Bisulfate 75 MG TAB PO SCH (09:27)
[2021-11-13] MEDS: Enoxaparin Sodium 80 MG/0.8 ML SYRINGE SC SCH ×2 (09:27→20:08)
[2021-11-13] MEDS: Midodrine HCl 5 MG TAB PO SCH ×2 (09:27→20:11)
[2021-11-13] MEDS: Insulin Glargine 30 UNITS/0.3 ML VIAL SC SCH (09:28)
[2021-11-13] MEDS: levETIRAcetam 500 MG TAB PO SCH ×2 (09:28→20:10)
[2021-11-13] MEDS: Nitroglycerin 2% Ointment 1 INCH/1 GM Packet TOP SCH ×2 (09:30→20:12)
[2021-11-13] MEDS: Icosapent Ethyl 1 GM CAPSULE PO SCH ×2 (09:40→20:16)
[2021-11-13] MEDS ORDERED: Dextrose 50% Abboject 50 ML SYRINGE SLOW IVP PRN (13:18)
[2021-11-13] MEDS ORDERED: Dextrose 5% in Water 1,000 ML IV PRN (13:18)
[2021-11-13] MEDS ORDERED: Insulin Regular 300 UNITS/3 ML VIAL SC PRN (13:18)
[2021-11-13] MEDS: Atorvastatin Calcium 40 MG TAB PO SCH (20:10)
[2021-11-14] MEDS: HumaLOG 300 UNITS/3 ML VIAL SC PRN (06:27)
[2021-11-14] MEDS: Midodrine HCl 5 MG TAB PO SCH (09:54)
[2021-11-14] MEDS: Aspirin 81 mg Enteric Coated Tablet PO SCH (09:54)
[2021-11-14] MEDS: levETIRAcetam 500 MG TAB PO SCH (09:54)
[2021-11-14] MEDS: Gabapentin 100 MG CAP PO SCH (09:56)
[2021-11-14] MEDS: Clopidogrel Bisulfate 75 MG TAB PO SCH (09:57)
[2021-11-14] MEDS: Nitroglycerin 2% Ointment 1 INCH/1 GM Packet TOP SCH (09:57)
[2021-11-14] MEDS: Enoxaparin Sodium 80 MG/0.8 ML SYRINGE SC SCH (09:57)
[2021-11-14] MEDS: Insulin Glargine 30 UNITS/0.3 ML VIAL SC SCH (09:57)
[2021-11-14 10:15] LABS: Anion Gap 12 mmol/L (10-20); BUN (Urea Nitrogen) 22 mg/dL (8.4-25.7); Calc. Creatinine Clearance 49 mL/min (70-130); Carbon Dioxide 27 mmol/L (23-31); Chloride 102 mmol/L (98-107); Estimated GFR 56; Glucose 244 mg/dL (83-110); Potassium 4.3 mmol/L (3.5-5.1); Sodium 137 mmol/L (136-145)
[2021-11-14] MEDS ORDERED: Polyethylene Glycol 3350 17 GM Packet PO PRN (11:10)
[2021-11-14] MEDS: Icosapent Ethyl 1 GM CAPSULE PO SCH (11:36)
[2021-11-14 12:28] VITALS: BP 119/56; TEMP 97.4
== END 2021-11-14 15:35 | disposition home or self-care (01) | DRG 303 ==
LOC: ERS 10:16 → 2SW 15:52 → OBSVTOIN 11-12 08:55
PROVIDERS: ADMIT Hospitalist; ATTEND Internal Medicine
PROC: 4B09XSZ Measurement of Respiratory Pacemaker, External Approach (ICD-10-PCS; principal; 2021-11-12)
DX: I25.110 Atherosclerotic heart disease of native coronary artery with unstable angina pectoris (principal); E87.1 Hypo-osmolality and hyponatremia; I50.22 Chronic systolic (congestive) heart failure; I95.1 Orthostatic hypotension; Z20.822 Contact with and (suspected) exposure to COVID-19; E11.65 Type 2 diabetes mellitus with hyperglycemia; D64.9 Anemia, unspecified; D69.6 Thrombocytopenia, unspecified; I25.5 Ischemic cardiomyopathy; G25.0 Essential tremor; I11.0 Hypertensive heart disease with heart failure; E87.5 Hyperkalemia; E78.5 Hyperlipidemia, unspecified; I25.2 Old myocardial infarction; Z95.810 Presence of automatic (implantable) cardiac defibrillator; Z95.5 Presence of coronary angioplasty implant and graft; Z90.49 Acquired absence of other specified parts of digestive tract; Z88.5 Allergy status to narcotic agent
CPT/HCPCS: 36415; 36416; 71045; 74176; 80048; 80053; 81003; 83690; 83735; 84484; 85025; 93005; J1650; J1815; Q0162; U0002

== ENCOUNTER 2021-12-07 17:25 | Inpatient (IN) | payer MEDICARE ==
[2021-12-07 18:05] LABS: #Eosinphils 0.1 thou/uL (0.0-0.7); #Lymphocytes 1.2 thou/uL (1.20-3.40); #Monocytes 0.7 thou/uL (0.11-0.59); #Neutrophils 6.6 thou/uL (1.40-6.50); %Basophils 0.1 % (0.0-1.0); %Eosinophils 1.1 % (0.0-10.0); %Lymphocytes 13.5 % (21.0-51.0); %Monocytes 8.6 % (0.0-10.0); %Neutrophils 76.6 % (42.0-75.0); Hemoglobin 11.2 g/dL (14.0-18.0); Mean Corpuscular HGB CONC 33.2 g/dL (32.0-36.0); Mean Corpuscular Hemoglobin 33.8 pg (27.0-31.0); Mean Platelet Volume 10.1 fL (7.4-10.4); Platelet Count 126 thou/uL (130-400); RBC Distribution Width 12.6 % (11.5-14.5); Red Blood Cell (RBC) Count 3.31 mill/uL (4.70-6.10); White Blood Cell (WBC) Count 8.6 thou/uL (4.8-10.8)
[2021-12-07 18:28] LABS: ALT (SGPT) 13 U/L (8-55); AST (SGOT) 18 U/L (5-34); Albumin 2.9 g/dL (3.4-4.8); Alkaline Phosphatase 75 U/L (40-110); Anion Gap 10 mmol/L (10-20); BUN (Urea Nitrogen) 24 mg/dL (8.4-25.7); Calc. Creatinine Clearance 0 mL/min (70-130); Carbon Dioxide 22 mmol/L (23-31); Chloride 106 mmol/L (98-107); Estimated GFR 57; Globulin 2.3 g/dL (2.4-3.5); Glucose 80 mg/dL (83-110); Lipase 19 U/L (8-78); Potassium 4.4 mmol/L (3.5-5.1); Protein, Total 5.2 g/dL (5.8-8.1); Sodium 134 mmol/L (136-145)
[2021-12-07 19:23] LABS: Bilirubin Negative (Negative); Blood, Urine Negative (Negative); Clarity Clear (Clear); Glucose, Urine (Dipstick) Greater than 1000 mg/dL (Negative); Ketone, Urine Negative (Negative); Leukocyte 500 Leu/uL (Negative); Nitrite Negative (Negative); Protein, Urine (Dipstick) Negative (Neg-Trace); RBC/HPF 0-3 HPF (0-3); Specific Gravity, Urine 1.021 (1.002-1.036); Squamous Epithelial 0-3 HPF (0-3); WBC/HPF Greater than 50 HPF (0-3); pH, Urine 5.5 (5.0-9.0)
[2021-12-07 19:38] LABS: Bacteria/HPF 2+ HPF (None Seen)
[2021-12-07] MEDS ORDERED: cefTRIAXone\\ROCEPHIN 2 GM VIAL ONE (22:57)
[2021-12-08 00:16] LABS: SARS-CoV-2 NAA Rapid Test Not Detected (NotDetected)
[2021-12-08] MEDS ORDERED: Ondansetron PF 4 MG/2 ML Vial IVP PRN (10:40)
[2021-12-08] MEDS ORDERED: HumaLOG 300 UNITS/3 ML VIAL SC PRN (10:40)
[2021-12-08] MEDS ORDERED: Dextrose 5% in Water 1,000 ML IV PRN (10:40)
[2021-12-08] MEDS ORDERED: hydrALAZINE 20 MG/ML VIAL SLOW IVP PRN (10:40)
[2021-12-08] MEDS ORDERED: Ondansetron ODT 4 MG TAB PO PRN (10:40)
[2021-12-08] MEDS ORDERED: Dextrose 50% Abboject 50 ML SYRINGE SLOW IVP PRN (10:40)
[2021-12-08] MEDS ORDERED: cefTRIAXone\\ROCEPHIN 1 GM in Sodium Chloride 0.9% 100 ML IVPB SCH (10:45)
[2021-12-08] MEDS ORDERED: cefTRIAXone\\ROCEPHIN 1 GM VIAL ONE (11:18)
[2021-12-08 12:00] VITALS: BMI 23.3
[2021-12-08] MEDS: Ciprofloxacin 0.3% Ophth Soln 2.5 ml Bottle EA EYE SCH ×3 (12:54→21:06)
[2021-12-08] MEDS: Gabapentin 100 MG CAP PO SCH (20:34)
[2021-12-08] MEDS: Famotidine 20 MG TAB PO SCH (20:34)
[2021-12-08] MEDS: Midodrine HCl 5 MG TAB PO SCH (20:34)
[2021-12-08] MEDS: levETIRAcetam 500 MG TAB PO SCH (20:34)
[2021-12-08] MEDS: Icosapent Ethyl 1 GM CAPSULE PO SCH (20:36)
[2021-12-08] MEDS: cefTRIAXone\\ROCEPHIN 1 GM in Sodium Chloride 0.9% 100 ML IVPB SCH (23:45)
[2021-12-09] MEDS: Ciprofloxacin 0.3% Ophth Soln 2.5 ml Bottle EA EYE SCH ×6 (05:50→21:31)
[2021-12-09 06:20] LABS: #Eosinphils 0.1 thou/uL (0.0-0.7); #Lymphocytes 0.6 thou/uL (1.20-3.40); #Monocytes 0.6 thou/uL (0.11-0.59); #Neutrophils 4.8 thou/uL (1.40-6.50); %Basophils 0.1 % (0.0-1.0); %Eosinophils 2.3 % (0.0-10.0); %Lymphocytes 10.5 % (21.0-51.0); %Monocytes 9.4 % (0.0-10.0); %Neutrophils 77.7 % (42.0-75.0); Hemoglobin 12.9 g/dL (14.0-18.0); Mean Corpuscular HGB CONC 33.5 g/dL (32.0-36.0); Mean Corpuscular Hemoglobin 33.6 pg (27.0-31.0); Mean Platelet Volume 8.1 fL (7.4-10.4); Platelet Count 127 thou/uL (130-400); RBC Distribution Width 12.6 % (11.5-14.5); Red Blood Cell (RBC) Count 3.83 mill/uL (4.70-6.10); White Blood Cell (WBC) Count 6.1 thou/uL (4.8-10.8)
[2021-12-09 06:50] LABS: ALT (SGPT) 14 U/L (8-55); AST (SGOT) 16 U/L (5-34); Albumin 3.1 g/dL (3.4-4.8); Alkaline Phosphatase 77 U/L (40-110); Anion Gap 11 mmol/L (10-20); BUN (Urea Nitrogen) 19 mg/dL (8.4-25.7); Bilirubin, Total 0.8 mg/dL (0.2-1.2); Calc. Creatinine Clearance 51 mL/min (70-130); Calcium 9.1 mg/dL (7.8-10.44); Carbon Dioxide 24 mmol/L (23-31); Chloride 106 mmol/L (98-107); Estimated GFR 57; Glucose 88 mg/dL (83-110); Potassium 4.1 mmol/L (3.5-5.1); Protein, Total 6.1 g/dL (5.8-8.1); Sodium 137 mmol/L (136-145)
[2021-12-09] MEDS: Icosapent Ethyl 1 GM CAPSULE PO SCH ×2 (08:30→20:39)
[2021-12-09] MEDS: Gabapentin 100 MG CAP PO SCH ×2 (08:31→20:38)
[2021-12-09] MEDS: Midodrine HCl 5 MG TAB PO SCH ×2 (08:31→20:39)
[2021-12-09] MEDS: Aspirin 81 mg Enteric Coated Tablet PO SCH (08:31)
[2021-12-09] MEDS: Famotidine 20 MG TAB PO SCH ×2 (08:32→20:38)
[2021-12-09] MEDS: Clopidogrel Bisulfate 75 MG TAB PO SCH (08:32)
[2021-12-09] MEDS: levETIRAcetam 500 MG TAB PO SCH ×2 (08:32→20:38)
[2021-12-09] MEDS: Insulin Glargine 30 UNITS/0.3 ML VIAL SC SCH (10:19)
[2021-12-09] MEDS: HumaLOG 300 UNITS/3 ML VIAL SC PRN (12:41)
[2021-12-09] MEDS: Acetaminophen 500 MG TAB PO PRN (12:47)
[2021-12-09] MEDS: cefTRIAXone\\ROCEPHIN 1 GM in Sodium Chloride 0.9% 100 ML IVPB SCH (23:52)
[2021-12-10] MEDS: Ciprofloxacin 0.3% Ophth Soln 2.5 ml Bottle EA EYE SCH ×5 (06:13→21:11)
[2021-12-10] MEDS: Clopidogrel Bisulfate 75 MG TAB PO SCH (09:06)
[2021-12-10] MEDS: Gabapentin 100 MG CAP PO SCH ×2 (09:06→21:08)
[2021-12-10] MEDS: Famotidine 20 MG TAB PO SCH ×2 (09:06→21:08)
[2021-12-10] MEDS: levETIRAcetam 500 MG TAB PO SCH ×2 (09:06→21:07)
[2021-12-10] MEDS: Icosapent Ethyl 1 GM CAPSULE PO SCH ×2 (09:06→21:08)
[2021-12-10] MEDS: Aspirin 81 mg Enteric Coated Tablet PO SCH (09:07)
[2021-12-10] MEDS: Insulin Glargine 30 UNITS/0.3 ML VIAL SC SCH (09:07)
[2021-12-10] MEDS: Midodrine HCl 5 MG TAB PO SCH ×2 (09:09→21:07)
[2021-12-10] MEDS: HumaLOG 300 UNITS/3 ML VIAL SC PRN (17:27)
[2021-12-10] MEDS: cefTRIAXone\\ROCEPHIN 1 GM in Sodium Chloride 0.9% 100 ML IVPB SCH (23:35)
[2021-12-11] MEDS: Ciprofloxacin 0.3% Ophth Soln 2.5 ml Bottle EA EYE SCH ×5 (05:44→21:10)
[2021-12-11] MEDS: Aspirin 81 mg Enteric Coated Tablet PO SCH (09:20)
[2021-12-11] MEDS: Clopidogrel Bisulfate 75 MG TAB PO SCH (09:20)
[2021-12-11] MEDS: Gabapentin 100 MG CAP PO SCH ×2 (09:21→20:06)
[2021-12-11] MEDS: Famotidine 20 MG TAB PO SCH ×2 (09:21→20:06)
[2021-12-11] MEDS: Midodrine HCl 5 MG TAB PO SCH ×2 (09:22→20:05)
[2021-12-11] MEDS: Icosapent Ethyl 1 GM CAPSULE PO SCH ×2 (09:22→20:05)
[2021-12-11] MEDS: Insulin Glargine 30 UNITS/0.3 ML VIAL SC SCH (09:22)
[2021-12-11] MEDS: levETIRAcetam 500 MG TAB PO SCH ×2 (09:22→20:05)
[2021-12-11] MEDS: cefTRIAXone\\ROCEPHIN 1 GM in Sodium Chloride 0.9% 100 ML IVPB SCH (23:55)
[2021-12-12] MEDS: Ciprofloxacin 0.3% Ophth Soln 2.5 ml Bottle EA EYE SCH ×5 (05:51→20:44)
[2021-12-12] MEDS: Midodrine HCl 5 MG TAB PO SCH ×2 (09:28→20:42)
[2021-12-12] MEDS: Icosapent Ethyl 1 GM CAPSULE PO SCH ×2 (09:28→20:43)
[2021-12-12] MEDS: Clopidogrel Bisulfate 75 MG TAB PO SCH (09:30)
[2021-12-12] MEDS: Famotidine 20 MG TAB PO SCH ×2 (09:30→20:43)
[2021-12-12] MEDS: Aspirin 81 mg Enteric Coated Tablet PO SCH (09:30)
[2021-12-12] MEDS: Gabapentin 100 MG CAP PO SCH ×2 (09:30→20:43)
[2021-12-12] MEDS: levETIRAcetam 500 MG TAB PO SCH ×2 (09:30→20:42)
[2021-12-12] MEDS: Insulin Glargine 30 UNITS/0.3 ML VIAL SC SCH (09:31)
[2021-12-12] MEDS: Docusate 100 MG CAP PO SCH (20:42)
[2021-12-12] MEDS: Acetaminophen 500 MG TAB PO PRN (20:44)
[2021-12-13] MEDS: Ciprofloxacin 0.3% Ophth Soln 2.5 ml Bottle EA EYE SCH ×5 (05:36→19:50)
[2021-12-13] MEDS: Icosapent Ethyl 1 GM CAPSULE PO SCH ×2 (09:50→19:48)
[2021-12-13] MEDS: Insulin Glargine 30 UNITS/0.3 ML VIAL SC SCH (09:50)
[2021-12-13] MEDS: Midodrine HCl 5 MG TAB PO SCH ×2 (09:51→19:49)
[2021-12-13] MEDS: Gabapentin 100 MG CAP PO SCH ×2 (09:52→19:50)
[2021-12-13] MEDS: Famotidine 20 MG TAB PO SCH ×2 (09:52→19:49)
[2021-12-13] MEDS: levETIRAcetam 500 MG TAB PO SCH ×2 (09:52→19:49)
[2021-12-13] MEDS: Clopidogrel Bisulfate 75 MG TAB PO SCH (09:52)
[2021-12-13] MEDS: Aspirin 81 mg Enteric Coated Tablet PO SCH (09:52)
[2021-12-13] MEDS: Docusate 100 MG CAP PO SCH ×2 (09:57→19:48)
[2021-12-13] MEDS: Acetaminophen 500 MG TAB PO PRN (19:51)
[2021-12-14] MEDS: Ciprofloxacin 0.3% Ophth Soln 2.5 ml Bottle EA EYE SCH ×5 (06:18→21:01)
[2021-12-14] MEDS: Clopidogrel Bisulfate 75 MG TAB PO SCH (08:26)
[2021-12-14] MEDS: Midodrine HCl 5 MG TAB PO SCH ×2 (08:26→20:59)
[2021-12-14] MEDS: Gabapentin 100 MG CAP PO SCH ×2 (08:26→21:06)
[2021-12-14] MEDS: levETIRAcetam 500 MG TAB PO SCH ×2 (08:27→21:00)
[2021-12-14] MEDS: Aspirin 81 mg Enteric Coated Tablet PO SCH (08:27)
[2021-12-14] MEDS: Docusate 100 MG CAP PO SCH ×2 (08:27→20:59)
[2021-12-14] MEDS: Famotidine 20 MG TAB PO SCH ×2 (08:27→21:00)
[2021-12-14] MEDS: Insulin Glargine 30 UNITS/0.3 ML VIAL SC SCH (08:28)
[2021-12-14] MEDS: Icosapent Ethyl 1 GM CAPSULE PO SCH ×2 (08:28→21:00)
[2021-12-14] MEDS: HumaLOG 300 UNITS/3 ML VIAL SC PRN (12:19)
[2021-12-15] MEDS: Ciprofloxacin 0.3% Ophth Soln 2.5 ml Bottle EA EYE SCH ×5 (07:17→20:40)
[2021-12-15] MEDS: Clopidogrel Bisulfate 75 MG TAB PO SCH (08:05)
[2021-12-15] MEDS: Midodrine HCl 5 MG TAB PO SCH ×2 (08:05→20:38)
[2021-12-15] MEDS: Gabapentin 100 MG CAP PO SCH ×2 (08:05→20:38)
[2021-12-15] MEDS: Icosapent Ethyl 1 GM CAPSULE PO SCH ×2 (08:06→20:38)
[2021-12-15] MEDS: Aspirin 81 mg Enteric Coated Tablet PO SCH (08:06)
[2021-12-15] MEDS: levETIRAcetam 500 MG TAB PO SCH ×2 (08:06→20:38)
[2021-12-15] MEDS: Famotidine 20 MG TAB PO SCH ×2 (08:06→20:38)
[2021-12-15] MEDS: Docusate 100 MG CAP PO SCH ×2 (08:06→20:38)
[2021-12-15] MEDS: Insulin Glargine 30 UNITS/0.3 ML VIAL SC SCH (08:07)
[2021-12-15] MEDS: HumaLOG 300 UNITS/3 ML VIAL SC PRN (16:14)
[2021-12-16] MEDS: Ciprofloxacin 0.3% Ophth Soln 2.5 ml Bottle EA EYE SCH ×3 (06:20→13:40)
[2021-12-16 08:24] VITALS: BP 147/78; TEMP 97.7
[2021-12-16] MEDS: Gabapentin 100 MG CAP PO SCH (08:48)
[2021-12-16] MEDS: Aspirin 81 mg Enteric Coated Tablet PO SCH (08:48)
[2021-12-16] MEDS: Famotidine 20 MG TAB PO SCH (08:48)
[2021-12-16] MEDS: Icosapent Ethyl 1 GM CAPSULE PO SCH (08:48)
[2021-12-16] MEDS: levETIRAcetam 500 MG TAB PO SCH (08:49)
[2021-12-16] MEDS: Clopidogrel Bisulfate 75 MG TAB PO SCH (08:49)
[2021-12-16] MEDS: Midodrine HCl 5 MG TAB PO SCH (08:49)
[2021-12-16] MEDS: Insulin Glargine 30 UNITS/0.3 ML VIAL SC SCH (08:49)
[2021-12-16] MEDS: Docusate 100 MG CAP PO SCH (08:49)
[2021-12-16] MEDS: HumaLOG 300 UNITS/3 ML VIAL SC PRN (11:52)
== END 2021-12-16 16:29 | disposition home or self-care (01) | DRG 552 ==
LOC: ERS 17:25 → ERHOLD 23:14 → T4-A 12-08 11:35
PROVIDERS: ADMIT Internal Medicine; ATTEND Internal Medicine
DX: M48.02 Spinal stenosis, cervical region (principal); N39.0 Urinary tract infection, site not specified; I13.0 Hypertensive heart and chronic kidney disease with heart failure and stage 1 through stage 4 chronic kidney disease, or unspecified chronic kidney disease; Z20.822 Contact with and (suspected) exposure to COVID-19; I25.10 Atherosclerotic heart disease of native coronary artery without angina pectoris; E78.5 Hyperlipidemia, unspecified; I10 Essential (primary) hypertension; N40.0 Benign prostatic hyperplasia without lower urinary tract symptoms; H10.31 Unspecified acute conjunctivitis, right eye; I95.1 Orthostatic hypotension; G25.0 Essential tremor; E11.22 Type 2 diabetes mellitus with diabetic chronic kidney disease; N18.30 Chronic kidney disease, stage 3 unspecified; R29.6 Repeated falls; I65.22 Occlusion and stenosis of left carotid artery; I25.5 Ischemic cardiomyopathy; I50.9 Heart failure, unspecified; Z90.49 Acquired absence of other specified parts of digestive tract; I25.2 Old myocardial infarction; Z95.1 Presence of aortocoronary bypass graft; Z95.810 Presence of automatic (implantable) cardiac defibrillator; Z88.5 Allergy status to narcotic agent; Z79.01 Long term (current) use of anticoagulants; Z79.82 Long term (current) use of aspirin; Z79.899 Other long term (current) drug therapy; Z79.4 Long term (current) use of insulin
CPT/HCPCS: 36415; 36416; 70450; 71045; 72125; 80053; 81001; 83690; 84484; 85025; 93005; 94760; 96365; 97139; J0360; J0696; J1815; J3490; U0002; U0003; U0005

== ENCOUNTER 2021-12-22 10:43 | Inpatient (IN) | payer MEDICARE ==
[2021-12-22 11:47] LABS: #Basophils 0.1 thou/uL (0.0-0.2); #Eosinphils 0.2 thou/uL (0.0-0.7); #Lymphocytes 1.8 thou/uL (1.20-3.40); #Monocytes 0.6 thou/uL (0.11-0.59); #Neutrophils 5.2 thou/uL (1.40-6.50); %Basophils 1.3 % (0.0-1.0); %Lymphocytes 23.1 % (21.0-51.0); %Monocytes 8.1 % (0.0-10.0); %Neutrophils 65.5 % (42.0-75.0); Hemoglobin 11.9 g/dL (14.0-18.0); Mean Corpuscular HGB CONC 32.8 g/dL (32.0-36.0); Mean Corpuscular Hemoglobin 33.4 pg (27.0-31.0); Platelet Count 150 thou/uL (130-400); RBC Distribution Width 12.9 % (11.5-14.5); Red Blood Cell (RBC) Count 3.56 mill/uL (4.70-6.10)
[2021-12-22 11:59] LABS: Bilirubin Negative (Negative); Blood, Urine Negative (Negative); Clarity Clear (Clear); Glucose, Urine (Dipstick) Greater than 1000 mg/dL (Negative); Ketone, Urine Negative (Negative); Leukocyte Negative Leu/uL (Negative); Nitrite Negative (Negative); Protein, Urine (Dipstick) Negative (Neg-Trace); Specific Gravity, Urine 1.023 (1.002-1.036); Urobilinogen Normal mg/dL (Less than 2); pH, Urine 6.5 (5.0-9.0)
[2021-12-22 12:00] LABS: ALT (SGPT) 19 U/L (8-55); AST (SGOT) 17 U/L (5-34); Albumin 3.1 g/dL (3.4-4.8); Alkaline Phosphatase 69 U/L (40-110); Anion Gap 13 mmol/L (10-20); BUN (Urea Nitrogen) 29 mg/dL (8.4-25.7); Bilirubin, Total 0.6 mg/dL (0.2-1.2); CK (CPK) 18 U/L (30-200); Calc. Creatinine Clearance 0 mL/min (70-130); Carbon Dioxide 23 mmol/L (23-31); Chloride 105 mmol/L (98-107); Estimated GFR 57; Globulin 2.7 g/dL (2.4-3.5); Glucose 158 mg/dL (83-110); Magnesium 2.1 mg/dL (1.6-2.6); Potassium 5.2 mmol/L (3.5-5.1); Protein, Total 5.8 g/dL (5.8-8.1); Sodium 136 mmol/L (136-145)
[2021-12-22] MEDS ORDERED: Dextrose 5% in Water 1,000 ML IV PRN (15:31)
[2021-12-22] MEDS ORDERED: Dextrose 50% Abboject 50 ML SYRINGE SLOW IVP PRN (15:31)
[2021-12-22] MEDS ORDERED: Acetaminophen 325 MG TAB PO PRN (15:33)
[2021-12-22 17:01] VITALS: BMI 23.8
[2021-12-22 17:13] LABS: Iron 70 ug/dL (65-175); Iron Binding Capacity, Total 190 mcg/dL (261-462)
[2021-12-22] MEDS: Famotidine 20 MG TAB PO SCH (22:15)
[2021-12-22] MEDS: Atorvastatin Calcium 40 MG TAB PO SCH (22:15)
[2021-12-22] MEDS: Gabapentin 100 MG CAP PO SCH (22:15)
[2021-12-22] MEDS: levETIRAcetam 500 MG TAB PO SCH (22:16)
[2021-12-22] MEDS: Midodrine HCl 5 MG TAB PO SCH (22:16)
[2021-12-22] MEDS: Insulin Glargine 30 UNITS/0.3 ML VIAL SC SCH (22:32)
[2021-12-23 07:41] LABS: #Eosinphils 0.2 thou/uL (0.0-0.7); #Lymphocytes 1.8 thou/uL (1.20-3.40); #Monocytes 0.5 thou/uL (0.11-0.59); #Neutrophils 5.3 thou/uL (1.40-6.50); %Basophils 0.1 % (0.0-1.0); %Eosinophils 2.3 % (0.0-10.0); %Lymphocytes 22.7 % (21.0-51.0); %Monocytes 6.7 % (0.0-10.0); %Neutrophils 68.2 % (42.0-75.0); Hemoglobin 12.7 g/dL (14.0-18.0); Mean Corpuscular HGB CONC 33.2 g/dL (32.0-36.0); Mean Platelet Volume 8.2 fL (7.4-10.4); Platelet Count 147 thou/uL (130-400); Red Blood Cell (RBC) Count 3.74 mill/uL (4.70-6.10); White Blood Cell (WBC) Count 7.8 thou/uL (4.8-10.8)
[2021-12-23 08:05] LABS: Anion Gap 10 mmol/L (10-20); BUN (Urea Nitrogen) 25 mg/dL (8.4-25.7); Calc. Creatinine Clearance 54 mL/min (70-130); Calcium 9.1 mg/dL (7.8-10.44); Carbon Dioxide 28 mmol/L (23-31); Chloride 103 mmol/L (98-107); Estimated GFR 61; Glucose 105 mg/dL (83-110); Potassium 4.4 mmol/L (3.5-5.1); Sodium 137 mmol/L (136-145)
[2021-12-23] MEDS: Enoxaparin Sodium 40 MG/0.4 ML SYRINGE SC SCH (09:02)
[2021-12-23] MEDS: levETIRAcetam 500 MG TAB PO SCH ×2 (09:02→21:47)
[2021-12-23] MEDS: Aspirin 81 mg Enteric Coated Tablet PO SCH (09:03)
[2021-12-23] MEDS: Famotidine 20 MG TAB PO SCH ×2 (09:03→21:47)
[2021-12-23] MEDS: Gabapentin 100 MG CAP PO SCH ×2 (09:03→21:45)
[2021-12-23] MEDS: Clopidogrel Bisulfate 75 MG TAB PO SCH (09:03)
[2021-12-23] MEDS: Midodrine HCl 5 MG TAB PO SCH ×3 (09:07→21:46)
[2021-12-23] MEDS: Atorvastatin Calcium 40 MG TAB PO SCH (21:46)
[2021-12-23] MEDS: Insulin Glargine 30 UNITS/0.3 ML VIAL SC SCH (21:47)
[2021-12-23] MEDS: Icosapent Ethyl 1 GM CAPSULE PO SCH (21:47)
[2021-12-24] MEDS: Enoxaparin Sodium 40 MG/0.4 ML SYRINGE SC SCH (08:53)
[2021-12-24] MEDS: Gabapentin 100 MG CAP PO SCH ×2 (08:53→20:25)
[2021-12-24] MEDS: Aspirin 81 mg Enteric Coated Tablet PO SCH (08:54)
[2021-12-24] MEDS: Clopidogrel Bisulfate 75 MG TAB PO SCH (08:54)
[2021-12-24] MEDS: Famotidine 20 MG TAB PO SCH ×2 (08:54→20:24)
[2021-12-24] MEDS: levETIRAcetam 500 MG TAB PO SCH ×2 (08:54→20:25)
[2021-12-24] MEDS: Icosapent Ethyl 1 GM CAPSULE PO SCH ×2 (08:54→20:25)
[2021-12-24] MEDS: Midodrine HCl 5 MG TAB PO SCH ×2 (08:54→20:25)
[2021-12-24] MEDS: Senokot S 8.6-50 MG TAB PO PRN (17:30)
[2021-12-24] MEDS: Atorvastatin Calcium 40 MG TAB PO SCH (20:24)
[2021-12-24] MEDS: Insulin Glargine 30 UNITS/0.3 ML VIAL SC SCH (20:32)
[2021-12-25] MEDS: Senokot S 8.6-50 MG TAB PO PRN (08:20)
[2021-12-25] MEDS: Gabapentin 100 MG CAP PO SCH ×2 (08:20→20:58)
[2021-12-25] MEDS: levETIRAcetam 500 MG TAB PO SCH ×2 (08:20→20:58)
[2021-12-25] MEDS: Icosapent Ethyl 1 GM CAPSULE PO SCH ×2 (08:20→20:58)
[2021-12-25] MEDS: Enoxaparin Sodium 40 MG/0.4 ML SYRINGE SC SCH (08:20)
[2021-12-25] MEDS: Clopidogrel Bisulfate 75 MG TAB PO SCH (08:21)
[2021-12-25] MEDS: Midodrine HCl 5 MG TAB PO SCH ×2 (08:21→20:58)
[2021-12-25] MEDS: Famotidine 20 MG TAB PO SCH ×2 (08:21→20:57)
[2021-12-25] MEDS: Aspirin 81 mg Enteric Coated Tablet PO SCH (08:22)
[2021-12-25] MEDS ORDERED: Polyethylene Glycol 3350 17 GM Packet PO SCH (12:00)
[2021-12-25] MEDS: Atorvastatin Calcium 40 MG TAB PO SCH (20:57)
[2021-12-25] MEDS: Insulin Glargine 30 UNITS/0.3 ML VIAL SC SCH (21:01)
[2021-12-26] MEDS: Aspirin 81 mg Enteric Coated Tablet PO SCH (08:15)
[2021-12-26] MEDS: Famotidine 20 MG TAB PO SCH ×2 (08:15→20:44)
[2021-12-26] MEDS: Enoxaparin Sodium 40 MG/0.4 ML SYRINGE SC SCH (08:15)
[2021-12-26] MEDS: Midodrine HCl 5 MG TAB PO SCH ×2 (08:15→20:45)
[2021-12-26] MEDS: Polyethylene Glycol 3350 17 GM Packet PO SCH (08:15)
[2021-12-26] MEDS: Clopidogrel Bisulfate 75 MG TAB PO SCH (08:16)
[2021-12-26] MEDS: Gabapentin 100 MG CAP PO SCH ×2 (08:16→20:44)
[2021-12-26] MEDS: levETIRAcetam 500 MG TAB PO SCH ×2 (08:16→20:45)
[2021-12-26] MEDS: Icosapent Ethyl 1 GM CAPSULE PO SCH ×2 (08:16→20:45)
[2021-12-26] MEDS: Atorvastatin Calcium 40 MG TAB PO SCH (20:44)
[2021-12-26] MEDS: Insulin Glargine 30 UNITS/0.3 ML VIAL SC SCH (20:49)
[2021-12-27] MEDS: Polyethylene Glycol 3350 17 GM Packet PO SCH (08:26)
[2021-12-27] MEDS: Enoxaparin Sodium 40 MG/0.4 ML SYRINGE SC SCH (08:26)
[2021-12-27] MEDS: levETIRAcetam 500 MG TAB PO SCH ×2 (08:27→20:06)
[2021-12-27] MEDS: Aspirin 81 mg Enteric Coated Tablet PO SCH (08:27)
[2021-12-27] MEDS: Icosapent Ethyl 1 GM CAPSULE PO SCH ×2 (08:27→20:06)
[2021-12-27] MEDS: Midodrine HCl 5 MG TAB PO SCH ×2 (08:27→20:04)
[2021-12-27] MEDS: Gabapentin 100 MG CAP PO SCH ×2 (08:28→20:05)
[2021-12-27] MEDS: Clopidogrel Bisulfate 75 MG TAB PO SCH (08:28)
[2021-12-27] MEDS: Famotidine 20 MG TAB PO SCH ×2 (08:28→20:04)
[2021-12-27] MEDS: Atorvastatin Calcium 40 MG TAB PO SCH (20:04)
[2021-12-28] MEDS: Insulin Glargine 30 UNITS/0.3 ML VIAL SC SCH ×2 (01:32→20:27)
[2021-12-28] MEDS: Famotidine 20 MG TAB PO SCH ×2 (09:04→20:19)
[2021-12-28] MEDS: Midodrine HCl 5 MG TAB PO SCH ×2 (09:04→20:20)
[2021-12-28] MEDS: Gabapentin 100 MG CAP PO SCH ×2 (09:04→20:19)
[2021-12-28] MEDS: levETIRAcetam 500 MG TAB PO SCH ×2 (09:05→20:20)
[2021-12-28] MEDS: Icosapent Ethyl 1 GM CAPSULE PO SCH ×2 (09:05→20:20)
[2021-12-28] MEDS: Clopidogrel Bisulfate 75 MG TAB PO SCH (09:05)
[2021-12-28] MEDS: Enoxaparin Sodium 40 MG/0.4 ML SYRINGE SC SCH (09:05)
[2021-12-28] MEDS: Aspirin 81 mg Enteric Coated Tablet PO SCH (09:05)
[2021-12-28] MEDS: Polyethylene Glycol 3350 17 GM Packet PO SCH (09:05)
[2021-12-28] MEDS: HumaLOG 300 UNITS/3 ML VIAL SC PRN (13:54)
[2021-12-28] MEDS: Atorvastatin Calcium 40 MG TAB PO SCH (20:19)
[2021-12-29] MEDS: Gabapentin 100 MG CAP PO SCH ×2 (09:11→20:34)
[2021-12-29] MEDS: Midodrine HCl 5 MG TAB PO SCH ×2 (09:11→20:36)
[2021-12-29] MEDS: Enoxaparin Sodium 40 MG/0.4 ML SYRINGE SC SCH (09:11)
[2021-12-29] MEDS: Aspirin 81 mg Enteric Coated Tablet PO SCH (09:12)
[2021-12-29] MEDS: Polyethylene Glycol 3350 17 GM Packet PO SCH (09:12)
[2021-12-29] MEDS: Clopidogrel Bisulfate 75 MG TAB PO SCH (09:12)
[2021-12-29] MEDS: Famotidine 20 MG TAB PO SCH ×2 (09:12→20:36)
[2021-12-29] MEDS: levETIRAcetam 500 MG TAB PO SCH ×2 (09:12→20:36)
[2021-12-29] MEDS: Icosapent Ethyl 1 GM CAPSULE PO SCH ×2 (09:12→20:36)
[2021-12-29] MEDS: Atorvastatin Calcium 40 MG TAB PO SCH (20:35)
[2021-12-29] MEDS: Senokot S 8.6-50 MG TAB PO PRN (20:37)
[2021-12-29] MEDS: Insulin Glargine 30 UNITS/0.3 ML VIAL SC SCH (20:40)
[2021-12-30] MEDS: Enoxaparin Sodium 40 MG/0.4 ML SYRINGE SC SCH (08:12)
[2021-12-30] MEDS: Polyethylene Glycol 3350 17 GM Packet PO SCH (08:12)
[2021-12-30] MEDS: Senokot S 8.6-50 MG TAB PO PRN ×2 (08:13→20:31)
[2021-12-30] MEDS: Midodrine HCl 5 MG TAB PO SCH ×2 (08:13→20:31)
[2021-12-30] MEDS: levETIRAcetam 500 MG TAB PO SCH ×2 (08:13→20:32)
[2021-12-30] MEDS: Aspirin 81 mg Enteric Coated Tablet PO SCH (08:13)
[2021-12-30] MEDS: Gabapentin 100 MG CAP PO SCH ×2 (08:13→20:32)
[2021-12-30] MEDS: Famotidine 20 MG TAB PO SCH ×2 (08:14→20:32)
[2021-12-30] MEDS: Clopidogrel Bisulfate 75 MG TAB PO SCH (08:14)
[2021-12-30] MEDS: Icosapent Ethyl 1 GM CAPSULE PO SCH ×2 (08:14→20:31)
[2021-12-30] MEDS: Atorvastatin Calcium 40 MG TAB PO SCH (20:32)
[2021-12-30] MEDS: Insulin Glargine 30 UNITS/0.3 ML VIAL SC SCH (20:35)
[2021-12-31 06:18] LABS: Hemoglobin 12.2 g/dL (14.0-18.0); Platelet Count 156 thou/uL (130-400)
[2021-12-31 08:28] VITALS: BP 133/70; TEMP 97.6
[2021-12-31] MEDS: Gabapentin 100 MG CAP PO SCH (08:43)
[2021-12-31] MEDS: Famotidine 20 MG TAB PO SCH (08:43)
[2021-12-31] MEDS: Clopidogrel Bisulfate 75 MG TAB PO SCH (08:44)
[2021-12-31] MEDS: Icosapent Ethyl 1 GM CAPSULE PO SCH (08:44)
[2021-12-31] MEDS: Midodrine HCl 5 MG TAB PO SCH (08:44)
[2021-12-31] MEDS: Polyethylene Glycol 3350 17 GM Packet PO SCH (08:44)
[2021-12-31] MEDS: Aspirin 81 mg Enteric Coated Tablet PO SCH (08:44)
[2021-12-31] MEDS: levETIRAcetam 500 MG TAB PO SCH (08:44)
[2021-12-31] MEDS: Enoxaparin Sodium 40 MG/0.4 ML SYRINGE SC SCH (08:44)
[2021-12-31] MEDS: HumaLOG 300 UNITS/3 ML VIAL SC PRN (13:33)
== END 2021-12-31 18:18 | DRG 552 ==
LOC: ERS 10:43 → T4-A 14:36 → OBSVTOIN 12-27 17:10
PROVIDERS: ADMIT Student in an Organized Health Care Education/Training Program; ATTEND Internal Medicine
DX: M48.02 Spinal stenosis, cervical region (principal); I50.22 Chronic systolic (congestive) heart failure; I95.1 Orthostatic hypotension; I25.10 Atherosclerotic heart disease of native coronary artery without angina pectoris; E87.5 Hyperkalemia; L85.9 Epidermal thickening, unspecified; D64.9 Anemia, unspecified; E11.65 Type 2 diabetes mellitus with hyperglycemia; I11.0 Hypertensive heart disease with heart failure; E78.5 Hyperlipidemia, unspecified; G25.0 Essential tremor; Z95.1 Presence of aortocoronary bypass graft; I25.2 Old myocardial infarction; Z88.5 Allergy status to narcotic agent; Z79.82 Long term (current) use of aspirin; Z79.4 Long term (current) use of insulin; Z79.899 Other long term (current) drug therapy; Z95.0 Presence of cardiac pacemaker; Z90.49 Acquired absence of other specified parts of digestive tract
CPT/HCPCS: 36415; 36416; 71045; 80048; 80053; 81003; 82550; 82565; 82728; 83540; 83550; 83735; 84443; 84484; 85014; 85018; 85025; 85049; 93005; J1650; J1815; U0003; U0005

== ENCOUNTER 2022-02-04 20:39 | Inpatient (IN) | payer MEDICARE ==
[~2022-02-04 20:39] MED LIST changes: -CEFAZOLIN 1 GM VIAL ONE; -CEFAZOLIN 2 GM/50 ML BAG ONE; -Fentanyl 100 MCG/2 ML VIAL ONE; +Iopamidol-370 76% 500 ML 1 ML ONE; -Midazolam HCl 2 mg/2 ml Vial ONE; -PROPOFOL 200 MG/20 ML VIAL ONE; -PROPOFOL 40 ML ONE
[2022-02-04] MEDS ORDERED: cefTRIAXone\\ROCEPHIN 1 GM VIAL ONE (21:56)
[2022-02-04 22:25] LABS: Mean Corpuscular HGB CONC 33.1 g/dL (32.0-36.0); Mean Corpuscular Hemoglobin 33.8 pg (27.0-31.0); RBC Distribution Width 12.5 % (11.5-14.5); Red Blood Cell (RBC) Count 3.53 mill/uL (4.70-6.10)
[2022-02-04 22:28] LABS: INR-International Normal Ratio 1.2; PTT 27.2 sec (22.9-36.1); Prothrombin Time 15.4 sec (12.0-14.7)
[2022-02-04 22:37] LABS: ALT (SGPT) 30 U/L (8-55); AST (SGOT) 29 U/L (5-34); Albumin 2.8 g/dL (3.4-4.8); Alkaline Phosphatase 68 U/L (40-110); Anion Gap 12 mmol/L (10-20); BUN (Urea Nitrogen) 30 mg/dL (8.4-25.7); Bilirubin, Total 0.7 mg/dL (0.2-1.2); Calc. Creatinine Clearance 0 mL/min (70-130); Calcium 8.4 mg/dL (7.8-10.44); Carbon Dioxide 21 mmol/L (23-31); Chloride 106 mmol/L (98-107); Estimated GFR 63; Globulin 2.4 g/dL (2.4-3.5); Glucose 100 mg/dL (83-110); Lipase 8 U/L (8-78); Magnesium 1.9 mg/dL (1.6-2.6); Protein, Total 5.2 g/dL (5.8-8.1); Sodium 135 mmol/L (136-145)
[2022-02-04 22:38] LABS: #Eosinphils 0.2 thou/uL (0.0-0.7); #Lymphocytes 1.5 thou/uL (1.20-3.40); #Monocytes 0.5 thou/uL (0.11-0.59); #Neutrophils 3.7 thou/uL (1.40-6.50); %Basophils 0.3 % (0.0-1.0); %Eosinophils 3.8 % (0.0-10.0); %Lymphocytes 25.3 % (21.0-51.0); %Monocytes 8.7 % (0.0-10.0); %Neutrophils 61.9 % (42.0-75.0); MDiff Complete? YES; Mean Platelet Volume 8.8 fL (7.4-10.4); Platelet Count 101 thou/uL (130-400); Platelet Morphology Comment Appears Decreased
[2022-02-05] MEDS ORDERED: Senokot S 8.6-50 MG TAB PO PRN (07:49)
[2022-02-05] MEDS ORDERED: Acetaminophen 325 MG TAB PO PRN (07:49)
[2022-02-05] MEDS ORDERED: HYDROcodone/Acetaminophen 5/325 mg Tablet PO PRN (07:49)
[2022-02-05] MEDS ORDERED: Dextrose 5% in Water 1,000 ML IV PRN (08:10)
[2022-02-05] MEDS ORDERED: Dextrose 50% Abboject 50 ML SYRINGE SLOW IVP PRN (08:10)
[2022-02-05] MEDS ORDERED: HumaLOG 300 UNITS/3 ML VIAL SC PRN (08:10)
[2022-02-05 08:47] LABS: Troponin I Less than 0.010 ng/mL (< 0.028)
[2022-02-05] MEDS ORDERED: Enoxaparin Sodium 40 MG/0.4 ML SYRINGE SC SCH (09:00)
[2022-02-05 09:18] LABS: Bacteria/HPF None Seen HPF (None Seen); Bilirubin Negative (Negative); Blood, Urine 3+ (Negative); Glucose, Urine (Dipstick) Greater than 1000 mg/dL (Negative); Ketone, Urine Negative (Negative); Leukocyte Negative Leu/uL (Negative); Nitrite Negative (Negative); Protein, Urine (Dipstick) 10 mg/dL (Neg-Trace); RBC/HPF Greater than 50 HPF (0-3); Specific Gravity, Urine 1.023 (1.002-1.036); Squamous Epithelial 0-3 HPF (0-3); pH, Urine 6.5 (5.0-9.0)
[2022-02-05 09:19] LABS: Clarity Hazy (Clear)
[2022-02-05 09:20] LABS: Urine Culture Reflex Yes Yes
[2022-02-05] MEDS ORDERED: Enoxaparin Sodium 40 MG/0.4 ML SYRINGE ONE (09:23)
[2022-02-05] MEDS ORDERED: Famotidine 20 MG TAB ONE (09:23)
[2022-02-05] MEDS: Famotidine 20 MG TAB PO SCH ×2 (09:28→21:39)
[2022-02-05] MEDS: Fludrocortisone Acetate 0.1 MG TAB PO SCH (09:28)
[2022-02-05 11:26] LABS: Troponin I 0.012 ng/mL (< 0.028)
[2022-02-05 13:02] LABS: Bilirubin Negative (Negative); Blood, Urine 3+ (Negative); Clarity Clear (Clear); Glucose, Urine (Dipstick) Greater than 1000 mg/dL (Negative); Ketone, Urine Negative (Negative); Leukocyte Negative Leu/uL (Negative); Nitrite Negative (Negative); Protein, Urine (Dipstick) Negative (Neg-Trace); RBC/HPF Greater than 50 HPF (0-3); Specific Gravity, Urine 1.012 (1.002-1.036); Squamous Epithelial None Seen HPF (0-3); Urobilinogen Normal mg/dL (Less than 2); WBC/HPF 0-3 HPF (0-3)
[2022-02-05 13:03] LABS: Bacteria/HPF 1+ HPF (None Seen)
[2022-02-05 16:24] VITALS: BMI 23.3
[2022-02-05] MEDS: cefTRIAXone\\ROCEPHIN 1 GM in Sodium Chloride 0.9% 100 ML IVPB SCH (21:39)
[2022-02-06 05:40] LABS: #Eosinphils 0.2 thou/uL (0.0-0.7); #Lymphocytes 1.6 thou/uL (1.20-3.40); #Monocytes 0.5 thou/uL (0.11-0.59); #Neutrophils 5.1 thou/uL (1.40-6.50); %Basophils 0.4 % (0.0-1.0); %Eosinophils 2.2 % (0.0-10.0); %Lymphocytes 21.1 % (21.0-51.0); %Neutrophils 69.3 % (42.0-75.0); Hemoglobin 14.6 g/dL (14.0-18.0); Mean Corpuscular HGB CONC 32.6 g/dL (32.0-36.0); Mean Corpuscular Hemoglobin 32.9 pg (27.0-31.0); Mean Platelet Volume 8.5 fL (7.4-10.4); Platelet Count 127 thou/uL (130-400); RBC Distribution Width 12.6 % (11.5-14.5); Red Blood Cell (RBC) Count 4.44 mill/uL (4.70-6.10); White Blood Cell (WBC) Count 7.4 thou/uL (4.8-10.8)
[2022-02-06 06:07] LABS: Anion Gap 11 mmol/L (10-20); BUN (Urea Nitrogen) 22 mg/dL (8.4-25.7); Calc. Creatinine Clearance 62 mL/min (70-130); Carbon Dioxide 24 mmol/L (23-31); Chloride 105 mmol/L (98-107); Estimated GFR 72; Glucose 96 mg/dL (83-110); Potassium 3.4 mmol/L (3.5-5.1); Sodium 137 mmol/L (136-145)
[2022-02-06] MEDS ORDERED: Potassium Chloride 20 MEQ TAB PO SCH (08:00)
[2022-02-06] MEDS ORDERED: Polyethylene Glycol 3350 17 GM Packet PO PRN (08:08)
[2022-02-06] MEDS: Clopidogrel Bisulfate 75 MG TAB PO SCH (08:35)
[2022-02-06] MEDS: Famotidine 20 MG TAB PO SCH ×2 (08:35→20:55)
[2022-02-06] MEDS: Gabapentin 100 MG CAP PO SCH ×2 (08:35→20:55)
[2022-02-06] MEDS: Empagliflozin 10 MG TAB PO SCH (08:35)
[2022-02-06] MEDS: levETIRAcetam 500 MG TAB PO SCH ×2 (08:36→20:55)
[2022-02-06] MEDS: Fludrocortisone Acetate 0.1 MG TAB PO SCH (08:36)
[2022-02-06] MEDS: Insulin Glargine 30 UNITS/0.3 ML VIAL SC SCH (08:37)
[2022-02-06] MEDS: cefTRIAXone\\ROCEPHIN 1 GM in Sodium Chloride 0.9% 100 ML IVPB SCH (20:54)
[2022-02-07] MEDS: Insulin Glargine 30 UNITS/0.3 ML VIAL SC SCH (09:02)
[2022-02-07] MEDS: Famotidine 20 MG TAB PO SCH ×2 (09:02→21:32)
[2022-02-07] MEDS: Clopidogrel Bisulfate 75 MG TAB PO SCH (09:02)
[2022-02-07] MEDS: Empagliflozin 10 MG TAB PO SCH (09:03)
[2022-02-07] MEDS: Gabapentin 100 MG CAP PO SCH ×2 (09:03→21:32)
[2022-02-07] MEDS: Fludrocortisone Acetate 0.1 MG TAB PO SCH (09:03)
[2022-02-07] MEDS: levETIRAcetam 500 MG TAB PO SCH ×2 (09:03→21:32)
[2022-02-07] MEDS: cefTRIAXone\\ROCEPHIN 1 GM in Sodium Chloride 0.9% 100 ML IVPB SCH (21:33)
[2022-02-08 07:47] VITALS: BP 136/76; TEMP 96.7
[2022-02-08] MEDS: Fludrocortisone Acetate 0.1 MG TAB PO SCH (08:53)
[2022-02-08] MEDS: levETIRAcetam 500 MG TAB PO SCH (08:53)
[2022-02-08] MEDS: Clopidogrel Bisulfate 75 MG TAB PO SCH (08:54)
[2022-02-08] MEDS: Gabapentin 100 MG CAP PO SCH (08:54)
[2022-02-08] MEDS: Famotidine 20 MG TAB PO SCH (08:54)
[2022-02-08] MEDS: Empagliflozin 10 MG TAB PO SCH (08:56)
[2022-02-08] MEDS: Insulin Glargine 30 UNITS/0.3 ML VIAL SC SCH (08:56)
== END 2022-02-08 10:20 | disposition home health service (06) | DRG 204 ==
LOC: ERS 20:39 → ERHOLD 23:49 → NEURO 02-05 15:45 → OBSVTOIN 02-06 17:25
PROVIDERS: ADMIT Internal Medicine; ATTEND Internal Medicine
DX: R06.02 Shortness of breath (principal); I50.22 Chronic systolic (congestive) heart failure; R53.1 Weakness; Z20.822 Contact with and (suspected) exposure to COVID-19; E11.9 Type 2 diabetes mellitus without complications; E78.5 Hyperlipidemia, unspecified; N40.0 Benign prostatic hyperplasia without lower urinary tract symptoms; F03.90 Unspecified dementia, unspecified severity, without behavioral disturbance, psychotic disturbance, mood disturbance, and anxiety; I25.10 Atherosclerotic heart disease of native coronary artery without angina pectoris; M47.26 Other spondylosis with radiculopathy, lumbar region; Z60.2 Problems related to living alone; I11.0 Hypertensive heart disease with heart failure; R25.1 Tremor, unspecified; I95.1 Orthostatic hypotension; E11.22 Type 2 diabetes mellitus with diabetic chronic kidney disease; Z88.5 Allergy status to narcotic agent; Z95.1 Presence of aortocoronary bypass graft; Z79.899 Other long term (current) drug therapy; Z79.82 Long term (current) use of aspirin; Z79.02 Long term (current) use of antithrombotics/antiplatelets; Z79.4 Long term (current) use of insulin; Z95.810 Presence of automatic (implantable) cardiac defibrillator; Z90.49 Acquired absence of other specified parts of digestive tract; Z87.440 Personal history of urinary (tract) infections; I25.2 Old myocardial infarction
CPT/HCPCS: 36415; 36416; 70450; 71045; 74177; 80048; 80053; 81001; 81015; 83605; 83690; 83735; 83880; 84484; 85025; 85610; 85730; 87040; 87086; 93005; 96361; 96365; 96372; 96376; G0378; J0696; J1650; J1815; J3490; Q9967; U0003; U0005

== ENCOUNTER 2022-08-03 10:05 | Inpatient (IN) | payer MEDICARE ==
[2022-08-03 14:14] VITALS: BMI 24.1
[2022-08-03] MEDS ORDERED: Acetaminophen 325 MG TAB PO PRN (14:30)
[2022-08-03] MEDS ORDERED: Ondansetron ODT 4 MG TAB SL PRN (14:30)
[2022-08-03] MEDS ORDERED: Ondansetron PF 4 MG/2 ML Vial IVP PRN (14:30)
[2022-08-03] MEDS ORDERED: Nitroglycerin 0.4 MG TAB (25 Tab Bottle) SL PRN (17:09)
[2022-08-03] MEDS ORDERED: HumaLOG 300 UNITS/3 ML VIAL SC PRN (17:10)
[2022-08-03] MEDS ORDERED: Dextrose 5% in Water 1,000 ML IV PRN (17:10)
[2022-08-03] MEDS ORDERED: Dextrose 50% Abboject 50 ML SYRINGE SLOW IVP PRN (17:10)
[2022-08-03] MEDS ORDERED: Polyethylene Glycol 3350 17 GM Packet PO PRN (17:11)
[2022-08-03] MEDS: Atorvastatin Calcium 40 MG TAB PO SCH (21:06)
[2022-08-03] MEDS: Gabapentin 100 MG CAP PO SCH (21:06)
[2022-08-03] MEDS: Icosapent Ethyl 1 GM CAPSULE PO SCH (21:06)
[2022-08-03] MEDS: levETIRAcetam 500 MG TAB PO SCH (21:06)
[2022-08-03] MEDS: Midodrine HCl 5 MG TAB PO SCH (21:07)
[2022-08-04 04:50] LABS: #Eosinphils 0.1 thou/uL (0.0-0.7); #Lymphocytes 1.3 thou/uL (1.20-3.40); #Monocytes 0.5 thou/uL (0.11-0.59); #Neutrophils 4.5 thou/uL (1.40-6.50); %Basophils 0.2 % (0.0-1.0); %Eosinophils 1.6 % (0.0-10.0); %Lymphocytes 19.9 % (21.0-51.0); %Monocytes 8.1 % (0.0-10.0); %Neutrophils 70.2 % (42.0-75.0); Hemoglobin 14.8 g/dL (14.0-18.0); Mean Corpuscular HGB CONC 32.5 g/dL (32.0-36.0); Mean Corpuscular Hemoglobin 32.2 pg (27.0-31.0); Mean Corpuscular Volume 99.2 fl (78.0-98.0); Mean Platelet Volume 9.1 fL (7.4-10.4); Platelet Count 112 10x3/uL (130-400); RBC Distribution Width 12.2 % (11.5-14.5); Red Blood Cell (RBC) Count 4.59 mill/uL (4.70-6.10); White Blood Cell (WBC) Count 6.5 10x3/uL (4.8-10.8)
[2022-08-04 05:14] LABS: Anion Gap 11 mmol/L (10-20); BUN (Urea Nitrogen) 18 mg/dL (8.4-25.7); Calc. Creatinine Clearance 47 mL/min (70-130); Calcium 9.1 mg/dL (7.8-10.44); Carbon Dioxide 26 mmol/L (23-31); Chloride 105 mmol/L (98-107); Estimated GFR 51; Glucose 135 mg/dL (83-110); Potassium 3.5 mmol/L (3.5-5.1); Sodium 138 mmol/L (136-145)
[2022-08-04] MEDS: Gabapentin 100 MG CAP PO SCH ×2 (09:11→22:04)
[2022-08-04] MEDS: Icosapent Ethyl 1 GM CAPSULE PO SCH ×2 (09:11→23:01)
[2022-08-04] MEDS: Midodrine HCl 5 MG TAB PO SCH ×2 (09:11→22:04)
[2022-08-04] MEDS: Clopidogrel Bisulfate 75 MG TAB PO SCH (09:12)
[2022-08-04] MEDS: levETIRAcetam 500 MG TAB PO SCH ×2 (09:12→22:03)
[2022-08-04] MEDS: Fludrocortisone Acetate 0.1 MG TAB PO SCH (09:12)
[2022-08-04] MEDS: Aspirin 81 mg Enteric Coated Tablet PO SCH (09:12)
[2022-08-04] MEDS: Insulin Glargine 30 UNITS/0.3 ML VIAL SC SCH (13:21)
[2022-08-04] MEDS: Empagliflozin 10 MG TAB PO SCH (13:29)
[2022-08-04] MEDS: Atorvastatin Calcium 40 MG TAB PO SCH (22:04)
[2022-08-05 06:00] LABS: #Eosinphils 0.1 thou/uL (0.0-0.7); #Lymphocytes 1.7 thou/uL (1.20-3.40); #Monocytes 0.6 thou/uL (0.11-0.59); #Neutrophils 4.6 thou/uL (1.40-6.50); %Basophils 0.1 % (0.0-1.0); %Eosinophils 1.4 % (0.0-10.0); %Lymphocytes 24.7 % (21.0-51.0); %Monocytes 8.7 % (0.0-10.0); %Neutrophils 65.1 % (42.0-75.0); Hemoglobin 15.2 g/dL (14.0-18.0); Mean Corpuscular HGB CONC 34.6 g/dL (32.0-36.0); Mean Corpuscular Hemoglobin 33.9 pg (27.0-31.0); Mean Corpuscular Volume 97.9 fl (78.0-98.0); Platelet Count 118 10x3/uL (130-400); RBC Distribution Width 12.1 % (11.5-14.5); Red Blood Cell (RBC) Count 4.47 mill/uL (4.70-6.10)
[2022-08-05 06:15] LABS: Anion Gap 10 mmol/L (10-20); BUN (Urea Nitrogen) 25 mg/dL (8.4-25.7); Calc. Creatinine Clearance 49 mL/min (70-130); Calcium 9.1 mg/dL (7.8-10.44); Carbon Dioxide 25 mmol/L (23-31); Chloride 106 mmol/L (98-107); Estimated GFR 54; Glucose 124 mg/dL (83-110); Potassium 3.8 mmol/L (3.5-5.1); Sodium 137 mmol/L (136-145)
[2022-08-05] MEDS: Empagliflozin 10 MG TAB PO SCH (08:39)
[2022-08-05] MEDS: levETIRAcetam 500 MG TAB PO SCH ×2 (08:39→21:07)
[2022-08-05] MEDS: Fludrocortisone Acetate 0.1 MG TAB PO SCH (08:39)
[2022-08-05] MEDS: Clopidogrel Bisulfate 75 MG TAB PO SCH (08:39)
[2022-08-05] MEDS: Midodrine HCl 5 MG TAB PO SCH ×2 (08:40→21:07)
[2022-08-05] MEDS: Aspirin 81 mg Enteric Coated Tablet PO SCH (08:40)
[2022-08-05] MEDS: Insulin Glargine 30 UNITS/0.3 ML VIAL SC SCH (08:40)
[2022-08-05] MEDS: Icosapent Ethyl 1 GM CAPSULE PO SCH ×2 (08:40→21:08)
[2022-08-05] MEDS: Gabapentin 100 MG CAP PO SCH ×2 (08:40→21:07)
[2022-08-05] MEDS: Atorvastatin Calcium 40 MG TAB PO SCH (21:07)
[2022-08-06 05:38] LABS: #Eosinphils 0.2 thou/uL (0.0-0.7); #Lymphocytes 1.8 thou/uL (1.20-3.40); #Monocytes 0.6 thou/uL (0.11-0.59); %Basophils 0.7 % (0.0-1.0); %Eosinophils 2.4 % (0.0-10.0); %Lymphocytes 27.3 % (21.0-51.0); %Neutrophils 60.6 % (42.0-75.0); Hemoglobin 15.5 g/dL (14.0-18.0); Mean Corpuscular HGB CONC 34.9 g/dL (32.0-36.0); Mean Corpuscular Hemoglobin 34.2 pg (27.0-31.0); Mean Platelet Volume 9.1 fL (7.4-10.4); Platelet Count 107 10x3/uL (130-400); RBC Distribution Width 12.2 % (11.5-14.5); Red Blood Cell (RBC) Count 4.54 mill/uL (4.70-6.10); White Blood Cell (WBC) Count 6.5 10x3/uL (4.8-10.8)
[2022-08-06 05:54] LABS: Anion Gap 12 mmol/L (10-20); BUN (Urea Nitrogen) 28 mg/dL (8.4-25.7); Calc. Creatinine Clearance 49 mL/min (70-130); Calcium 9.4 mg/dL (7.8-10.44); Carbon Dioxide 26 mmol/L (23-31); Chloride 105 mmol/L (98-107); Estimated GFR 55; Glucose 96 mg/dL (83-110); Sodium 139 mmol/L (136-145)
[2022-08-06] MEDS: Clopidogrel Bisulfate 75 MG TAB PO SCH (09:23)
[2022-08-06] MEDS: Aspirin 81 mg Enteric Coated Tablet PO SCH (09:23)
[2022-08-06] MEDS: Empagliflozin 10 MG TAB PO SCH (09:23)
[2022-08-06] MEDS: Midodrine HCl 5 MG TAB PO SCH (09:24)
[2022-08-06] MEDS: Gabapentin 100 MG CAP PO SCH (09:24)
[2022-08-06] MEDS: levETIRAcetam 500 MG TAB PO SCH (09:24)
[2022-08-06] MEDS: Icosapent Ethyl 1 GM CAPSULE PO SCH (09:24)
[2022-08-06] MEDS: Fludrocortisone Acetate 0.1 MG TAB PO SCH (09:24)
[2022-08-06] MEDS: Insulin Glargine 30 UNITS/0.3 ML VIAL SC SCH (09:25)
[2022-08-06 11:57] VITALS: BP 162/82; TEMP 97.5
== END 2022-08-06 12:10 | disposition home or self-care (01) | DRG 303 ==
LOC: 2SW 13:52 → OBSVTOIN 08-05 16:23 → 2SW 08-05 17:40
PROVIDERS: ADMIT Internal Medicine; ATTEND Internal Medicine
DX: I25.118 Atherosclerotic heart disease of native coronary artery with other forms of angina pectoris (principal); E11.9 Type 2 diabetes mellitus without complications; E78.5 Hyperlipidemia, unspecified; F03.90 Unspecified dementia, unspecified severity, without behavioral disturbance, psychotic disturbance, mood disturbance, and anxiety; Z77.090 Contact with and (suspected) exposure to asbestos; I95.1 Orthostatic hypotension; R25.1 Tremor, unspecified; N40.0 Benign prostatic hyperplasia without lower urinary tract symptoms; I25.5 Ischemic cardiomyopathy; Z88.5 Allergy status to narcotic agent; Z79.899 Other long term (current) drug therapy; Z79.82 Long term (current) use of aspirin; Z79.02 Long term (current) use of antithrombotics/antiplatelets; Z79.4 Long term (current) use of insulin; Z95.810 Presence of automatic (implantable) cardiac defibrillator; Z90.49 Acquired absence of other specified parts of digestive tract; Z95.1 Presence of aortocoronary bypass graft; Z87.891 Personal history of nicotine dependence
CPT/HCPCS: 36415; 36416; 80048; 84484; 85025; 96372; G0378; J1650; J1815

== ENCOUNTER 2022-09-20 22:20 | Inpatient (IN) | payer MEDICARE ==
[2022-09-20] MEDS ORDERED: fentaNYL 50 mcg/mL 1 mL Vial ONE (22:47)
[2022-09-20 22:55] LABS: #Eosinphils 0.1 thou/uL (0.0-0.7); #Monocytes 0.5 thou/uL (0.11-0.59); #Neutrophils 3.3 thou/uL (1.40-6.50); %Basophils 0.5 % (0.0-1.0); %Lymphocytes 31.5 % (21.0-51.0); %Monocytes 9.2 % (0.0-10.0); %Neutrophils 56.5 % (42.0-75.0); Hemoglobin 14.1 g/dL (14.0-18.0); Mean Corpuscular HGB CONC 33.5 g/dL (32.0-36.0); Mean Corpuscular Volume 95.7 fl (78.0-98.0); Mean Platelet Volume 10.9 fL (7.4-10.4); White Blood Cell (WBC) Count 5.9 10x3/uL (4.8-10.8)
[2022-09-20 22:58] LABS: Platelet Count 114 10x3/uL (130-400)
[2022-09-20 23:20] LABS: ALT (SGPT) 10 U/L (8-55); AST (SGOT) 14 U/L (5-34); Albumin 3.4 g/dL (3.4-4.8); Alkaline Phosphatase 88 U/L (40-110); Anion Gap 12 mmol/L (10-20); BUN (Urea Nitrogen) 11 mg/dL (8.4-25.7); Bilirubin, Total 0.6 mg/dL (0.2-1.2); Calc. Creatinine Clearance 0 mL/min (70-130); Calcium 8.7 mg/dL (7.8-10.44); Carbon Dioxide 25 mmol/L (23-31); Chloride 105 mmol/L (98-107); Estimated GFR 56; Globulin 2.4 g/dL (2.4-3.5); Glucose 146 mg/dL (83-110); Lipase 8 U/L (8-78); Magnesium 1.9 mg/dL (1.6-2.6); Potassium 3.6 mmol/L (3.5-5.1); Protein, Total 5.8 g/dL (5.8-8.1); Sodium 138 mmol/L (136-145)
[2022-09-20] MEDS ORDERED: Nitroglycerin 2% Ointment 1 INCH/1 GM Packet ONE (23:56)
[2022-09-21] MEDS ORDERED: Polyethylene Glycol 3350 17 GM Packet PO PRN (02:07)
[2022-09-21] MEDS ORDERED: Senokot S 8.6-50 MG TAB PO PRN (02:08)
[2022-09-21] MEDS ORDERED: Nitroglycerin 0.4 MG TAB (25 Tab Bottle) SL PRN (02:08)
[2022-09-21] MEDS ORDERED: Acetaminophen 325 MG TAB PO PRN (02:08)
[2022-09-21] MEDS ORDERED: Ondansetron ODT 4 MG TAB PO PRN (02:08)
[2022-09-21] MEDS ORDERED: Dextrose 50% Abboject 50 ML SYRINGE SLOW IVP PRN (02:10)
[2022-09-21] MEDS ORDERED: Dextrose 5% in Water 1,000 ML IV PRN (02:10)
[2022-09-21] MEDS ORDERED: HumaLOG 300 UNITS/3 ML VIAL SC PRN ×2 (02:10)
[2022-09-21 02:40] LABS: Troponin I 0.057 ng/mL (< 0.028)
[2022-09-21 02:47] VITALS: BMI 23.7
[2022-09-21 04:55] LABS: #Eosinphils 0.1 thou/uL (0.0-0.7); #Monocytes 0.5 thou/uL (0.11-0.59); #Neutrophils 3.7 thou/uL (1.40-6.50); %Basophils 0.3 % (0.0-1.0); %Eosinophils 1.7 % (0.0-10.0); %Lymphocytes 28.3 % (21.0-51.0); %Monocytes 8.4 % (0.0-10.0); Hemoglobin 16.2 g/dL (14.0-18.0); Mean Corpuscular HGB CONC 33.1 g/dL (32.0-36.0); Mean Corpuscular Volume 96.6 fl (78.0-98.0); Mean Platelet Volume 11.3 fL (7.4-10.4); Red Blood Cell (RBC) Count 5.06 mill/uL (4.70-6.10)
[2022-09-21 04:59] LABS: Platelet Count 114 10x3/uL (130-400)
[2022-09-21 05:05] LABS: Anion Gap 15 mmol/L (10-20); BUN (Urea Nitrogen) 10 mg/dL (8.4-25.7); Calc. Creatinine Clearance 57 mL/min (70-130); Calcium 9.1 mg/dL (7.8-10.44); Carbon Dioxide 23 mmol/L (23-31); Chloride 104 mmol/L (98-107); Estimated GFR 65; Glucose 136 mg/dL (83-110); Potassium 3.6 mmol/L (3.5-5.1); Sodium 138 mmol/L (136-145)
[2022-09-21 05:10] LABS: Troponin I 0.019 ng/mL (< 0.028)
[2022-09-21] MEDS: Famotidine 20 MG TAB PO SCH ×2 (09:16→20:00)
[2022-09-21] MEDS: Empagliflozin 10 MG TAB PO SCH (09:16)
[2022-09-21] MEDS: Clopidogrel Bisulfate 75 MG TAB PO SCH (09:16)
[2022-09-21] MEDS: Aspirin 81 mg Enteric Coated Tablet PO SCH (09:16)
[2022-09-21] MEDS: Gabapentin 100 MG CAP PO SCH ×2 (09:17→20:01)
[2022-09-21] MEDS: Fludrocortisone Acetate 0.1 MG TAB PO SCH (09:17)
[2022-09-21] MEDS: Icosapent Ethyl 1 GM CAPSULE PO SCH ×2 (09:18→20:01)
[2022-09-21] MEDS: Insulin Glargine 30 UNITS/0.3 ML VIAL SC SCH (09:18)
[2022-09-21] MEDS: levETIRAcetam 500 MG TAB PO SCH ×2 (09:19→20:01)
[2022-09-21] MEDS: Midodrine HCl 5 MG TAB PO SCH ×2 (09:19→20:02)
[2022-09-21] MEDS ORDERED: hydrALAZINE 20 MG/ML VIAL SLOW IVP PRN (16:42)
[2022-09-21] MEDS: Atorvastatin Calcium 40 MG TAB PO SCH (20:00)
[2022-09-22] MEDS: Empagliflozin 10 MG TAB PO SCH (08:42)
[2022-09-22] MEDS: Aspirin 81 mg Enteric Coated Tablet PO SCH (08:42)
[2022-09-22] MEDS: Clopidogrel Bisulfate 75 MG TAB PO SCH (08:42)
[2022-09-22] MEDS: Gabapentin 100 MG CAP PO SCH ×2 (08:43→20:53)
[2022-09-22] MEDS: Famotidine 20 MG TAB PO SCH ×2 (08:43→20:52)
[2022-09-22] MEDS: Midodrine HCl 5 MG TAB PO SCH ×2 (08:43→20:54)
[2022-09-22] MEDS: Fludrocortisone Acetate 0.1 MG TAB PO SCH (08:43)
[2022-09-22] MEDS: Icosapent Ethyl 1 GM CAPSULE PO SCH ×2 (08:43→20:52)
[2022-09-22] MEDS: levETIRAcetam 500 MG TAB PO SCH ×2 (08:43→20:53)
[2022-09-22] MEDS: Insulin Glargine 30 UNITS/0.3 ML VIAL SC SCH (08:43)
[2022-09-22] MEDS: Atorvastatin Calcium 40 MG TAB PO SCH (20:52)
[2022-09-23 08:05] VITALS: BP 142/66; TEMP 97.5
[2022-09-23] MEDS: Midodrine HCl 5 MG TAB PO SCH (10:38)
[2022-09-23] MEDS: Famotidine 20 MG TAB PO SCH (10:38)
[2022-09-23] MEDS: Icosapent Ethyl 1 GM CAPSULE PO SCH (10:38)
[2022-09-23] MEDS: Clopidogrel Bisulfate 75 MG TAB PO SCH (10:39)
[2022-09-23] MEDS: levETIRAcetam 500 MG TAB PO SCH (10:39)
[2022-09-23] MEDS: Aspirin 81 mg Enteric Coated Tablet PO SCH (10:39)
[2022-09-23] MEDS: Empagliflozin 10 MG TAB PO SCH (10:39)
[2022-09-23] MEDS: Gabapentin 100 MG CAP PO SCH (10:39)
[2022-09-23] MEDS: Insulin Glargine 30 UNITS/0.3 ML VIAL SC SCH (10:40)
[2022-09-23] MEDS: Fludrocortisone Acetate 0.1 MG TAB PO SCH (10:40)
== END 2022-09-23 12:04 | disposition home or self-care (01) | DRG 303 ==
LOC: ERS 22:20 → 2NO 09-21 01:18 → OBSVTOIN 09-22 09:42
PROVIDERS: ADMIT Student in an Organized Health Care Education/Training Program; ATTEND Family Medicine
DX: I25.708 Atherosclerosis of coronary artery bypass graft(s), unspecified, with other forms of angina pectoris (principal); F03.93 Unspecified dementia, unspecified severity, with mood disturbance; I10 Essential (primary) hypertension; I95.1 Orthostatic hypotension; I67.9 Cerebrovascular disease, unspecified; E11.51 Type 2 diabetes mellitus with diabetic peripheral angiopathy without gangrene; N40.0 Benign prostatic hyperplasia without lower urinary tract symptoms; E78.5 Hyperlipidemia, unspecified; Z88.8 Allergy status to other drugs, medicaments and biological substances; Z79.899 Other long term (current) drug therapy; Z79.82 Long term (current) use of aspirin; Z79.4 Long term (current) use of insulin; Z90.49 Acquired absence of other specified parts of digestive tract; Z95.1 Presence of aortocoronary bypass graft; Z95.810 Presence of automatic (implantable) cardiac defibrillator; Z98.890 Other specified postprocedural states; I25.2 Old myocardial infarction; Z86.73 Personal history of transient ischemic attack (TIA), and cerebral infarction without residual deficits
CPT/HCPCS: 36415; 36416; 80048; 80053; 83690; 83735; 83880; 84484; 85025; 93005; 94760; 96372; 96374; G0378; J1650; J1815; J3010

== ENCOUNTER 2023-01-16 15:59 | Inpatient (IN) | payer MEDICARE ==
[2023-01-16 17:51] LABS: #Eosinphils 0.2 thou/uL (0.0-0.7); #Monocytes 0.5 thou/uL (0.11-0.59); #Neutrophils 3.5 thou/uL (1.40-6.50); %Basophils 0.6 % (0.0-1.0); %Eosinophils 2.5 % (0.0-10.0); %Monocytes 8.3 % (0.0-10.0); %Neutrophils 54.4 % (42.0-75.0); Hematocrit 43.2 % (42.0-52.0); Hemoglobin 14.3 g/dL (14.0-18.0); Mean Corpuscular HGB CONC 33.1 g/dL (32.0-36.0); Mean Corpuscular Hemoglobin 32.4 pg (27.0-31.0); Mean Platelet Volume 10.8 fL (7.4-10.4); Platelet Count 126 10x3/uL (130-400); RBC Distribution Width 13.4 % (11.5-14.5); Red Blood Cell (RBC) Count 4.41 mill/uL (4.70-6.10); White Blood Cell (WBC) Count 6.4 10x3/uL (4.8-10.8)
[2023-01-16 18:15] LABS: ALT (SGPT) 9 U/L (8-55); AST (SGOT) 15 U/L (5-34); Albumin 3.3 g/dL (3.4-4.8); Alkaline Phosphatase 92 U/L (40-110); Anion Gap 11 mmol/L (10-20); BUN (Urea Nitrogen) 12 mg/dL (8.4-25.7); Bilirubin, Total 0.8 mg/dL (0.2-1.2); Calc. Creatinine Clearance 0 mL/min (70-130); Calcium 8.8 mg/dL (7.8-10.44); Carbon Dioxide 25 mmol/L (23-31); Chloride 109 mmol/L (98-107); Estimated GFR 72; Globulin 2.5 g/dL (2.4-3.5); Glucose 104 mg/dL (83-110); Potassium 3.4 mmol/L (3.5-5.1); Protein, Total 5.8 g/dL (5.8-8.1); Sodium 142 mmol/L (136-145)
[2023-01-16 18:19] LABS: Troponin I Less than 0.010 ng/mL (< 0.028)
[2023-01-16] MEDS ORDERED: Polyethylene Glycol 3350 17 GM Packet PO PRN (20:04)
[2023-01-16] MEDS ORDERED: Ondansetron ODT 4 MG TAB PO PRN (20:07)
[2023-01-16] MEDS ORDERED: Acetaminophen 325 MG TAB PO PRN (20:07)
[2023-01-16] MEDS ORDERED: Senokot S 8.6-50 MG TAB PO PRN (20:07)
[2023-01-16] MEDS ORDERED: Calcium Carbonate 500 MG ChewTAB PO PRN (20:07)
[2023-01-16] MEDS ORDERED: Dextrose 5% in Water 1,000 ML IV PRN (20:08)
[2023-01-16] MEDS ORDERED: Dextrose 50% Abboject 50 ML SYRINGE SLOW IVP PRN (20:08)
[2023-01-16] MEDS ORDERED: Glucagon 1 MG/ML KIT IM PRN (20:08)
[2023-01-16] MEDS ORDERED: HumaLOG 300 UNITS/3 ML VIAL SC PRN ×2 (20:08)
[2023-01-16] MEDS ORDERED: Electrolyte Replacement Protocol 1 EACH FS PRN (20:11)
[2023-01-16] MEDS ORDERED: Potassium Chloride 20 MEQ TAB PO SCH (21:00)
[2023-01-16] MEDS ORDERED: Midodrine HCl 5 MG TAB PO SCH (21:00)
[2023-01-16] MEDS: levETIRAcetam 500 MG TAB PO SCH (21:29)
[2023-01-16] MEDS: Atorvastatin Calcium 40 MG TAB PO SCH (21:29)
[2023-01-16] MEDS: Famotidine 20 MG TAB PO SCH (21:29)
[2023-01-16] MEDS: Icosapent Ethyl 1 GM CAPSULE PO SCH (21:29)
[2023-01-16 23:14] LABS: Troponin I Less than 0.010 ng/mL (< 0.028)
[2023-01-17 01:19] LABS: Troponin I 0.011 ng/mL (< 0.028)
[2023-01-17 01:36] LABS: Potassium 3.9 mmol/L (3.5-5.1)
[2023-01-17 03:33] VITALS: BMI 28.0
[2023-01-17 06:06] LABS: Anion Gap 12 mmol/L (10-20); BUN (Urea Nitrogen) 13 mg/dL (8.4-25.7); Calc. Creatinine Clearance 69 mL/min (70-130); Calcium 8.7 mg/dL (7.8-10.44); Carbon Dioxide 24 mmol/L (23-31); Chloride 108 mmol/L (98-107); Estimated GFR 82; Glucose 105 mg/dL (83-110); Potassium 3.9 mmol/L (3.5-5.1); Sodium 140 mmol/L (136-145)
[2023-01-17] MEDS ORDERED: hydrALAZINE 20 MG/ML VIAL SLOW IVP PRN (08:19)
[2023-01-17] MEDS: Icosapent Ethyl 1 GM CAPSULE PO SCH ×2 (08:51→21:02)
[2023-01-17] MEDS: Midodrine HCl 5 MG TAB PO SCH ×2 (08:52→21:02)
[2023-01-17] MEDS: Famotidine 20 MG TAB PO SCH ×2 (08:53→21:03)
[2023-01-17] MEDS: Clopidogrel Bisulfate 75 MG TAB PO SCH (08:54)
[2023-01-17] MEDS: Aspirin 81 mg Enteric Coated Tablet PO SCH (08:54)
[2023-01-17] MEDS: levETIRAcetam 500 MG TAB PO SCH ×2 (08:54→21:03)
[2023-01-17] MEDS: Empagliflozin 10 MG TAB PO SCH (08:54)
[2023-01-17] MEDS: Insulin Glargine 30 UNITS/0.3 ML VIAL SC SCH (08:56)
[2023-01-17] MEDS: Gabapentin 100 MG CAP PO SCH ×2 (08:57→21:03)
[2023-01-17] MEDS: Atorvastatin Calcium 40 MG TAB PO SCH (21:02)
[2023-01-18 07:10] LABS: #Eosinphils 0.1 thou/uL (0.0-0.7); #Monocytes 0.5 thou/uL (0.11-0.59); #Neutrophils 4.3 thou/uL (1.40-6.50); %Basophils 0.6 % (0.0-1.0); %Eosinophils 1.7 % (0.0-10.0); %Lymphocytes 24.3 % (21.0-51.0); %Monocytes 7.7 % (0.0-10.0); %Neutrophils 65.4 % (42.0-75.0); Hematocrit 45.3 % (42.0-52.0); Hemoglobin 15.5 g/dL (14.0-18.0); Mean Corpuscular HGB CONC 34.2 g/dL (32.0-36.0); Mean Corpuscular Hemoglobin 32.7 pg (27.0-31.0); Mean Corpuscular Volume 95.6 fl (78.0-98.0); Mean Platelet Volume 11.3 fL (7.4-10.4); Platelet Count 123 10x3/uL (130-400); RBC Distribution Width 13.2 % (11.5-14.5); Red Blood Cell (RBC) Count 4.74 mill/uL (4.70-6.10); White Blood Cell (WBC) Count 6.6 10x3/uL (4.8-10.8)
[2023-01-18 07:35] LABS: Anion Gap 10 mmol/L (10-20); BUN (Urea Nitrogen) 14 mg/dL (8.4-25.7); Calc. Creatinine Clearance 59 mL/min (70-130); Calcium 9.1 mg/dL (7.8-10.44); Carbon Dioxide 23 mmol/L (23-31); Chloride 109 mmol/L (98-107); Estimated GFR 68; Glucose 84 mg/dL (83-110); Potassium 3.9 mmol/L (3.5-5.1); Sodium 138 mmol/L (136-145)
[2023-01-18] MEDS: Midodrine HCl 5 MG TAB PO SCH ×2 (08:47→21:26)
[2023-01-18] MEDS: Icosapent Ethyl 1 GM CAPSULE PO SCH ×2 (08:47→21:25)
[2023-01-18] MEDS: Clopidogrel Bisulfate 75 MG TAB PO SCH (08:47)
[2023-01-18] MEDS: Gabapentin 100 MG CAP PO SCH ×2 (08:47→21:25)
[2023-01-18] MEDS: Aspirin 81 mg Enteric Coated Tablet PO SCH (08:47)
[2023-01-18] MEDS: Famotidine 20 MG TAB PO SCH ×2 (08:47→21:26)
[2023-01-18] MEDS: levETIRAcetam 500 MG TAB PO SCH ×2 (08:48→21:26)
[2023-01-18] MEDS: Insulin Glargine 30 UNITS/0.3 ML VIAL SC SCH (08:48)
[2023-01-18] MEDS: Empagliflozin 10 MG TAB PO SCH (08:48)
[2023-01-18] MEDS: Atorvastatin Calcium 40 MG TAB PO SCH (21:25)
[2023-01-19] MEDS: Aspirin 81 mg Enteric Coated Tablet PO SCH (09:02)
[2023-01-19] MEDS: Midodrine HCl 5 MG TAB PO SCH ×2 (09:02→21:22)
[2023-01-19] MEDS: Gabapentin 100 MG CAP PO SCH ×2 (09:03→21:21)
[2023-01-19] MEDS: Empagliflozin 10 MG TAB PO SCH (09:04)
[2023-01-19] MEDS: levETIRAcetam 500 MG TAB PO SCH ×2 (09:04→21:22)
[2023-01-19] MEDS: Icosapent Ethyl 1 GM CAPSULE PO SCH ×2 (09:04→21:22)
[2023-01-19] MEDS: Clopidogrel Bisulfate 75 MG TAB PO SCH (09:05)
[2023-01-19] MEDS: Famotidine 20 MG TAB PO SCH ×2 (09:05→21:22)
[2023-01-19] MEDS: Insulin Glargine 30 UNITS/0.3 ML VIAL SC SCH (09:05)
[2023-01-19] MEDS: Atorvastatin Calcium 40 MG TAB PO SCH (21:22)
[2023-01-20] MEDS: Clopidogrel Bisulfate 75 MG TAB PO SCH (08:53)
[2023-01-20] MEDS: Aspirin 81 mg Enteric Coated Tablet PO SCH (08:53)
[2023-01-20] MEDS: Famotidine 20 MG TAB PO SCH (08:53)
[2023-01-20] MEDS: Empagliflozin 10 MG TAB PO SCH (08:53)
[2023-01-20] MEDS: Gabapentin 100 MG CAP PO SCH (08:53)
[2023-01-20] MEDS: Midodrine HCl 5 MG TAB PO SCH (08:54)
[2023-01-20] MEDS: Insulin Glargine 30 UNITS/0.3 ML VIAL SC SCH (08:54)
[2023-01-20] MEDS: levETIRAcetam 500 MG TAB PO SCH (08:54)
[2023-01-20] MEDS: Icosapent Ethyl 1 GM CAPSULE PO SCH (08:55)
[2023-01-20 12:02] VITALS: BP 139/75; TEMP 97.5
== END 2023-01-20 12:50 | disposition home or self-care (01) | DRG 303 ==
LOC: ERS 15:59 → 2SW 19:46 → OBSVTOIN 01-17 15:16
PROVIDERS: ADMIT Student in an Organized Health Care Education/Training Program; ATTEND Internal Medicine
DX: I25.110 Atherosclerotic heart disease of native coronary artery with unstable angina pectoris (principal); I95.1 Orthostatic hypotension; F03.90 Unspecified dementia, unspecified severity, without behavioral disturbance, psychotic disturbance, mood disturbance, and anxiety; N40.0 Benign prostatic hyperplasia without lower urinary tract symptoms; E78.5 Hyperlipidemia, unspecified; I25.5 Ischemic cardiomyopathy; Z88.8 Allergy status to other drugs, medicaments and biological substances; Z79.82 Long term (current) use of aspirin; Z79.899 Other long term (current) drug therapy; Z79.4 Long term (current) use of insulin; Z95.810 Presence of automatic (implantable) cardiac defibrillator; Z95.1 Presence of aortocoronary bypass graft; Z90.49 Acquired absence of other specified parts of digestive tract; Z98.890 Other specified postprocedural states; I25.2 Old myocardial infarction
CPT/HCPCS: 36415; 36416; 71045; 80048; 80053; 84484; 85025; 93005; J0360; J1650; J1815

== ENCOUNTER 2024-02-02 09:16 | Inpatient (IN) | payer MEDICARE ==
[2024-02-02 10:37] LABS: #Basophils 0.04 10x3/uL (0.0-0.2); %Basophils 0.4 % (0.0-1.0); %Eosinophils 1.7 % (0.0-10.0); %Lymphocytes 41.6 % (21.0-51.0); %Monocytes 6.6 % (0.0-10.0); %Neutrophils 49.4 % (42.0-75.0); Hematocrit 44.1 % (42.0-52.0); Hemoglobin 14.8 g/dL (14.0-18.0); Mean Corpuscular HGB CONC 33.6 g/dL (32.0-36.0); Mean Corpuscular Hemoglobin 32.2 pg (27.0-31.0); Mean Corpuscular Volume 96.1 fL (78.0-98.0); Mean Platelet Volume 10.9 fL (7.4-10.4); Platelet Count 161 10x3/uL (130-400); RBC Distribution Width 13.5 % (11.5-14.5); Red Blood Cell (RBC) Count 4.59 mill/uL (4.70-6.10)
[2024-02-02 10:49] LABS: ALT (SGPT) 15 U/L (8-55); AST (SGOT) 24 U/L (5-34); Albumin 3.2 g/dL (3.4-4.8); Alkaline Phosphatase 99 U/L (40-110); Anion Gap 11 mmol/L (10-20); BUN (Urea Nitrogen) 11 mg/dL (8.4-25.7); Bilirubin, Total 1.2 mg/dL (0.2-1.2); Calc. Creatinine Clearance 0 mL/min (70-130); Calcium 9.1 mg/dL (7.8-10.44); Carbon Dioxide 27 mmol/L (23-31); Chloride 105 mmol/L (98-107); Estimated GFR 62; Globulin 3.4 g/dL (2.4-3.5); Glucose 121 mg/dL (83-110); Lipase 7 U/L (8-78); Protein, Total 6.6 g/dL (5.8-8.1); Sodium 139 mmol/L (136-145)
[2024-02-02 10:58] LABS: Troponin I Less than 0.010 ng/mL (< 0.028)
[2024-02-02] MEDS ORDERED: Nitroglycerin 2% Ointment 1 INCH/1 GM Packet ONE (12:45)
[2024-02-02] MEDS ORDERED: Ondansetron PF 4 MG/2 ML Vial IVP PRN (14:25)
[2024-02-02] MEDS ORDERED: Senokot S 8.6-50 MG TAB PO PRN (14:25)
[2024-02-02] MEDS ORDERED: Calcium Carbonate 500 MG ChewTAB PO PRN (14:25)
[2024-02-02] MEDS ORDERED: Acetaminophen 325 MG TAB PO PRN (14:25)
[2024-02-02] MEDS ORDERED: Dextrose 50% Abboject 50 ML SYRINGE SLOW IVP PRN (14:27)
[2024-02-02] MEDS ORDERED: Glucagon 1 MG/ML KIT IM PRN (14:27)
[2024-02-02] MEDS ORDERED: Dextrose 5% in Water 1,000 ML IV PRN (14:27)
[2024-02-02] MEDS ORDERED: Insulin Lispro 100 UNIT/ML 10 ML VIAL SC PRN ×2 (14:27)
[2024-02-02 15:25] LABS: Troponin I Less than 0.010 ng/mL (< 0.028)
[2024-02-02 17:30] VITALS: BMI 22.1
[2024-02-02 19:20] LABS: Troponin I Less than 0.010 ng/mL (< 0.028)
[2024-02-02] MEDS: Fish Oil 1,000 MG CAP PO SCH (20:41)
[2024-02-02] MEDS: Gabapentin 100 MG CAP PO SCH (20:41)
[2024-02-02] MEDS: Atorvastatin Calcium 40 MG TAB PO SCH (20:41)
[2024-02-02] MEDS: Ranolazine ER 500 MG TAB PO SCH (20:42)
[2024-02-02] MEDS: levETIRAcetam 500 MG TAB PO SCH (20:42)
[2024-02-03 08:54] VITALS: TEMP 97.4
[2024-02-03] MEDS: Insulin Glargine 30 UNITS/0.3 ML VIAL SC SCH (08:57)
[2024-02-03] MEDS: Clopidogrel Bisulfate 75 MG TAB PO SCH (08:57)
[2024-02-03] MEDS: Aspirin 81 mg Enteric Coated Tablet PO SCH (08:57)
[2024-02-03] MEDS: Empagliflozin 10 MG TAB PO SCH (08:57)
[2024-02-03] MEDS: Isosorbide Mononitrate 30 MG ER.TAB PO SCH (08:57)
[2024-02-03] MEDS: Enoxaparin 40 MG (0.4 mL) SYRINGE SC SCH (08:57)
[2024-02-03] MEDS: Metoprolol Tartrate 25 MG TAB PO SCH (10:58)
[2024-02-03 11:04] LABS: #Basophils 0.04 10x3/uL (0.0-0.2); %Basophils 0.4 % (0.0-1.0); %Eosinophils 0.8 % (0.0-10.0); %Lymphocytes 32.9 % (21.0-51.0); %Monocytes 5.6 % (0.0-10.0); Hematocrit 45.1 % (42.0-52.0); Hemoglobin 14.7 g/dL (14.0-18.0); Mean Corpuscular HGB CONC 32.6 g/dL (32.0-36.0); Mean Corpuscular Hemoglobin 32.3 pg (27.0-31.0); Mean Corpuscular Volume 99.1 fL (78.0-98.0); Mean Platelet Volume 10.9 fL (7.4-10.4); Platelet Count 163 10x3/uL (130-400); RBC Distribution Width 13.2 % (11.5-14.5); Red Blood Cell (RBC) Count 4.55 mill/uL (4.70-6.10)
[2024-02-03 11:22] LABS: Hemoglobin A1c 6.3 % (4.0-6.0)
[2024-02-03 11:27] LABS: ALT (SGPT) 15 U/L (8-55); AST (SGOT) 23 U/L (5-34); Albumin 3.2 g/dL (3.4-4.8); Alkaline Phosphatase 104 U/L (40-110); Anion Gap 16 mmol/L (10-20); BUN (Urea Nitrogen) 14 mg/dL (8.4-25.7); Bilirubin, Total 1.4 mg/dL (0.2-1.2); Calc. Creatinine Clearance 50 mL/min (70-130); Calcium 9.4 mg/dL (7.8-10.44); Carbon Dioxide 23 mmol/L (23-31); Cardiac Risk 3.1 (Less than 4.5); Chloride 107 mmol/L (98-107); Cholesterol 134 mg/dl (< 200 Desired); Estimated GFR 64; Globulin 3.4 g/dL (2.4-3.5); Glucose 92 mg/dL (83-110); HDL Cholesterol 43 mg/dL (>60 Neg Risk); LDL Cholesterol, Calculated 79 mg/dL; Magnesium 2.1 mg/dL (1.6-2.6); Potassium 4.2 mmol/L (3.5-5.1); Protein, Total 6.6 g/dL (5.8-8.1); Sodium 142 mmol/L (136-145); Triglycerides 61 mg/dL (Less than 150)
[2024-02-03 15:07] VITALS: BP 138/71
[2024-02-03] MEDS ORDERED: Metoprolol Tartrate 25 MG TAB PO SCH (21:00)
== END 2024-02-03 15:45 | disposition home or self-care (01) | DRG 303 ==
LOC: SUATTDRO 09:16 → ERS 09:16 → ERHOLD 14:27 → 2NO 17:20
PROVIDERS: ADMIT Internal Medicine; ATTEND Internal Medicine
DX: I25.118 Atherosclerotic heart disease of native coronary artery with other forms of angina pectoris (principal); E11.9 Type 2 diabetes mellitus without complications; I10 Essential (primary) hypertension; E78.5 Hyperlipidemia, unspecified; F03.90 Unspecified dementia, unspecified severity, without behavioral disturbance, psychotic disturbance, mood disturbance, and anxiety; G40.909 Epilepsy, unspecified, not intractable, without status epilepticus; Z88.6 Allergy status to analgesic agent
CPT/HCPCS: 36415; 71045; 80053; 80061; 83036; 83690; 83735; 83880; 84484; 85025; 93005; J1650; J1815

== ENCOUNTER 2024-02-24 09:46 | Inpatient (IN) | payer MEDICARE ==
[2024-02-24 11:25] LABS: #Basophils 0.04 10x3/uL (0.0-0.2); %Basophils 0.4 % (0.0-1.0); %Eosinophils 0.9 % (0.0-10.0); %Lymphocytes 27.5 % (21.0-51.0); %Monocytes 6.8 % (0.0-10.0); Hematocrit 41.4 % (42.0-52.0); Hemoglobin 13.5 g/dL (14.0-18.0); Mean Corpuscular HGB CONC 32.6 g/dL (32.0-36.0); Mean Corpuscular Hemoglobin 32.2 pg (27.0-31.0); Mean Corpuscular Volume 98.8 fL (78.0-98.0); Platelet Count 146 10x3/uL (130-400); RBC Distribution Width 13.4 % (11.5-14.5); Red Blood Cell (RBC) Count 4.19 mill/uL (4.70-6.10)
[2024-02-24 11:27] LABS: ALT (SGPT) 18 U/L (8-55); AST (SGOT) 27 U/L (5-34); Albumin 2.9 g/dL (3.4-4.8); Alkaline Phosphatase 85 U/L (40-110); Anion Gap 11 mmol/L (10-20); BUN (Urea Nitrogen) 11 mg/dL (8.4-25.7); CK (CPK) 221 U/L (30-200); Calc. Creatinine Clearance 0 mL/min (70-130); Calcium 8.6 mg/dL (7.8-10.44); Carbon Dioxide 23 mmol/L (23-31); Chloride 108 mmol/L (98-107); Estimated GFR 58; Globulin 2.6 g/dL (2.4-3.5); Glucose 116 mg/dL (83-110); Lipase 5 U/L (8-78); Potassium 3.3 mmol/L (3.5-5.1); Protein, Total 5.5 g/dL (5.8-8.1); Sodium 139 mmol/L (136-145)
[2024-02-24 11:47] LABS: Troponin I 0.011 ng/mL (< 0.028)
[2024-02-24] MEDS ORDERED: Potassium Chloride 20 MEQ TAB ONE (12:56)
[2024-02-24] MEDS ORDERED: Bacitracin 1 PK ONE (13:23)
[2024-02-24] MEDS ORDERED: Dextrose 5% in Water 1,000 ML IV PRN (14:46)
[2024-02-24] MEDS ORDERED: Ondansetron ODT 4 MG TAB PO PRN (14:46)
[2024-02-24] MEDS ORDERED: Insulin Regular, Human 100 UNIT/ML 10 ML VIAL SC PRN (14:46)
[2024-02-24] MEDS ORDERED: Glucagon 1 MG/ML KIT IM PRN (14:46)
[2024-02-24] MEDS ORDERED: Acetaminophen 325 MG TAB PO PRN (14:46)
[2024-02-24] MEDS ORDERED: Dextrose 50% Abboject 50 ML SYRINGE SLOW IVP PRN (14:46)
[2024-02-24] MEDS: Ibuprofen 200 MG TAB PO SCH (16:00)
[2024-02-24] MEDS: Sodium Chloride 0.9% 1,000 ML IV SCH (17:14)
[2024-02-24] MEDS: Famotidine 20 MG TAB PO SCH (20:51)
[2024-02-25] MEDS: Enoxaparin 40 MG (0.4 mL) SYRINGE SC SCH (08:24)
[2024-02-25] MEDS: FLU (Fluad Triv) TS24-25 (65UP)/MF59C/PF 45 MCG/0.5 ML Syringe IM ONE (08:24)
[2024-02-25 10:05] LABS: #Basophils 0.04 10x3/uL (0.0-0.2); %Basophils 0.4 % (0.0-1.0); %Eosinophils 0.6 % (0.0-10.0); %Lymphocytes 29.1 % (21.0-51.0); %Monocytes 6.5 % (0.0-10.0); %Neutrophils 63.1 % (42.0-75.0); Hematocrit 44.6 % (42.0-52.0); Hemoglobin 14.2 g/dL (14.0-18.0); Mean Corpuscular HGB CONC 31.8 g/dL (32.0-36.0); Mean Corpuscular Hemoglobin 32.2 pg (27.0-31.0); Mean Corpuscular Volume 101.1 fL (78.0-98.0); Mean Platelet Volume 12.2 fL (7.4-10.4); Platelet Count 130 10x3/uL (130-400); RBC Distribution Width 13.2 % (11.5-14.5); Red Blood Cell (RBC) Count 4.41 mill/uL (4.70-6.10)
[2024-02-25 11:20] LABS: Chloride 109 mmol/L (98-107); Potassium 3.6 mmol/L (3.5-5.1); Sodium 139 mmol/L (136-145)
[2024-02-25 11:22] LABS: Glucose 81 mg/dL (83-110)
[2024-02-25 11:23] LABS: Anion Gap 13 mmol/L (10-20); Carbon Dioxide 21 mmol/L (23-31)
[2024-02-25 11:25] LABS: Calc. Creatinine Clearance 48 mL/min (70-130); Estimated GFR 62
[2024-02-25 11:26] LABS: BUN (Urea Nitrogen) 13 mg/dL (8.4-25.7)
[2024-02-25] MEDS: Midodrine HCl 5 MG TAB PO SCH (15:13)
[2024-02-25] MEDS: Icosapent Ethyl 1 GM CAPSULE PO SCH (15:14)
[2024-02-25] MEDS: Atorvastatin Calcium 40 MG TAB PO SCH (20:05)
[2024-02-25] MEDS: levETIRAcetam 500 MG TAB PO SCH (20:05)
[2024-02-25] MEDS ORDERED: Midodrine HCl 5 MG TAB PO SCH (21:00)
[2024-02-26] MEDS ORDERED: Melatonin 3 MG TAB PO PRN (02:54)
[2024-02-26] MEDS: traZODone HCl 50 MG TAB PO SCH (03:18)
[2024-02-26 05:37] LABS: #Basophils 0.05 10x3/uL (0.0-0.2); %Basophils 0.5 % (0.0-1.0); %Eosinophils 1.7 % (0.0-10.0); %Lymphocytes 39.8 % (21.0-51.0); %Monocytes 7.4 % (0.0-10.0); %Neutrophils 50.3 % (42.0-75.0); Hematocrit 46.3 % (42.0-52.0); Hemoglobin 15.2 g/dL (14.0-18.0); Mean Corpuscular HGB CONC 32.8 g/dL (32.0-36.0); Mean Corpuscular Hemoglobin 32.1 pg (27.0-31.0); Mean Corpuscular Volume 97.9 fL (78.0-98.0); Mean Platelet Volume 11.8 fL (7.4-10.4); Platelet Count 117 10x3/uL (130-400); RBC Distribution Width 13.2 % (11.5-14.5); Red Blood Cell (RBC) Count 4.73 mill/uL (4.70-6.10)
[2024-02-26 06:31] LABS: Anion Gap 14 mmol/L (10-20); BUN (Urea Nitrogen) 13 mg/dL (8.4-25.7); Calc. Creatinine Clearance 54 mL/min (70-130); Carbon Dioxide 20 mmol/L (23-31); Chloride 108 mmol/L (98-107); Estimated GFR 73; Glucose 72 mg/dL (83-110); Potassium 4.1 mmol/L (3.5-5.1); Sodium 138 mmol/L (136-145)
[2024-02-26] MEDS ORDERED: Non-Formulary Item 1 EACH (Insulin Glargine,Hum.Rec.Anlog [Lantus Solostar] 100 UNIT/ML P SC SCH (09:00)
[2024-02-26] MEDS ORDERED: Isosorbide Mononitrate 30 MG ER.TAB PO SCH (09:00)
[2024-02-26] MEDS: Aspirin 81 mg Enteric Coated Tablet PO SCH (09:59)
[2024-02-26] MEDS: Sertraline 25 MG TAB PO SCH (09:59)
[2024-02-26] MEDS: Clopidogrel Bisulfate 75 MG TAB PO SCH (10:00)
[2024-02-26] MEDS: Empagliflozin 10 MG TAB PO SCH (10:00)
[2024-02-26] MEDS: Famotidine 20 MG TAB PO SCH (20:11)
[2024-02-27 04:44] LABS: #Basophils 0.07 10x3/uL (0.0-0.2); %Basophils 0.6 % (0.0-1.0); %Eosinophils 2.1 % (0.0-10.0); %Lymphocytes 44.3 % (21.0-51.0); %Neutrophils 45.7 % (42.0-75.0); Hematocrit 43.1 % (42.0-52.0); Hemoglobin 14.2 g/dL (14.0-18.0); Mean Corpuscular HGB CONC 32.9 g/dL (32.0-36.0); Mean Corpuscular Hemoglobin 31.9 pg (27.0-31.0); Mean Corpuscular Volume 96.9 fL (78.0-98.0); Mean Platelet Volume 11.5 fL (7.4-10.4); Platelet Count 145 10x3/uL (130-400); RBC Distribution Width 13.3 % (11.5-14.5); Red Blood Cell (RBC) Count 4.45 mill/uL (4.70-6.10)
[2024-02-27 04:58] LABS: Anion Gap 10 mmol/L (10-20); BUN (Urea Nitrogen) 17 mg/dL (8.4-25.7); Calc. Creatinine Clearance 48 mL/min (70-130); Carbon Dioxide 23 mmol/L (23-31); Chloride 109 mmol/L (98-107); Estimated GFR 65; Glucose 97 mg/dL (83-110); Potassium 4.7 mmol/L (3.5-5.1); Sodium 137 mmol/L (136-145)
[2024-02-28 06:05] LABS: #Basophils 0.03 10x3/uL (0.0-0.2); %Basophils 0.3 % (0.0-1.0); %Eosinophils 1.7 % (0.0-10.0); %Lymphocytes 33.9 % (21.0-51.0); %Monocytes 9.8 % (0.0-10.0); %Neutrophils 53.9 % (42.0-75.0); Hematocrit 39.7 % (42.0-52.0); Hemoglobin 13.3 g/dL (14.0-18.0); Mean Corpuscular HGB CONC 33.5 g/dL (32.0-36.0); Mean Corpuscular Volume 95.4 fL (78.0-98.0); Mean Platelet Volume 11.2 fL (7.4-10.4); Platelet Count 144 10x3/uL (130-400); RBC Distribution Width 13.4 % (11.5-14.5); Red Blood Cell (RBC) Count 4.16 mill/uL (4.70-6.10)
[2024-02-28 06:23] LABS: Anion Gap 12 mmol/L (10-20); BUN (Urea Nitrogen) 20 mg/dL (8.4-25.7); Calc. Creatinine Clearance 12 mL/min (70-130); Calcium 8.9 mg/dL (7.8-10.44); Carbon Dioxide 21 mmol/L (23-31); Chloride 109 mmol/L (98-107); Estimated GFR 68; Glucose 135 mg/dL (83-110); Potassium 4.6 mmol/L (3.5-5.1); Sodium 137 mmol/L (136-145)
[2024-02-28 16:26] VITALS: BP 169/90; TEMP 98
[2024-02-29] MEDS ORDERED: Insulin Glargine 30 UNITS/0.3 ML VIAL SC SCH (09:00)
== END 2024-02-28 18:15 | DRG 312 ==
LOC: ERS 09:46 → 2NO 16:07 → SURG B 02-27 16:27
PROVIDERS: ADMIT Internal Medicine; ATTEND Internal Medicine
DX: I95.1 Orthostatic hypotension (principal); S22.011A Stable burst fracture of first thoracic vertebra, initial encounter for closed fracture; I25.10 Atherosclerotic heart disease of native coronary artery without angina pectoris; E11.43 Type 2 diabetes mellitus with diabetic autonomic (poly)neuropathy; N40.0 Benign prostatic hyperplasia without lower urinary tract symptoms; E87.6 Hypokalemia; E78.5 Hyperlipidemia, unspecified; Z66 Do not resuscitate; W18.30XA Fall on same level, unspecified, initial encounter; F03.90 Unspecified dementia, unspecified severity, without behavioral disturbance, psychotic disturbance, mood disturbance, and anxiety; I10 Essential (primary) hypertension; Z79.899 Other long term (current) drug therapy; Z88.8 Allergy status to other drugs, medicaments and biological substances; Z90.49 Acquired absence of other specified parts of digestive tract; Z95.1 Presence of aortocoronary bypass graft; Z79.82 Long term (current) use of aspirin
CPT/HCPCS: 36415; 36416; 70450; 70551; 71045; 72040; 72072; 72125; 80048; 80053; 82550; 83690; 83735; 83880; 84484; 85025; 93005; 93010; 93306; J1650; J7030